=== PATIENT | male | born 1955 | race Caucasian/White ===

== ENCOUNTER → 2018-06-24 | Outpatient (CLI) | payer OTHER ==
[2018-06-24 15:29] LABS: Protein, Urine Quantitative 579.7 mg/dL (0.0-11.9)
== END | disposition home or self-care (01) ==
LOC: LAB 06:00 → LAB SHORT 06:00 → LAB FUT 06-18 13:00
PROVIDERS: Internal Medicine Nephrology
DX: N18.3 Chronic kidney disease, stage 3 (moderate) (principal); D63.1 Anemia in chronic kidney disease; N25.81 Secondary hyperparathyroidism of renal origin; E55.9 Vitamin D deficiency, unspecified; E78.00 Pure hypercholesterolemia, unspecified; R76.9 Abnormal immunological finding in serum, unspecified; R94.6 Abnormal results of thyroid function studies; R94.5 Abnormal results of liver function studies
CPT/HCPCS: 81050; 82043; 82570; 84156

== ENCOUNTER 2018-08-01 13:45 | Inpatient (IN) | payer SELFPAY ==
[~2018-08-01] VITALS: Ht 188 cm; Wt 125.1 kg
[2018-08-01 14:32] LABS: BASOPHILS ABSOLUTE AUTO 0.03 K/mm3 (0.00-0.23); BASOPHILS PERCENT AUTO 0 % (0-2); EOSINOPHILS ABSOLUTE AUTO 0.09 K/mm3 (0.00-0.68); EOSINOPHILS PERCENT AUTO 1 % (0-6); Hematocrit 33.5 % (37.0-53.0); Hemoglobin 11.1 g/dL (13.5-17.5); IMMATURE GRAN ABSOLUTE AUTO 0.26 K/mm3 (0.00-0.10); IMMATURE GRAN PERCENT AUTO 2 % (0-1); LYMPHOCYTES ABSOLUTE AUTO 1.89 K/mm3 (0.84-5.20); LYMPHOCYTES PERCENT AUTO 15 % (21-46); MONOCYTES ABSOLUTE AUTO 1.16 K/mm3 (0.16-1.47); MONOCYTES PERCENT AUTO 9 % (4-13); Mean Corpuscular HGB 30.7 pg (26.0-34.0); Mean Corpuscular HGB Conc 33.1 g/dL (31.5-36.5); Mean Corpuscular Volume 93 fL (80-100); Mean Platelet Volume 10.1 fL (9.1-12.4); NEUTROPHILS ABSOLUTE AUTO 9.47 K/mm3 (1.96-9.15); NEUTROPHILS PERCENT AUTO 73 % (41-73); Platelet Count 284 K/mm3 (150-400); RDW Coefficient Variation 14.2 % (11.7-14.2); RDW Standard Deviation 48.7 fL (35.1-46.3); Red Blood Cell Count 3.62 M/mm3 (4.30-5.90)
[2018-08-01 14:44] LABS: Albumin, Blood 1.2 g/dL (3.4-5.0); Albumin/Globulin Ratio 0.4 (0.8-1.8); Bilirubin, Total 0.3 mg/dL (0.1-1.0); Bun/Creatinine Ratio 44.6 (12.0-20.0); Calcium, Blood 7.2 mg/dL (8.5-10.1); Creatinine, Blood 3.34 mg/dL (0.60-1.20); Globulin, Blood 3.1 g/dL (2.2-4.0); Potassium, Blood 3.8 mmol/L (3.5-5.5); Total Protein, Blood 4.3 g/dL (6.4-8.2)
[2018-08-01 15:38] LABS: Source, Urine Clean Catch
[2018-08-01 15:40] LABS: Bilirubin, Urine Neg (Neg); Blood, Urine 2+ (Neg); Glucose Qualitative, Urine Neg (Neg); Ketones, Urine Neg (Neg); Leukocyte Esterase, Urine Neg (Neg); Nitrite, Urine Neg (Neg); Protein, Urine 4+ (Neg); Specific Gravity, Urine 1.015 (1.003-1.022); Urobilinogen, Urine NORM (Normal)
[2018-08-01] MEDS ORDERED: ASPI325 PO (15:43)
[2018-08-01] MEDS ORDERED: ATOR80 PO (15:43)
[2018-08-01] MEDS ORDERED: ATOR10 PO (15:43)
[2018-08-01] MEDS ORDERED: CALC.25 PO (15:44)
[2018-08-01] MEDS ORDERED: BUME2 PO (15:44)
[2018-08-01] MEDS ORDERED: Vitamin D2000 UNIT PO (15:45)
[2018-08-01] MEDS ORDERED: FAMO20 PO (15:46)
[2018-08-01] MEDS ORDERED: HYDPAM50 PO (15:46)
[2018-08-01] MEDS ORDERED: CLON.1 PO (15:46)
[2018-08-01 15:47] LABS: Appearance, Urine Clear (Clear); Color, Urine Yellow (P-Yellow)
[2018-08-01] MEDS ORDERED: POTCHL10ER PO (15:47)
[2018-08-01] MEDS ORDERED: ONDA4ODT MM (15:47)
[2018-08-01] MEDS ORDERED: METO2.5 PO (15:47)
[2018-08-01 15:48] LABS: Hyaline Casts 0-2 /lpf (0-2); Squamous Epithelial Cells Few /hpf (Few)
[2018-08-01] MEDS ORDERED: PROP10 PO (15:48)
[2018-08-01] MEDS ORDERED: PRED20 PO (15:48)
[2018-08-01 15:49] LABS: Calcium Oxalate Crystals Rare /hpf
[2018-08-01] MEDS ORDERED: SERT50 PO (15:49)
[2018-08-01 15:50] LABS: Bacteria Few /hpf; Renal Epithelial Rare /hpf (0-Rare)
[2018-08-01 16:33] LABS: Free Thyroxine 0.94 ng/dL (0.70-1.60); Triiodothyronine, Free 1.89 pg/mL (2.18-3.98)
--- NOTE | 2018-08-01 17:54 | NUR ---
SHIFT SUMMARY THE PATIENT WAS ADMITTED BY DR. BRADSHAW FOR WEAKNESS AND POSSIBLE ARF. [facility], THE PATIENT REPORTS N&V TODAY. DR. PORRAS IS CONSULTING ON THE CASE. THE PATIENT IS RECEIVING A BOLUS OF LR AT THIS TIME AND RESTING, WILL CONTINUE TO MONITOR.
[2018-08-02] MEDS ORDERED: POTCHL10ER PO (01:24)
--- NOTE | 2018-08-02 04:43 | NUR ---
shift summary: Pt admitted late yesterday. VSS. Dr south into see last pm. Admission and med reconcilliation completed. bladder scan performed after voiding last pm and got [address] south notified per his instructions. Pt able to sleep most of shift last pm. Pt suffers from PTSD and depression.
[2018-08-02 05:40] LABS: BASOPHILS ABSOLUTE AUTO 0.02 K/mm3 (0.00-0.23); BASOPHILS PERCENT AUTO 0 % (0-2); EOSINOPHILS ABSOLUTE AUTO 0.17 K/mm3 (0.00-0.68); EOSINOPHILS PERCENT AUTO 2 % (0-6); Hematocrit 30.9 % (37.0-53.0); Hemoglobin 10.4 g/dL (13.5-17.5); IMMATURE GRAN ABSOLUTE AUTO 0.18 K/mm3 (0.00-0.10); IMMATURE GRAN PERCENT AUTO 2 % (0-1); LYMPHOCYTES ABSOLUTE AUTO 1.75 K/mm3 (0.84-5.20); LYMPHOCYTES PERCENT AUTO 19 % (21-46); MONOCYTES ABSOLUTE AUTO 0.78 K/mm3 (0.16-1.47); MONOCYTES PERCENT AUTO 8 % (4-13); Mean Corpuscular HGB 30.8 pg (26.0-34.0); Mean Corpuscular HGB Conc 33.7 g/dL (31.5-36.5); Mean Corpuscular Volume 91 fL (80-100); Mean Platelet Volume 10.1 fL (9.1-12.4); NEUTROPHILS ABSOLUTE AUTO 6.55 K/mm3 (1.96-9.15); NEUTROPHILS PERCENT AUTO 69 % (41-73); Platelet Count 248 K/mm3 (150-400); RDW Coefficient Variation 14.4 % (11.7-14.2); RDW Standard Deviation 47.8 fL (35.1-46.3); Red Blood Cell Count 3.38 M/mm3 (4.30-5.90); White Blood Cell Count 9.45 K/mm3 (4.00-11.30)
[2018-08-02 05:55] LABS: Alanine Aminotransfer (ALT/SGP 31 U/L (12-78); Albumin/Globulin Ratio 0.3 (0.8-1.8); Alk Phos 33 U/L (50-136); Anion Gap 7 mmol/L (6-16); Aspartate Aminotrans (AST/SGOT 34 U/L (12-37); Bilirubin, Direct <0.1 mg/dL (0.0-0.3); Bilirubin, Indirect Unable to Calculate mg/dL (0.1-0.7); Bilirubin, Total 0.5 mg/dL (0.1-1.0); Blood Urea Nitrogen 133 mg/dL (8-24); Bun/Creatinine Ratio 55.9 (12.0-20.0); CO2, Blood 25 mmol/L (21-32); Calcium, Blood 7.3 mg/dL (8.5-10.1); Chloride, Blood 107 mmol/L (98-108); Creatinine, Blood 2.38 mg/dL (0.60-1.20); Globulin, Blood 2.9 g/dL (2.2-4.0); Glomerular Filtration Rate 29 (60-); Glucose, Blood 99 mg/dL (70-99); Magnesium, Blood 2.8 mg/dL (1.6-2.4); Phosphorus, Blood 4.2 mg/dL (2.5-4.9); Potassium, Blood 3.9 mmol/L (3.5-5.5); Sodium, Blood 139 mmol/L (136-145); Total Protein, Blood 3.9 g/dL (6.4-8.2)
[2018-08-02 07:29] LABS: Amylase, Blood 84 U/L (25-115)
[2018-08-02 11:35] LABS: Campylobacter Sp Not Detected (NOT DETECT); Plesiomonas Shigelloides Not Detected (NOT DETECT)
[2018-08-02 11:36] LABS: Adenovirus F 40/41 Not Detected (NOT DETECT); Astrovirus Not Detected (NOT DETECT); Cryptosporidium Not Detected (NOT DETECT); Cyclospora Cayetanensis Not Detected (NOT DETECT); E. Coli O157 Not Detected (NOT DETECT); Entamoeba Histolytica Not Detected (NOT DETECT); Enteroaggregative E. coli-EAEC Not Detected (NOT DETECT); Enteropathogenic E. coli-EPEC Not Detected (NOT DETECT); Enterotoxigenic E. coli-ETEC Not Detected (NOT DETECT); Giardia Lamblia Not Detected (NOT DETECT); Norovirus GI/GII Not Detected (NOT DETECT); Rotavirus A Not Detected (NOT DETECT); Salmonella Sp Not Detected (NOT DETECT); Sapovirus Not Detected (NOT DETECT); Shiga Toxin-prod E. coli-STEC Not Detected (NOT DETECT); Shigella/Enteroin E. coli-EIEC Not Detected (NOT DETECT); Vibrio Cholerae Not Detected (NOT DETECT); Vibrio Sp Not Detected (NOT DETECT); Yersinia Enterocolitica Not Detected (NOT DETECT)
--- NOTE | 2018-08-02 16:33 | NUR ---
SHIFT SUMMARY THE PATIENT PRESENTED THIS AM WITH VITALS WNL, A&O X4 AND WITH CLEAR LUNG SOUNDS. THE PATIENT HAD AN U/S OF HIS RENAL AREA AND BLADDER AT THE START OF THE SHIFT. THE PATIENT'S DOCTOR PUT IN AN ORDER FOR THE PATIENT'S DIET TO CHANGE FROM NPO TO RENAL, SO THE PATIENT HAS BEEN ABLE TO EAT THIS AFTERNOON. THE PATIENT HAS HAD TWO SMALL, FIRM B/M'S TODAY, WITH A SAMPLE BEING SENT TO THE LAB. THE PATIENT WAS GIVEN A SANDWICH TO EAT BEFORE DINNER. THE PATIENT IS RESTING AT THIS TIME, WILL CONTINUE TO MONITOR.
[2018-08-03 04:48] LABS: BASOPHILS ABSOLUTE AUTO 0.01 K/mm3 (0.00-0.23); BASOPHILS PERCENT AUTO 0 % (0-2); EOSINOPHILS PERCENT AUTO 0 % (0-6); Hematocrit 29.9 % (37.0-53.0); Hemoglobin 9.9 g/dL (13.5-17.5); IMMATURE GRAN ABSOLUTE AUTO 0.17 K/mm3 (0.00-0.10); IMMATURE GRAN PERCENT AUTO 1 % (0-1); LYMPHOCYTES ABSOLUTE AUTO 0.55 K/mm3 (0.84-5.20); LYMPHOCYTES PERCENT AUTO 4 % (21-46); MONOCYTES ABSOLUTE AUTO 0.65 K/mm3 (0.16-1.47); MONOCYTES PERCENT AUTO 4 % (4-13); Mean Corpuscular HGB 30.6 pg (26.0-34.0); Mean Corpuscular HGB Conc 33.1 g/dL (31.5-36.5); Mean Corpuscular Volume 92 fL (80-100); Mean Platelet Volume 10.2 fL (9.1-12.4); NEUTROPHILS PERCENT AUTO 91 % (41-73); Platelet Count 257 K/mm3 (150-400); RDW Standard Deviation 47.4 fL (35.1-46.3); Red Blood Cell Count 3.24 M/mm3 (4.30-5.90); White Blood Cell Count 14.68 K/mm3 (4.00-11.30)
[2018-08-03 05:11] LABS: Anion Gap 8 mmol/L (6-16); Blood Urea Nitrogen 133 mg/dL (8-24); Bun/Creatinine Ratio 45.5 (12.0-20.0); CO2, Blood 23 mmol/L (21-32); Chloride, Blood 103 mmol/L (98-108); Creatinine, Blood 2.92 mg/dL (0.60-1.20); Glomerular Filtration Rate 23 (60-); Glucose, Blood 195 mg/dL (70-99); Magnesium, Blood 2.5 mg/dL (1.6-2.4); Phosphorus, Blood 4.2 mg/dL (2.5-4.9); Potassium, Blood 4.2 mmol/L (3.5-5.5); Sodium, Blood 134 mmol/L (136-145)
[2018-08-03] MEDS ORDERED: Florastor250 MG PO (09:45)
[2018-08-03] MEDS ORDERED: PANT40 PO (09:46)
[2018-08-03] MEDS ORDERED: Requip0.5 MG PO (09:47)
[2018-08-03] MEDS ORDERED: DELTASONE20 MG PO (09:48)
[2018-08-03] MEDS ORDERED: CALCIUM WITH V1 EACH PO (09:52)
[2018-08-03] MEDS ORDERED: NYST100000 PO (11:17)
--- NOTE | 2018-08-03 12:31 | NUR ---
SHIFT SUMMARY/DISCHARGE NOTES PATIENT WAS PENDING DICHARGE UPON MY ARRIVAL THIS AM. HE HAS BEEN VERY PLEASENT. HE DID ASK ABOUT SOME CRAMPING IN HIS HANDS BUT WE ASSURED HIM THAT HIS REQUIP WOULD BE HELPFUL WITH THAT. UPON DISCHARGE WE COVERED HIS DC INSTRUCTIONS WHICH HE EXPRESSED UNDERSTANDING OF. DR. PORRAS ASKED THAT HE BE SEEN SUNDAY THE AT 2 PM WHICH WAS EXPRESSED TO PATIENT. 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 [facility] HAS BEEN CALLED TO PROVIDE RIDE FOR PATIENT TO HIS VAN--HE HAS BEEN NOTIFIED THAT [facility] WILL BE COVERING THE COST OF THAT FOR HIM.
--- NOTE | 2018-08-03 12:53 | NUR ---
DC NOTE PT. TRANSPORTED VIA WHEELCHAIR AT 1250 TO BE PICKED UP BY [facility]. APPROVED BY JORY RYAN FOR [facility] PAY. PT. IS BEING TRANSPORTED TO DR. PORRAS'S OFFICE TO PROPERTY CLAIMS MANAGER HIS VAN.
--- NOTE | 2018-08-03 18:02 | NUR ---
[facility] NOT FILLED BY [facility] PT CALLED TO GO OVER NEW MEDS W/RN. [facility] DID NOT FILL 3 OF PT'S MEDS ORDERED BY DR PORRAS-[facility]XED TO [facility] RE[facility] (PHARMACY WAS CLOSED WHEN CALLED) CALLED PT TO UPDATE HIM [phone] @ [phone]. WILL CALL BACK TO [facility] IN AM.
== END 2018-08-03 12:49 | disposition home or self-care (01) | DRG 394 ==
LOC: ER 13:45 → MEDS 15:56 → ENPENDDIS 08-03 09:02 → MEDS 08-03 12:49
PROVIDERS: Emergency Medicine; Internal Medicine Nephrology; ADMIT Internal Medicine
DX: K52.1 Toxic gastroenteritis and colitis (principal); N17.9 Acute kidney failure, unspecified; N18.4 Chronic kidney disease, stage 4 (severe); E87.1 Hypo-osmolality and hyponatremia; N25.81 Secondary hyperparathyroidism of renal origin; K29.70 Gastritis, unspecified, without bleeding; T36.7X5A Adverse effect of antifungal antibiotics, systemically used, initial encounter; E86.0 Dehydration; K20.8 Other esophagitis; I12.9 Hypertensive chronic kidney disease with stage 1 through stage 4 chronic kidney disease, or unspecified chronic kidney disease; D63.1 Anemia in chronic kidney disease; E86.9 Volume depletion, unspecified; E87.70 Fluid overload, unspecified; E88.09 Other disorders of plasma-protein metabolism, not elsewhere classified; E78.5 Hyperlipidemia, unspecified; N05.0 Unspecified nephritic syndrome with minor glomerular abnormality; G25.81 Restless legs syndrome
CPT/HCPCS: 36415; 71046; 76770; 80053; 80069; 81001; 82140; 82150; 82248; 83690; 83735; 84100; 84439; 84481; 85014; 85018; 85025; 85651; 87507; 93005; 93010; 99285-25; C9113; J0881; J2930; J7120; J7512

== ENCOUNTER 2018-08-06 17:45 | Emergency (ER) | payer SELFPAY ==
[~2018-08-06] VITALS: Ht 188 cm; Wt 127.0 kg
[~2018-08-06 17:45] MED LIST: ASPI325 PO; ATOR10 PO; ATOR80 PO; BUME2 PO; CALC.25 PO; CALCIUM WITH V1 EACH PO; CLON.1 PO; DELTASONE20 MG PO; FAMO20 PO; Florastor250 MG PO; HYDPAM50 PO; METO2.5 PO; NYST100000 PO; ONDA4ODT MM; PANT40 PO; POTCHL10ER PO; PRED20 PO; PROP10 PO; Requip0.5 MG PO; SERT50 PO; Vitamin D2000 UNIT PO
[2018-08-06 18:34] LABS: BASOPHILS ABSOLUTE AUTO 0.01 K/mm3 (0.00-0.23); BASOPHILS PERCENT AUTO 0 % (0-2); EOSINOPHILS ABSOLUTE AUTO 0.01 K/mm3 (0.00-0.68); EOSINOPHILS PERCENT AUTO 0 % (0-6); Hemoglobin 10.4 g/dL (13.5-17.5); IMMATURE GRAN ABSOLUTE AUTO 0.21 K/mm3 (0.00-0.10); IMMATURE GRAN PERCENT AUTO 2 % (0-1); LYMPHOCYTES PERCENT AUTO 3 % (21-46); MONOCYTES ABSOLUTE AUTO 0.22 K/mm3 (0.16-1.47); MONOCYTES PERCENT AUTO 2 % (4-13); Mean Corpuscular HGB Conc 33.5 g/dL (31.5-36.5); Mean Corpuscular Volume 92 fL (80-100); Mean Platelet Volume 9.9 fL (9.1-12.4); NEUTROPHILS ABSOLUTE AUTO 10.69 K/mm3 (1.96-9.15); NEUTROPHILS PERCENT AUTO 94 % (41-73); Platelet Count 256 K/mm3 (150-400); RDW Coefficient Variation 14.4 % (11.7-14.2); RDW Standard Deviation 48.4 fL (35.1-46.3); Red Blood Cell Count 3.36 M/mm3 (4.30-5.90); White Blood Cell Count 11.44 K/mm3 (4.00-11.30)
[2018-08-06 19:30] LABS: Albumin/Globulin Ratio 0.3 (0.8-1.8); Bilirubin, Total 0.2 mg/dL (0.1-1.0); Bun/Creatinine Ratio 44.7 (12.0-20.0); Calcium, Blood 7.9 mg/dL (8.5-10.1); Creatinine, Blood 2.15 mg/dL (0.60-1.20); Globulin, Blood 3.2 g/dL (2.2-4.0); Potassium, Blood 3.8 mmol/L (3.5-5.5); Total Protein, Blood 4.2 g/dL (6.4-8.2)
[2018-08-06] MEDS ORDERED: ONDA4ODT MM (20:04)
== END 2018-08-06 20:48 | disposition home or self-care (01) ==
LOC: ER 17:45
PROVIDERS: Emergency Medicine
DX: R11.2 Nausea with vomiting, unspecified (principal); R19.7 Diarrhea, unspecified; Z91.013 Allergy to seafood; Z79.899 Other long term (current) drug therapy
CPT/HCPCS: 36415; 71046; 80053; 83880; 85025; 93005; 93010; 96361; 96374; 99284-25; J2405; J7030

== ENCOUNTER 2018-08-19 12:52 | Inpatient (IN) | payer SELFPAY ==
[~2018-08-19] VITALS: Ht 188 cm; Wt 125.6 kg
[~2018-08-19 12:52] MED LIST changes: -ASPI325EC PO; -Amoxicillin500 MG PO; -Hydroxyzine HCl50 MG PO; -Inderal 20 mg T20 MG PO; -Midodrine HCl10 MG PO; -NYST100000 PO; -Norco 5-325 Ta1 EACH PO; -ONDA4 PO; -SPIR25 PO; -Thera-Gesic Ana85 GM TOP; -VALACYCLOVIR1000 MG PO
[2018-08-19 13:45] LABS: Source, Urine Voided
[2018-08-19 13:57] LABS: BASOPHILS ABSOLUTE AUTO 0.01 K/mm3 (0.00-0.23); BASOPHILS PERCENT AUTO 0 % (0-2); EOSINOPHILS ABSOLUTE AUTO 0.01 K/mm3 (0.00-0.68); EOSINOPHILS PERCENT AUTO 0 % (0-6); Hematocrit 30.8 % (37.0-53.0); Hemoglobin 9.9 g/dL (13.5-17.5); IMMATURE GRAN ABSOLUTE AUTO 0.19 K/mm3 (0.00-0.10); IMMATURE GRAN PERCENT AUTO 3 % (0-1); LYMPHOCYTES ABSOLUTE AUTO 0.57 K/mm3 (0.84-5.20); LYMPHOCYTES PERCENT AUTO 7 % (21-46); MONOCYTES ABSOLUTE AUTO 0.11 K/mm3 (0.16-1.47); MONOCYTES PERCENT AUTO 1 % (4-13); Mean Corpuscular HGB 31.2 pg (26.0-34.0); Mean Corpuscular HGB Conc 32.1 g/dL (31.5-36.5); Mean Corpuscular Volume 97 fL (80-100); Mean Platelet Volume 9.7 fL (9.1-12.4); NEUTROPHILS ABSOLUTE AUTO 6.82 K/mm3 (1.96-9.15); NEUTROPHILS PERCENT AUTO 89 % (41-73); Platelet Count 317 K/mm3 (150-400); RDW Coefficient Variation 15.7 % (11.7-14.2); RDW Standard Deviation 55.4 fL (35.1-46.3); Red Blood Cell Count 3.17 M/mm3 (4.30-5.90); White Blood Cell Count 7.71 K/mm3 (4.00-11.30)
[2018-08-19 14:01] LABS: Bilirubin, Urine Neg (Neg); Blood, Urine 2+ (Neg); Glucose Qualitative, Urine Neg (Neg); Ketones, Urine Neg (Neg); Leukocyte Esterase, Urine Neg (Neg); Nitrite, Urine Neg (Neg); Protein, Urine 4+ (Neg); Specific Gravity, Urine 1.015 (1.003-1.022); Urobilinogen, Urine NORM (Normal)
[2018-08-19] MEDS ORDERED: Amoxicillin500 MG PO (14:03)
[2018-08-19] MEDS ORDERED: ASPI325 PO (14:04)
[2018-08-19] MEDS ORDERED: ATOR80 PO ×2 (14:05)
[2018-08-19] MEDS ORDERED: CLON.1 PO ×2 (14:06)
[2018-08-19] MEDS ORDERED: CALC.25 PO ×2 (14:06)
[2018-08-19 14:20] LABS: Appearance, Urine Clear (Clear); Color, Urine Yellow (P-Yellow)
[2018-08-19 14:21] LABS: Granular Casts 0-2 /lpf (0); Hyaline Casts 0-2 /lpf (0-2)
[2018-08-19 14:22] LABS: Bacteria Few /hpf; Squamous Epithelial Cells Few /hpf (Few)
[2018-08-19 14:23] LABS: Albumin, Blood 0.9 g/dL (3.4-5.0); Albumin/Globulin Ratio 0.3 (0.8-1.8); Bilirubin, Total 0.2 mg/dL (0.1-1.0); Bun/Creatinine Ratio 31.5 (12.0-20.0); Calcium, Blood 7.6 mg/dL (8.5-10.1); Creatinine, Blood 3.3 mg/dL (0.60-1.20); Globulin, Blood 3.5 g/dL (2.2-4.0); Potassium, Blood 4.3 mmol/L (3.5-5.5); Total Protein, Blood 4.4 g/dL (6.4-8.2); Troponin I 0.036 ng/mL (0.000-0.040)
[2018-08-19] MEDS ORDERED: Vitamin D2000 UNIT PO ×2 (16:56)
[2018-08-19] MEDS ORDERED: HYDPAM50 PO ×2 (17:00)
[2018-08-19] MEDS ORDERED: METO2.5 PO ×2 (17:01)
[2018-08-19] MEDS ORDERED: Inderal 20 mg T20 MG PO ×2 (17:02)
[2018-08-19] MEDS ORDERED: SERT50 PO ×2 (17:03)
--- NOTE | 2018-08-19 17:09 | NUR ---
Initial Visit: Palliative Care Consult for Advanced Care Planning and Symptom Management. Spoke with Dr Arredondo and she requests palliative care to discuss advanced care planning with Pt. Spoke Dr Lemus and he requests the same. He reports Pt is not taking his medication appropriately. Pt is A&Ox4 and reports tolerable 6/10 pain in his back. He reports 5/7 anxiety due to not knowing the future of his health. Pt also reports 3/7 nausea due to empty stomach. Engaged in therapeutic discussion regarding advanced care planning. Pt lives at home alone and is of Yazidism sultana. He is a and served in the [employer]. This RN thanked him for his service. Pt reports that he struggles with getting dressed and occasionally can take 2 hours. He states "I'M slow". Pt reports he has a shower bench and feels he can shower safely. He reports feeling week after ambulating approximately 50 feet. He attempts to park as close to the store as possible and uses a electric sit down cart the store provides. Pt reports difficulty standing longing enough to clean his dishes and struggles with laundry. Pt reports having discussion with the [facility] regarding the [facility] chief minister program. He was told the caregivers will not help with cleaning, just help with bathing. Discussed the importance of taking his medications appropriately to help manage his health. Educated Pt on the importance of having routine discussion with his PCP regarding his health issues in order to plan accordingly. Discussed the importance of having caregivers in the home. Pt V/U understanding of education and states that he would like assistance with starting the medicaid process. He states that he struggles with reading and writing. Discussed AD/POLST with Pt and he states he is not interested in completing one at this time. Pt reports no other concerns at this time. Pt requires assistance with medication management, cleaning, and occasional dressing. Plan: Placed social service consult for assistance with medicaid process for in home caregivers. Will follow for symptom management once admitted to the floor. Pt may benefit from physical therapy evaluation pending recommendation from hospitalist.
[2018-08-20 04:44] LABS: BASOPHILS PERCENT AUTO 0 % (0-2); EOSINOPHILS PERCENT AUTO 0 % (0-6); Hematocrit 26.5 % (37.0-53.0); Hemoglobin 8.7 g/dL (13.5-17.5); IMMATURE GRAN ABSOLUTE AUTO 0.13 K/mm3 (0.00-0.10); IMMATURE GRAN PERCENT AUTO 2 % (0-1); LYMPHOCYTES ABSOLUTE AUTO 0.51 K/mm3 (0.84-5.20); LYMPHOCYTES PERCENT AUTO 7 % (21-46); MONOCYTES ABSOLUTE AUTO 0.18 K/mm3 (0.16-1.47); MONOCYTES PERCENT AUTO 3 % (4-13); Mean Corpuscular HGB 31.4 pg (26.0-34.0); Mean Corpuscular HGB Conc 32.8 g/dL (31.5-36.5); Mean Corpuscular Volume 96 fL (80-100); Mean Platelet Volume 9.4 fL (9.1-12.4); NEUTROPHILS ABSOLUTE AUTO 6.39 K/mm3 (1.96-9.15); NEUTROPHILS PERCENT AUTO 89 % (41-73); Platelet Count 310 K/mm3 (150-400); RDW Coefficient Variation 15.4 % (11.7-14.2); RDW Standard Deviation 53.7 fL (35.1-46.3); Red Blood Cell Count 2.77 M/mm3 (4.30-5.90); White Blood Cell Count 7.21 K/mm3 (4.00-11.30)
[2018-08-20 05:04] LABS: Alanine Aminotransfer (ALT/SGP 22 U/L (12-78); Albumin, Blood 1.2 g/dL (3.4-5.0); Albumin/Globulin Ratio 0.4 (0.8-1.8); Alk Phos 49 U/L (50-136); Anion Gap 7 mmol/L (6-16); Aspartate Aminotrans (AST/SGOT 20 U/L (12-37); Bilirubin, Total 0.4 mg/dL (0.1-1.0); Blood Urea Nitrogen 94 mg/dL (8-24); Bun/Creatinine Ratio 29.9 (12.0-20.0); CO2, Blood 24 mmol/L (21-32); Calcium, Blood 7.5 mg/dL (8.5-10.1); Chloride, Blood 109 mmol/L (98-108); Creatinine, Blood 3.14 mg/dL (0.60-1.20); Globulin, Blood 2.9 g/dL (2.2-4.0); Glomerular Filtration Rate 21 (60-); Glucose, Blood 135 mg/dL (70-99); Magnesium, Blood 2.1 mg/dL (1.6-2.4); Phosphorus, Blood 5.2 mg/dL (2.5-4.9); Potassium, Blood 4.1 mmol/L (3.5-5.5); Sodium, Blood 140 mmol/L (136-145); Total Protein, Blood 4.1 g/dL (6.4-8.2)
--- NOTE | 2018-08-20 06:37 | NUR ---
SHIFT SUMMARY PT SLEPT WELL T/O NIGHT. AOX4. VSS. DENIES SOB OR DIZZINESS. REPORTED NAUSEA 2X T/O NIGHT & WAS MEDICATED W/ZOFRAN PER ORDERS. REPORTS 7 CHRONIC BACK PAIN & DENIES ANY NEED FOR MEDICATION @THIS TIME. HAS RED RASH THAT STARTS ABOVE UPPER RIGHT BREAST & RAIDIATES UNDER ARM TO BACK, NO WEEPING OR OPEN SORES NOTICED, PT REPORTS IT IS SHINGLES & HE HAS BEEN ON ANTIBIOTICS THROUGH THE [facility] TO HELP IT. INDEPENDENT IN ROOM. CALL LIGHT IS IN REACH.
--- NOTE | 2018-08-20 13:38 | NUR ---
Pt visit this afternoon. Pt reports his pain and nausea are currently managed. Pt reports still having concerns with care needs for when he is at home. Instructed Pt this RN will discuss concerns with care management team. Pt reports no other concerns. Spoke with hospice spiritual care coordinator Alena regarding Pt concerns and need for assistance in the home. Alena reports she will visit Pt and establish a plan. Palliative Care will remain available.
--- NOTE | 2018-08-20 16:49 | NUR ---
SHIFT SUMMARY THE PATIENT PRESENTED THIS MORNING A&O X4, WITH VITALS WNL, AND WITH CLEAR LUNG SOUNDS. THE PATIENT IS INDEPENDANT IN HIS ROOM AND HAS BEEN OUTSIDE IN A WHEELCHAIR. THE PATIENT CALLS APPROPERIATELY WHEN NEEDED. THE PATIENT IS RESTING IN HIS ROOM AT THIS TIME, WILL CONTINUE TO MONITOR.
--- NOTE | 2018-08-20 23:59 | NUR ---
2211 PT LYING IN BED, REPORTS BACK PAIN AT 7/10, GAVE PT TYLENOL, WILL EVAL FOR EFFECT. PT HAS 3+EDEMA IN LE'S, PT IS ON BUMEX. PT REPORTS SLIGHT NAUSEA, WILL MONITOR. NO OTHER APPARENT SIGNS OF DISTRESS. CALL LIGHT IS IN REACH.
--- NOTE | 2018-08-21 03:12 | NUR ---
0000 PT LYING IN BED, EYES CLOSED, APPEARS TO BE RESTING. BREATHING IS EVEN, UNLABORED. NO APPARENT SIGNS OF DISTRESS. CALL LIGHT IS IN REACH. 0200 PT LYING IN BED, EYES CLOSED, APPEARS TO BE RESTING. WAKES EASILY TO VERBAL STIMULI. NO APPARENT SIGNS OF DISTRESS. CALL LIGHT IS IN REACH.
[2018-08-21] MEDS ORDERED: Amoxicillin500 MG PO ×2 (03:28)
[2018-08-21] MEDS ORDERED: ASPI325EC PO ×2 (03:29)
[2018-08-21] MEDS ORDERED: Norco 5-325 Ta1 EACH PO ×2 (03:32)
[2018-08-21] MEDS ORDERED: ONDA4 PO ×2 (03:35)
[2018-08-21] MEDS ORDERED: POTCHL10ER PO ×2 (03:36)
[2018-08-21] MEDS ORDERED: PRED20 PO ×2 (03:37)
[2018-08-21] MEDS ORDERED: Thera-Gesic Ana85 GM TOP ×2 (03:38)
[2018-08-21] MEDS ORDERED: VALACYCLOVIR1000 MG PO ×2 (03:39)
--- NOTE | 2018-08-21 04:41 | NUR ---
PT LYING IN BED, EYES CLOSED, APPEARS TO BE RESTING. WAKES EASILY TO VERBAL STIMULI. NO APPARENT SIGNS OF DISTRESS. CALL LIGHT IS IN REACH.
--- NOTE | 2018-08-21 04:42 | NUR ---
PT IS AAO X 4. REPORTS BACK PAIN. GOT TYLENOL X 1. HAD SLIGHT NAUSEA BUT DID NOT REQUIRE MEDS FOR THAT. TELE SB IN 50'S. IN CONTACT ISOLATION FOR SHINGLES. DECLINES TO WEAR SCD'S.
[2018-08-21 04:50] LABS: Hematocrit 24.1 % (37.0-53.0); Hemoglobin 7.9 g/dL (13.5-17.5)
[2018-08-21 05:07] LABS: Albumin, Blood 1.4 g/dL (3.4-5.0); Anion Gap 6 mmol/L (6-16); Blood Urea Nitrogen 94 mg/dL (8-24); Bun/Creatinine Ratio 33.1 (12.0-20.0); CO2, Blood 24 mmol/L (21-32); Calcium, Blood 7.2 mg/dL (8.5-10.1); Chloride, Blood 110 mmol/L (98-108); Creatinine, Blood 2.84 mg/dL (0.60-1.20); Glomerular Filtration Rate 24 (60-); Glucose, Blood 105 mg/dL (70-99); Phosphorus, Blood 4.1 mg/dL (2.5-4.9); Potassium, Blood 3.9 mmol/L (3.5-5.5); Sodium, Blood 140 mmol/L (136-145)
--- NOTE | 2018-08-21 05:33 | NUR ---
PT LYING IN BED, EYES CLOSED, WAKES EASILY TO VERBAL STIMULI. NO APPARENT SIGNS OF DISTRESS. PT DENIES NEED FOR ANYTHING AT THIS TIME. CALL LIGHT IS IN REACH. NO OTHER CHANGES THIS SHIFT.
--- NOTE | 2018-08-21 10:39 | NUR ---
PATIENT WAS OFFERED A SHOWER AND DECLINED RIGHT NOW BUT MAYBE WILL TAKE ONE LATER. WILL CHECK BACK THIS AFTERNOON AND SEE IF HE IS WILLING TO TAKE ONE.
--- NOTE | 2018-08-21 19:35 | NUR ---
SHIFT SUMMARY PT INDEPENDENT IN ROOM. TOOK HIMSELF OUT IN W/C THIS AFTERNOON AFTER TAKING A SHOWER. DENIES PAIN TO SHINGLES AREA. HAS NO DRAINAGE TO AREA. DOES HAVE GENERAILZED EDEMA THAT IS WORSE IN HIS LEGS. REPORTS HE FEELS MORE SWOLLEN SINCE GOING OUT IN W/C AND DRINKING A COFFEE FROM COFFEE CART. DENIES ANY SOB. BP HAS IMPROVED THROUGH DAY AND HASN'T REQUIRED MIDODRINE AT 1300 OR 1700.
[2018-08-22 05:14] LABS: Hematocrit 25.6 % (37.0-53.0); Hemoglobin 8.4 g/dL (13.5-17.5)
[2018-08-22 05:46] LABS: Magnesium, Blood 1.9 mg/dL (1.6-2.4)
[2018-08-22 05:48] LABS: Albumin, Blood 1.6 g/dL (3.4-5.0); Anion Gap 7 mmol/L (6-16); Blood Urea Nitrogen 79 mg/dL (8-24); Bun/Creatinine Ratio 36.1 (12.0-20.0); CO2, Blood 24 mmol/L (21-32); Calcium, Blood 7.4 mg/dL (8.5-10.1); Chloride, Blood 110 mmol/L (98-108); Creatinine, Blood 2.19 mg/dL (0.60-1.20); Glomerular Filtration Rate 32 (60-); Glucose, Blood 103 mg/dL (70-99); Phosphorus, Blood 3.6 mg/dL (2.5-4.9); Potassium, Blood 3.4 mmol/L (3.5-5.5); Sodium, Blood 141 mmol/L (136-145)
--- NOTE | 2018-08-22 07:27 | NUR ---
SHIFT SUMMARY PT A/O INDEPENDENT IN ROOM BUT WILL USE W/C IN HALLWAY. C/O NAUSEA X1 AND MEDICATED PER EMAR. HE WAS ABLE TO SLEEP ON AND OFF T/O NIGHT. CALL LIGHT IN REACH.
--- NOTE | 2018-08-22 18:29 | NUR ---
SHIFT SUMMARY PATIENT TEARFUL TODAY REGARDING LATE . DR. PORRAS IN TO VISIT THIS EVENING. FLUID RESTRICTION STARTED FOR 1000ML. PATIENT ANXIOUS ABOUT THIS. RECIEVED HOME ANXIETY MEDICATION, ABLE TO SLEEP SOME EARLY AFTERNOON. NO ACUTE CHANGES NOTED.
[2018-08-23 05:03] LABS: BASOPHILS ABSOLUTE AUTO 0.03 K/mm3 (0.00-0.23); BASOPHILS PERCENT AUTO 0 % (0-2); EOSINOPHILS ABSOLUTE AUTO 0.06 K/mm3 (0.00-0.68); EOSINOPHILS PERCENT AUTO 1 % (0-6); Hematocrit 28.1 % (37.0-53.0); Hemoglobin 9.2 g/dL (13.5-17.5); IMMATURE GRAN ABSOLUTE AUTO 0.41 K/mm3 (0.00-0.10); IMMATURE GRAN PERCENT AUTO 4 % (0-1); LYMPHOCYTES PERCENT AUTO 21 % (21-46); MONOCYTES ABSOLUTE AUTO 1.09 K/mm3 (0.16-1.47); MONOCYTES PERCENT AUTO 10 % (4-13); Mean Corpuscular HGB 31.4 pg (26.0-34.0); Mean Corpuscular HGB Conc 32.7 g/dL (31.5-36.5); Mean Corpuscular Volume 96 fL (80-100); Mean Platelet Volume 9.2 fL (9.1-12.4); NEUTROPHILS ABSOLUTE AUTO 7.35 K/mm3 (1.96-9.15); NEUTROPHILS PERCENT AUTO 65 % (41-73); NRBC ABSOLUTE 0.02 K/mm3 (0.00-0.02); NRBC Auto 0.2 /100 WBC (0.0-0.2); Platelet Count 312 K/mm3 (150-400); RDW Standard Deviation 54.2 fL (35.1-46.3); Red Blood Cell Count 2.93 M/mm3 (4.30-5.90); White Blood Cell Count 11.24 K/mm3 (4.00-11.30)
[2018-08-23 05:17] LABS: Albumin, Blood 1.3 g/dL (3.4-5.0); Anion Gap 5 mmol/L (6-16); Blood Urea Nitrogen 67 mg/dL (8-24); Bun/Creatinine Ratio 34.4 (12.0-20.0); CO2, Blood 27 mmol/L (21-32); Calcium, Blood 7.4 mg/dL (8.5-10.1); Chloride, Blood 111 mmol/L (98-108); Creatinine, Blood 1.95 mg/dL (0.60-1.20); Glomerular Filtration Rate 37 (60-); Glucose, Blood 102 mg/dL (70-99); Magnesium, Blood 1.8 mg/dL (1.6-2.4); Phosphorus, Blood 3.6 mg/dL (2.5-4.9); Potassium, Blood 3.5 mmol/L (3.5-5.5); Sodium, Blood 143 mmol/L (136-145)
--- NOTE | 2018-08-23 06:11 | NUR ---
SHIFT SUMMARY PT A/O. NO C/O PAIN. HE WAS ABLE TO SLEEP ON AND OFF T/O NIGHT. 1000 FLUID RESTRICTION. CALL LIGHT IN REACH.
--- NOTE | 2018-08-23 16:53 | NUR ---
ALERT. ORIENTED. UNLABORED RESPIRATIONS. ABLE TO MAKE NEEDS KNOWN. SHORT TERM MEMORY LOSS, BUT STS REMEMBERS FROM WHEN HE WAS A CHILD AND STS HAS PTSD FROM IT. AWARE WILL NEED TO F/U W/HIS COUNSELORS AT [facility] COOPERATIVE. SHINGLES TO BACK AND RT C.W. DRY. IV PATENT. TELE ON AND PER TECH SR. INDEPENDENT IN ROOM. USES W/C IN HALLWAY. TM.
[2018-08-24 04:52] LABS: Hematocrit 28.9 % (37.0-53.0); Hemoglobin 9.5 g/dL (13.5-17.5)
[2018-08-24 05:13] LABS: Anion Gap 5 mmol/L (6-16); Blood Urea Nitrogen 64 mg/dL (8-24); Bun/Creatinine Ratio 39.3 (12.0-20.0); CO2, Blood 27 mmol/L (21-32); Calcium, Blood 7.4 mg/dL (8.5-10.1); Chloride, Blood 111 mmol/L (98-108); Creatinine, Blood 1.63 mg/dL (0.60-1.20); Glomerular Filtration Rate 45 (60-); Glucose, Blood 113 mg/dL (70-99); Magnesium, Blood 1.7 mg/dL (1.6-2.4); Phosphorus, Blood 3.4 mg/dL (2.5-4.9); Potassium, Blood 3.3 mmol/L (3.5-5.5); Sodium, Blood 143 mmol/L (136-145)
--- NOTE | 2018-08-24 07:34 | NUR ---
SHIFT SUMMARY PT IS A 63 Y/O MALE, ADMITTED FOR SYMPTOMATIC HYPOTENSION. HE IS A&O X 4, AND INDEPENDENT IN THE ROOM, THOUGH HE USES THE WHEELCHAIR FOR ANY DISTANCE OUTSIDE OF HIS ROOM. THE PT'S VITALS HAVE BEEN STABLE, WITH HIS BP REMAINING IN THE 130-140S SYSTOLICALLY, THOUGH HE STILL REPORTS SOME DIZZINESS WITH STANDING AND SUDDEN MOVEMENTS. HE DENIED ANY ACUTE PAIN, NAUSEA OR SOB. NO OTHER ACUTE CHANGES IN PT CONDITION NOTED. REPORT GIVEN TO ONCOMING NURSE.
--- NOTE | 2018-08-24 18:47 | NUR ---
SHIFT SUMMARY PT INDEPENDENT IN ROOM. STATES HE STILL GETS DIZZY WHEN HE IS UP MOVING AROUND. HAD INSTRUCTED PT TO USE URINALS TO VOID INTO THIS MORNING BUT REPORTED HE ESTIMATED HOW MUCH HE WENT DUE TO DIFFICULTY WITH ARRANGING CLOTHING ETC TO USE IT. HAT PLACED IN TOILET AFTER DISCUSSING WITH HIM IMPORTANCE OF ACCURATE OUTPUT. HAS BEEN FOLLOWING FLUID RESTRICTION. DOZING ALL AFTERNOON.
--- NOTE | 2018-08-25 04:38 | NUR ---
SHIFT SUMMARY PT REPORTS HE SLEPT WELL. NO ACUTE CHANGES THIS SHIFT. AOX4. VSS. DENIES ANY NAUSEA OR SOB. REPORTS 5/10 PAIN IN BACK, HOWEVER DENIES THE NEED FOR PAIN MEDS & STATES PAIN LEVEL IS TOLERABLE. DENIES HEADACHE OR DIZZINESS WHILE @REST, REPORTS HE OCCASIONALLY FEELS DIZZY W/AMBULATION, ENCOURAGED PT TO CALL FOR SBA WHEN THIS OCCURS. CALL LIGHT IS IN REACH.
[2018-08-25 04:43] LABS: Hematocrit 30.1 % (37.0-53.0); Hemoglobin 9.7 g/dL (13.5-17.5)
[2018-08-25 05:04] LABS: Anion Gap 6 mmol/L (6-16); Blood Urea Nitrogen 60 mg/dL (8-24); Bun/Creatinine Ratio 37.3 (12.0-20.0); CO2, Blood 26 mmol/L (21-32); Calcium, Blood 7.2 mg/dL (8.5-10.1); Chloride, Blood 112 mmol/L (98-108); Creatinine, Blood 1.61 mg/dL (0.60-1.20); Glomerular Filtration Rate 46 (60-); Glucose, Blood 101 mg/dL (70-99); Magnesium, Blood 1.7 mg/dL (1.6-2.4); Phosphorus, Blood 3.7 mg/dL (2.5-4.9); Potassium, Blood 3.3 mmol/L (3.5-5.5); Sodium, Blood 144 mmol/L (136-145)
--- NOTE | 2018-08-25 18:47 | NUR ---
SHIFT SUMMARY PT UP TO BATHROOM INDEPENDENTLY. P.T. IN TO SEE PT AND STATED HE COULD CONTINUE TO BE INDEPENDENT. HAS TREMORS ESPECIALLY WHEN FOCUSING ON USING HANDS. MD REPORTS PLANS FOR PT TO DISCHARGE TOMORROW. REPORTS REGLAN HELPING DECREASE NAUSEA. EASILY FATIGUED.
[2018-08-26 05:24] LABS: Hematocrit 30.5 % (37.0-53.0); Hemoglobin 9.9 g/dL (13.5-17.5)
[2018-08-26 05:52] LABS: Magnesium, Blood 1.7 mg/dL (1.6-2.4)
[2018-08-26 05:54] LABS: Albumin, Blood 0.9 g/dL (3.4-5.0); Anion Gap 8 mmol/L (6-16); Blood Urea Nitrogen 56 mg/dL (8-24); Bun/Creatinine Ratio 37.1 (12.0-20.0); CO2, Blood 27 mmol/L (21-32); Calcium, Blood 7.3 mg/dL (8.5-10.1); Chloride, Blood 109 mmol/L (98-108); Creatinine, Blood 1.51 mg/dL (0.60-1.20); Glomerular Filtration Rate 50 (60-); Glucose, Blood 109 mg/dL (70-99); Phosphorus, Blood 3.7 mg/dL (2.5-4.9); Potassium, Blood 3.4 mmol/L (3.5-5.5); Sodium, Blood 144 mmol/L (136-145)
--- NOTE | 2018-08-26 05:58 | NUR ---
SHIFT SUMMARY PT SLEPT WELL T/O NIGHT. NO ACUTE CHANGES THIS SHIFT. AOX4. VSS. DENIES NAUSEA OR SOB. REPORTS BACK PAIN, DENIES NEED FOR ANY MEDICATION. IND IN ROOM, DENIES DIZZINESS W/AMBULATION. PER PCU AGRICULTURAL PRODUCE COMMISSION AGENT PT IS NSR W/HR 67. CALL LIGHT IS IN REACH.
--- NOTE | 2018-08-26 12:41 | NUR ---
DISCHARGE ORDERS THIS RN TALKED WITH DR. PORRAS ABOUT PT'S DISCHARGE. DR. PORRAS IS OK WITH PT DISCHARGING TODAY AND GAVE MULITPLE ORDERS TO THIS RN FOR PT'S DISCHARGE. THIS RN WROTE DISCHARGE ORDERS AND GAVE TO DR. COLES FOR HIM TO WRITE IN THE DISCAHRGE ORDER.
[2018-08-26] MEDS ORDERED: Midodrine HCl10 MG PO ×2 (15:33)
[2018-08-26] MEDS ORDERED: SPIR25 PO ×2 (15:34)
--- NOTE | 2018-08-26 18:55 | NUR ---
DISCHARGE PT DISCHARGED TO HOME. THIS RN EXPLAINED DISCHARGE INSTRUCTIONS AND MEDICATIONS TO PT AND HE REPORTS HE UNDERSTANDS. MEDICATIONS FAXED TO [facility]. PT TRANSFERRED TO THE [facility] FOR HIS CAR BY [facility] WHEELCHAIR [place].
== END 2018-08-26 17:47 | disposition home or self-care (01) | DRG 684 ==
LOC: ER 12:52 → MEDS 16:57 → ENPENDDIS 08-26 13:12 → MEDS 08-26 17:47
PROVIDERS: Emergency Medicine; Internal Medicine Nephrology; ADMIT Internal Medicine
DX: N17.0 Acute kidney failure with tubular necrosis (principal); N04.9 Nephrotic syndrome with unspecified morphologic changes; N05.0 Unspecified nephritic syndrome with minor glomerular abnormality; E87.6 Hypokalemia; E87.70 Fluid overload, unspecified; E66.9 Obesity, unspecified; E78.5 Hyperlipidemia, unspecified; E88.09 Other disorders of plasma-protein metabolism, not elsewhere classified; N25.81 Secondary hyperparathyroidism of renal origin; N18.4 Chronic kidney disease, stage 4 (severe); Z68.32 Body mass index [BMI] 32.0-32.9, adult; I95.1 Orthostatic hypotension; D63.1 Anemia in chronic kidney disease; E86.0 Dehydration; B02.9 Zoster without complications; G25.81 Restless legs syndrome; Z51.5 Encounter for palliative care
CPT/HCPCS: 36415; 71046; 80053; 80069; 81001; 83735; 83880; 84100; 84484; 85014; 85018; 85025; 93005; 93010; 97161; 97530; 99285-25; J0881; J1650; J1940; J2405; J2930; J3480; J7050; J7512; P9046

== ENCOUNTER → 2018-08-19 | Outpatient (CLI) | payer OTHER ==
[~2018-08-19] MED LIST changes: +ASPI325EC PO; +Amoxicillin500 MG PO; +CALCIUM 500 +1 EAC3 PO; -CALCIUM WITH V1 EACH PO; -Florastor250 MG PO; +Hydroxyzine HCl50 MG PO; +Inderal 20 mg T20 MG PO; +LACT PO; +Midodrine HCl10 MG PO; +NYST100000 SS; +Norco 5-325 Ta1 EACH PO; +ONDA4 PO; +SPIR25 PO; +Thera-Gesic Ana85 GM TOP; +VALACYCLOVIR1000 MG PO
[2018-08-19 10:42] LABS: Sodium, Urine 28 mmol/L (20-110)
[2018-08-19 11:31] LABS: Microalbumin, Urine Quant. >6800.000 mg/L (0.000-20.000); Protein, Urine Quantitative 1038.1 mg/dL (0.0-11.9)
== END | disposition home or self-care (01) ==
LOC: LAB SHORT 06:00 → LAB 06:00 → LAB FUT 08-16 15:20
PROVIDERS: Internal Medicine Nephrology
DX: Z79.01 Long term (current) use of anticoagulants (principal); Z51.81 Encounter for therapeutic drug level monitoring; N18.4 Chronic kidney disease, stage 4 (severe); D63.1 Anemia in chronic kidney disease; N25.81 Secondary hyperparathyroidism of renal origin; E55.9 Vitamin D deficiency, unspecified; E78.00 Pure hypercholesterolemia, unspecified; R76.9 Abnormal immunological finding in serum, unspecified; R94.5 Abnormal results of liver function studies; R94.6 Abnormal results of thyroid function studies
CPT/HCPCS: 81050; 82043; 82570; 84156; 84300

== ENCOUNTER 2018-08-28 17:55 | Inpatient (IN) | payer SELFPAY ==
[~2018-08-28] VITALS: Ht 188 cm; Wt 121.1 kg
[~2018-08-28 17:55] MED LIST changes: +ASPI325EC PO; +Amoxicillin500 MG PO; +Inderal 20 mg T20 MG PO; +Midodrine HCl10 MG PO; +Norco 5-325 Ta1 EACH PO; +ONDA4 PO; +SPIR25 PO; +Thera-Gesic Ana85 GM TOP; +VALACYCLOVIR1000 MG PO
[2018-08-28] MEDS ORDERED: Midodrine HCl10 MG PO (18:12)
[2018-08-28] MEDS ORDERED: Amoxicillin500 MG PO (18:12)
[2018-08-28] MEDS ORDERED: Hydroxyzine HCl50 MG PO (18:53)
[2018-08-28] MEDS ORDERED: NYST100000 PO (18:58)
[2018-08-28] MEDS ORDERED: PANT40 PO (19:07)
[2018-08-28 22:32] LABS: Bun/Creatinine Ratio 33.8 (12.0-20.0); Calcium, Blood 7.1 mg/dL (8.5-10.1); Creatinine, Blood 1.3 mg/dL (0.60-1.20)
[2018-08-29 04:30] LABS: Hemoglobin 8.8 g/dL (13.5-17.5)
[2018-08-29 04:56] LABS: Anion Gap 5 mmol/L (6-16); Blood Urea Nitrogen 41 mg/dL (8-24); CO2, Blood 26 mmol/L (21-32); Calcium, Blood 6.9 mg/dL (8.5-10.1); Chloride, Blood 110 mmol/L (98-108); Creatinine, Blood 1.14 mg/dL (0.60-1.20); Glomerular Filtration Rate >60 (60-); Glucose, Blood 97 mg/dL (70-99); Potassium, Blood 3.3 mmol/L (3.5-5.5); Sodium, Blood 141 mmol/L (136-145)
--- NOTE | 2018-08-29 07:28 | NUR ---
call light in reach, saline locked, room air, walking rounds completed with staff
--- NOTE | 2018-08-29 16:02 | NUR ---
SUMMARY PT IS A/O X4, SBA TO BSC. ORTHO VS INSIGNIFICANT HOWEVER PT DID STATE SOME DIZZINESS WHEN STANDING, ENCOURAGED TO DANGLE. HX CKD, DR CASH ORDER CONSULT WITH DR PORRAS TODAY, DR PORRAS HAS REVIEWED LABS & PLACED ORDERS. K+ LOW, 3.3 SUPPLEMENT INCREASED. BLE & BUE EDEMA NOTED, PT STATE CHRONIC D/T RENAL FX. 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 WILL CONSULT BENDER MACHINE OPERATOR. VSS.
[2018-08-30 04:59] LABS: Hematocrit 26.5 % (37.0-53.0); Hemoglobin 8.8 g/dL (13.5-17.5)
[2018-08-30 05:29] LABS: Albumin, Blood 0.9 g/dL (3.4-5.0); Anion Gap 8 mmol/L (6-16); Blood Urea Nitrogen 44 mg/dL (8-24); Bun/Creatinine Ratio 30.8 (12.0-20.0); CO2, Blood 24 mmol/L (21-32); Chloride, Blood 107 mmol/L (98-108); Creatinine, Blood 1.43 mg/dL (0.60-1.20); Glomerular Filtration Rate 53 (60-); Glucose, Blood 122 mg/dL (70-99); Magnesium, Blood 1.9 mg/dL (1.6-2.4); Phosphorus, Blood 3.5 mg/dL (2.5-4.9); Potassium, Blood 3.5 mmol/L (3.5-5.5); Sodium, Blood 139 mmol/L (136-145)
--- NOTE | 2018-08-30 07:17 | NUR ---
call light in reach, saline locked, room air, tele on, walking rounds completed with day staff, legs remain weak, orthastatic bp shows drop in pressure when stands
--- NOTE | 2018-08-30 10:05 | NUR ---
DR. CASH SAID TO ORDER PT/OT FOR EVAL. NO OTHER NEW ORDERS AT THIS TIME.
--- NOTE | 2018-08-30 16:32 | NUR ---
SHIFT SUMMARY- PT AXO X3. PT DENIES PAIN. DENIES N/V. DENIES SOB. RESP E/U ON RA. NSR AT 69 PER PCU GAMEPLAY ENGINEER. PT/OT IN TO WORK WITH PT. BOTH RECOMMENDING HOME HEALTH AT THIS TIME. PT CONTINUES TO REPORT DIZZINESS UPON GETTING UP/STANDING. 1-2 ASSIST WITH FWW AND GB. NO OTHER SIGNIFICANT CHANGES THIS SHIFT.
--- NOTE | 2018-08-31 05:12 | NUR ---
bladder scan of 105 post void of 100ml, denied urge to urinate, said it felt like it had all gone, had not gone for 4 hours prior to voiding
[2018-08-31 05:27] LABS: Hematocrit 28.3 % (37.0-53.0); Hemoglobin 9.2 g/dL (13.5-17.5)
[2018-08-31 05:49] LABS: Albumin, Blood 0.9 g/dL (3.4-5.0); Anion Gap 8 mmol/L (6-16); Blood Urea Nitrogen 48 mg/dL (8-24); CO2, Blood 24 mmol/L (21-32); Chloride, Blood 108 mmol/L (98-108); Glomerular Filtration Rate 46 (60-); Glucose, Blood 109 mg/dL (70-99); Magnesium, Blood 1.9 mg/dL (1.6-2.4); Phosphorus, Blood 2.9 mg/dL (2.5-4.9); Potassium, Blood 3.4 mmol/L (3.5-5.5); Sodium, Blood 140 mmol/L (136-145)
--- NOTE | 2018-08-31 06:16 | NUR ---
resting quietly, easily roused, no s/sx of fainting noted, looking forward to going home with home health to assist with medication management, call light in reach, saline locked, room air, will continue to monitor and treat until walking rounds completed with day staff
--- NOTE | 2018-08-31 14:25 | NUR ---
D/C INSTRUCTIONS PROVIDED AND EXPLAINED TO PT. IV REMOVED. TELE DC'D. PT D/C VIA WHEELCHAIR WITH TRANSPORT.
== END 2018-08-31 13:32 | disposition home health service (06) | DRG 312 ==
LOC: ER 17:55 → MEDS 19:19 → ENPENDDIS 08-31 10:31 → MEDS 08-31 13:32
PROVIDERS: Internal Medicine; Internal Medicine Nephrology; Nurse Practitioner Acute Care; ADMIT Internal Medicine
DX: I95.1 Orthostatic hypotension (principal); N17.9 Acute kidney failure, unspecified; N04.9 Nephrotic syndrome with unspecified morphologic changes; N25.81 Secondary hyperparathyroidism of renal origin; N18.4 Chronic kidney disease, stage 4 (severe); E87.6 Hypokalemia; N05.0 Unspecified nephritic syndrome with minor glomerular abnormality; D63.1 Anemia in chronic kidney disease; I12.9 Hypertensive chronic kidney disease with stage 1 through stage 4 chronic kidney disease, or unspecified chronic kidney disease; E87.70 Fluid overload, unspecified; E88.09 Other disorders of plasma-protein metabolism, not elsewhere classified; E78.5 Hyperlipidemia, unspecified; G25.81 Restless legs syndrome; B02.9 Zoster without complications
CPT/HCPCS: 36415; 71046; 80048; 80069; 83735; 84132; 85014; 85018; 93005; 93010; 97116; 97162; 97165; 97530; 99285-25; J0881; J1650; J2405; J3480; J7050; J7120; J7512; P9046

== ENCOUNTER 2018-10-08 14:45 | Emergency (ER) | payer OTHER ==
[~2018-10-08] VITALS: Ht 188 cm; Wt 108.4 kg
[~2018-10-08 14:45] MED LIST changes: -BUME2 PO; -CALCIUM 500 +1 EAC3 PO; +Hydroxyzine HCl50 MG PO; +NYST100000 PO; -ONDA4 PO
[2018-10-08 15:20] LABS: BASOPHILS ABSOLUTE AUTO 0.04 K/mm3 (0.00-0.23); BASOPHILS PERCENT AUTO 0 % (0-2); EOSINOPHILS ABSOLUTE AUTO 0.05 K/mm3 (0.00-0.68); EOSINOPHILS PERCENT AUTO 0 % (0-6); Hematocrit 29.6 % (37.0-53.0); Hemoglobin 9.8 g/dL (13.5-17.5); IMMATURE GRAN ABSOLUTE AUTO 0.43 K/mm3 (0.00-0.10); IMMATURE GRAN PERCENT AUTO 3 % (0-1); LYMPHOCYTES ABSOLUTE AUTO 0.79 K/mm3 (0.84-5.20); LYMPHOCYTES PERCENT AUTO 5 % (21-46); MONOCYTES PERCENT AUTO 3 % (4-13); Mean Corpuscular HGB 33.6 pg (26.0-34.0); Mean Corpuscular HGB Conc 33.1 g/dL (31.5-36.5); Mean Corpuscular Volume 101 fL (80-100); Mean Platelet Volume 9.1 fL (9.1-12.4); NEUTROPHILS ABSOLUTE AUTO 13.32 K/mm3 (1.96-9.15); NEUTROPHILS PERCENT AUTO 88 % (41-73); Platelet Count 317 K/mm3 (150-400); RDW Coefficient Variation 15.6 % (11.7-14.2); RDW Standard Deviation 58.7 fL (35.1-46.3); Red Blood Cell Count 2.92 M/mm3 (4.30-5.90); White Blood Cell Count 15.13 K/mm3 (4.00-11.30)
[2018-10-08 15:36] LABS: Albumin, Blood 1.1 g/dL (3.4-5.0); Albumin/Globulin Ratio 0.4 (0.8-1.8); Bilirubin, Total 0.3 mg/dL (0.1-1.0); Bun/Creatinine Ratio 30.6 (12.0-20.0); Calcium, Blood 8.2 mg/dL (8.5-10.1); Creatinine, Blood 2.06 mg/dL (0.60-1.20); Potassium, Blood 4.9 mmol/L (3.5-5.5); Total Protein, Blood 4.1 g/dL (6.4-8.2)
[2019-01-02] MEDS ORDERED: POTA10T PO (12:15)
[2019-02-06] MEDS ORDERED: Bumetanide2 MG PO (15:28)
[2019-02-06] MEDS ORDERED: POTA10T PO (15:29)
== END 2018-10-08 17:00 | disposition home or self-care (01) ==
LOC: ER 14:45
PROVIDERS: Emergency Medicine
DX: N18.9 Chronic kidney disease, unspecified (principal); Z79.899 Other long term (current) drug therapy; Z91.013 Allergy to seafood; Z91.040 Latex allergy status; Z79.52 Long term (current) use of systemic steroids
CPT/HCPCS: 80053; 85025; 99285

== ENCOUNTER 2018-10-24 17:48 | Inpatient (IN) | payer OTHER ==
[~2018-10-24] VITALS: Ht 188 cm; Wt 112.8 kg
[2018-10-24] MEDS ORDERED: VITAMIN D350000 UNIT PO (18:19)
[2018-10-24] MEDS ORDERED: ZINC220 PO (18:20)
[2018-10-24] MEDS ORDERED: METO5 PO (18:21)
[2018-10-24] MEDS ORDERED: CLON.1 PO (18:22)
[2018-10-24] MEDS ORDERED: ESCI10 PO (18:22)
[2018-10-24] MEDS ORDERED: LIDO5TO TOP (18:23)
[2018-10-24] MEDS ORDERED: NIAC500ER PO (18:24)
[2018-10-24] MEDS ORDERED: METO25ER PO (18:24)
[2018-10-24 18:36] LABS: BASOPHILS ABSOLUTE AUTO 0.02 K/mm3 (0.00-0.23); BASOPHILS PERCENT AUTO 0 % (0-2); EOSINOPHILS ABSOLUTE AUTO 0.01 K/mm3 (0.00-0.68); EOSINOPHILS PERCENT AUTO 0 % (0-6); Hematocrit 25.2 % (37.0-53.0); Hemoglobin 8.2 g/dL (13.5-17.5); IMMATURE GRAN ABSOLUTE AUTO 0.48 K/mm3 (0.00-0.10); IMMATURE GRAN PERCENT AUTO 4 % (0-1); LYMPHOCYTES ABSOLUTE AUTO 0.63 K/mm3 (0.84-5.20); LYMPHOCYTES PERCENT AUTO 5 % (21-46); MONOCYTES ABSOLUTE AUTO 0.44 K/mm3 (0.16-1.47); MONOCYTES PERCENT AUTO 4 % (4-13); Mean Corpuscular HGB 32.7 pg (26.0-34.0); Mean Corpuscular HGB Conc 32.5 g/dL (31.5-36.5); Mean Corpuscular Volume 100 fL (80-100); Mean Platelet Volume 9.1 fL (9.1-12.4); NEUTROPHILS PERCENT AUTO 87 % (41-73); Platelet Count 294 K/mm3 (150-400); RDW Coefficient Variation 14.5 % (11.7-14.2); RDW Standard Deviation 53.1 fL (35.1-46.3); Red Blood Cell Count 2.51 M/mm3 (4.30-5.90); White Blood Cell Count 12.28 K/mm3 (4.00-11.30)
[2018-10-24 19:06] LABS: Magnesium, Blood 1.5 mg/dL (1.6-2.4); Phosphorus, Blood 5.6 mg/dL (2.5-4.9)
[2018-10-24 19:48] LABS: Alanine Aminotransfer (ALT/SGP 13 U/L (12-78); Albumin, Blood 0.7 g/dL (3.4-5.0); Albumin/Globulin Ratio 0.2 (0.8-1.8); Alk Phos 44 U/L (50-136); Anion Gap 8 mmol/L (6-16); Aspartate Aminotrans (AST/SGOT 13 U/L (12-37); Bilirubin, Total <0.1 mg/dL (0.1-1.0); Blood Urea Nitrogen 69 mg/dL (8-24); Bun/Creatinine Ratio 27.8 (12.0-20.0); CO2, Blood 21 mmol/L (21-32); Calcium, Blood 7.3 mg/dL (8.5-10.1); Chloride, Blood 106 mmol/L (98-108); Creatinine, Blood 2.48 mg/dL (0.60-1.20); Globulin, Blood 3.2 g/dL (2.2-4.0); Glomerular Filtration Rate 28 (60-); Glucose, Blood 138 mg/dL (70-99); Potassium, Blood 4.2 mmol/L (3.5-5.5); Sodium, Blood 135 mmol/L (136-145); Total Protein, Blood 3.9 g/dL (6.4-8.2)
[2018-10-24 21:29] LABS: Source, Urine Clean Catch
[2018-10-24 21:33] LABS: Bilirubin, Urine Neg (Neg); Blood, Urine 2+ (Neg); Glucose Qualitative, Urine 3+ (Neg); Ketones, Urine Neg (Neg); Leukocyte Esterase, Urine Neg (Neg); Nitrite, Urine Neg (Neg); Protein, Urine 4+ (Neg); Specific Gravity, Urine 1.015 (1.003-1.022); Urobilinogen, Urine NORM (Normal)
[2018-10-24 21:43] LABS: Appearance, Urine Clear (Clear); Color, Urine Yellow (P-Yellow)
[2018-10-24 21:44] LABS: Bacteria Rare /hpf; Squamous Epithelial Cells Rare /hpf (Few); White Blood Cells, Urine 0-2 /hpf (0-5)
[2018-10-24 21:45] LABS: Amorphous Light (0-Heavy)
[2018-10-25 05:54] LABS: Bun/Creatinine Ratio 28.9 (12.0-20.0); Calcium, Blood 7.3 mg/dL (8.5-10.1); Creatinine, Blood 2.46 mg/dL (0.60-1.20); Potassium, Blood 3.6 mmol/L (3.5-5.5)
--- NOTE | 2018-10-25 06:02 | NUR ---
SHIFT SUMMARY PATIENT IS ALERT AND ORIENTED. ARRIVED TO ROOM VIA STRETCHER FROM ER. ON ROOM AIR. USES URINAL INDEPENDENTLY. USES CALL LIGHT APPROPRIATELY. PATIENT HAD A SNACK SHORTLY AFTER ARRIVING TO ROOM. DID COMPLAIN OF PAIN IN BACK AND RIGHT SHOULDER. PT STATES HE HAS SHINGLES, HAS HAD TREATMENT FOR IT AND THE RASH IS SCABED OVER. RASH IS BARELY NOTICABLE AT THIS TIME. HOWEVER PT IS STILL HAVING NERVE PAIN. BOTH HANDS ARE VERY TREMOROUS WITH MOVEMENT. PT STATES THAT IT HAS BEEN GETTING WORSE, AND IT STARTED A COUPLE MONTHS AGO. HE THINKS IT IS RELATED TO A PREVIOUS HEAD INJURY BUT HAS NEVER BEEN DIAGNOSED OR TOLD WHY IT HAPPENS. PT STATES HE SLEPT OFF AND ON THROUGHOUT THE NIGHT. PATIENT IS NOTED TO HAVE SOME GENERALIZED SWELLING. DIURETIC ADMINISTERED ORDERED. PATIENT IS ON 1,000ML FLUID RESTRICTION PER DR. PORRAS. PATIENT IS AWARE OF THIS. VITALS STABLE. NO NEW CHANGES.
--- NOTE | 2018-10-25 17:39 | NUR ---
SHIFT SUMMARY: NO ACUTE CHANGES TO REPORT THIS SHIFT. PT A&O; CALM AND COOPERATIVE WITH CARE. MEDICATED FOR PAIN (SHINGLES) PER EMAR; NO ACTIVE SHINGLES. MEDICATED FOR NAUSEA X1. TELE IN PLACE; SB IN 50s. ACUTE RENAL FAILURE c MINIMAL CHANGE; DR PORRAS FOLLOWING; EDEMA T/O. FLUID RESTRICTION; 1000ML PER DAY. PATIENT INDEPENDENT IN ROOM. WCTM.
[2018-10-26 07:51] LABS: Hematocrit 29.4 % (37.0-53.0); Hemoglobin 9.6 g/dL (13.5-17.5); Mean Corpuscular HGB Conc 32.7 g/dL (31.5-36.5); Mean Corpuscular Volume 98 fL (80-100); Mean Platelet Volume 8.6 fL (9.1-12.4); Platelet Count 257 K/mm3 (150-400); RDW Coefficient Variation 14.5 % (11.7-14.2); RDW Standard Deviation 51.5 fL (35.1-46.3); White Blood Cell Count 11.49 K/mm3 (4.00-11.30)
[2018-10-26 08:15] LABS: Albumin, Blood 0.6 g/dL (3.4-5.0); Anion Gap 8 mmol/L (6-16); Blood Urea Nitrogen 60 mg/dL (8-24); Bun/Creatinine Ratio 26.9 (12.0-20.0); CO2, Blood 22 mmol/L (21-32); Calcium, Blood 7.5 mg/dL (8.5-10.1); Chloride, Blood 108 mmol/L (98-108); Creatinine, Blood 2.23 mg/dL (0.60-1.20); Glomerular Filtration Rate 32 (60-); Glucose, Blood 86 mg/dL (70-99); Phosphorus, Blood 4.6 mg/dL (2.5-4.9); Potassium, Blood 3.1 mmol/L (3.5-5.5); Sodium, Blood 138 mmol/L (136-145)
--- NOTE | 2018-10-26 17:53 | NUR ---
SHIFT SUMMARY: NO ACUTE CHANGES TO REPORT THIS SHIFT. PT A&O; CALM AND COOPERATIVE WITH CARE. HX SHINGLES; MEDICATED FOR PAIN PER EMAR. TELE IN PLACE; SR @ 86 PER NUT FORMER DURING MORNING ASSESSMENT. ACUTE RENAL FAILURE; DR PORRAS FOLLOWING. PT INDEPENDENT IN ROOM. WCTM.
[2018-10-26 22:30] LABS: Magnesium, Blood 1.3 mg/dL (1.6-2.4); Potassium, Blood 3.7 mmol/L (3.5-5.5)
--- NOTE | 2018-10-26 22:52 | NUR ---
DR Armenta in to see PT for nephrology consult. ordered labs and gave new med orders. Called lab result of and kt and DR Armenta RX 2 gm iv over 2 hours.
[2018-10-27 04:37] LABS: Hematocrit 27.8 % (37.0-53.0); Hemoglobin 9.2 g/dL (13.5-17.5)
[2018-10-27 04:52] LABS: Albumin, Blood 0.6 g/dL (3.4-5.0); Anion Gap 7 mmol/L (6-16); Blood Urea Nitrogen 61 mg/dL (8-24); CO2, Blood 25 mmol/L (21-32); Calcium, Blood 7.4 mg/dL (8.5-10.1); Chloride, Blood 107 mmol/L (98-108); Creatinine, Blood 2.35 mg/dL (0.60-1.20); Glomerular Filtration Rate 30 (60-); Glucose, Blood 90 mg/dL (70-99); Magnesium, Blood 1.7 mg/dL (1.6-2.4); Phosphorus, Blood 4.9 mg/dL (2.5-4.9); Potassium, Blood 3.4 mmol/L (3.5-5.5); Sodium, Blood 139 mmol/L (136-145)
--- NOTE | 2018-10-27 18:24 | NUR ---
SHIFT SUMMARY: NO ACUTE CHANGES TO REPORT THSI SHIFT. PT A&O; CALM AND COOPERATIVE WITH CARE. DR PORRAS CONSULING; IV DIURETICS INCREASED R/T PITTING EDEMA T/O. 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 PT INDEPENDENT IN ROOM. WCTM.
--- NOTE | 2018-10-27 19:04 | NUR ---
pt needs advance directive, hisgh risk for readmission. will review with car managment. will get [facility] records.
[2018-10-28 05:11] LABS: Hematocrit 29.6 % (37.0-53.0); Hemoglobin 9.7 g/dL (13.5-17.5)
[2018-10-28 05:55] LABS: Albumin, Blood 0.6 g/dL (3.4-5.0); Anion Gap 9 mmol/L (6-16); Blood Urea Nitrogen 57 mg/dL (8-24); Bun/Creatinine Ratio 25.1 (12.0-20.0); CO2, Blood 23 mmol/L (21-32); Chloride, Blood 105 mmol/L (98-108); Creatinine, Blood 2.27 mg/dL (0.60-1.20); Glomerular Filtration Rate 31 (60-); Glucose, Blood 93 mg/dL (70-99); Magnesium, Blood 1.6 mg/dL (1.6-2.4); Phosphorus, Blood 4.4 mg/dL (2.5-4.9); Potassium, Blood 3.4 mmol/L (3.5-5.5); Sodium, Blood 137 mmol/L (136-145)
--- NOTE | 2018-10-28 14:34 | NUR ---
TELEMETRY: PCU NOTIFIED RN THAT THE PATIENT MEETS THE REQUIREMENTS TO DISCONTINUE TELEMETRY. NOTIFIED DR. CASTRO. NEW ORDER TO DISCONTINUE TELEMETRY.
--- NOTE | 2018-10-28 16:51 | NUR ---
Palliative Spiritual Care inital visit: Mr. Cervantes was pleasant and dismissive. He was alone in room, appeared tired, and admitted he is worried he will have to start dialysis. He states he does not like being so physically weak. He is not mormonism, and declined needs. I will remain available.
--- NOTE | 2018-10-28 18:44 | NUR ---
END OF SHIFT SUMMARY: PATIENT RESTED IN BED THROUGHOUT THE DAY. WORKED WITH PT/OT. REFUSED TO GET UP TO CHAIR FOR THE REST OF THE DAY. UP TO BATHROOM TO VOID. PATIENT CONTINUES TO HAVE TREMORS WITH FINE MOTOR MOVEMENT. PATIENT MEDICATED MULTIPLE TIMES FOR NAUSEA AND PAIN. ABLE TO TOLERATE LUNCH AND DINNER SALAD. PATIENT TOLERATING IV DIURETICS WELL. DENIES DIZZINES OR LIGHTHEADEDNESS WHEN SITTING UP OR WITH AMBULATION. SOME SOB WITH AMBULATION THAT RESOLVES WITH REST.
--- NOTE | 2018-10-29 01:14 | NUR ---
PT. HAVING PERSISTANT NAUSEA AND VOMITING. PRN ZOFRAN ALREADY GIVEN THIS EVENING, TOO EARLY FOR NEXT DOSE. NOTIFED DR. COLES, RECEIVED ORDER TO GIVE AN EXTRA DOSE OF ZOFRAN NOW.
--- NOTE | 2018-10-29 04:08 | NUR ---
SHIFT SUMMARY- PT. SLEPT ON/OFF T/O THE SHIFT. HAVING PERSISTENT N/V. MEDICATED WITH PRN ZOFRAN PER EMAR AND WITH TRAMADOL FOR HIS CHRONIC BACK PAIN. RESTING COMFORTABLY IN BED, NO APPARENT DISTRESS NOTED. CALL LIGHT WITHIN REACH AND SIDE RAILS UP X2. WILL CONT TO MONITOR.
[2018-10-29 04:39] LABS: Hematocrit 28.2 % (37.0-53.0); Hemoglobin 9.3 g/dL (13.5-17.5)
[2018-10-29 05:04] LABS: Albumin, Blood 0.9 g/dL (3.4-5.0); Anion Gap 9 mmol/L (6-16); Blood Urea Nitrogen 55 mg/dL (8-24); Bun/Creatinine Ratio 21.9 (12.0-20.0); CO2, Blood 23 mmol/L (21-32); Calcium, Blood 8.3 mg/dL (8.5-10.1); Chloride, Blood 106 mmol/L (98-108); Creatinine, Blood 2.51 mg/dL (0.60-1.20); Glomerular Filtration Rate 28 (60-); Glucose, Blood 90 mg/dL (70-99); Magnesium, Blood 1.6 mg/dL (1.6-2.4); Phosphorus, Blood 4.2 mg/dL (2.5-4.9); Potassium, Blood 3.9 mmol/L (3.5-5.5); Sodium, Blood 138 mmol/L (136-145)
--- NOTE | 2018-10-29 18:45 | NUR ---
NO ACUTE CHANGES NOTED. NO CURRENT COMPLAINTS OF PAIN OR DISCOMFORT NOTED. WILL CONTINUE TO MONITOR FOR CHANGES.
--- NOTE | 2018-10-30 03:07 | NUR ---
SHIFT SUMMARY- NO ACUTE CHANGES OVERNIGHT. PT. CONTINUES TO HAVE GENERALIZED SWELLING. NO C/O NAUSEA T/O THE NIGHT. RESTING COMFORTABLY IN BED, NO APPARENT DISTRESS NOTED. CALL LIGHT WITHIN REACH AND SIDE RAILS UP X2. WILL CONT TO MONITOR.
[2018-10-30 04:34] LABS: Hematocrit 25.6 % (37.0-53.0); Hemoglobin 8.4 g/dL (13.5-17.5)
[2018-10-30 04:54] LABS: Albumin, Blood 1.1 g/dL (3.4-5.0); Anion Gap 8 mmol/L (6-16); Blood Urea Nitrogen 49 mg/dL (8-24); Bun/Creatinine Ratio 17.7 (12.0-20.0); CO2, Blood 24 mmol/L (21-32); Calcium, Blood 8.1 mg/dL (8.5-10.1); Chloride, Blood 108 mmol/L (98-108); Creatinine, Blood 2.77 mg/dL (0.60-1.20); Glomerular Filtration Rate 25 (60-); Glucose, Blood 94 mg/dL (70-99); Phosphorus, Blood 4.1 mg/dL (2.5-4.9); Potassium, Blood 3.5 mmol/L (3.5-5.5); Sodium, Blood 140 mmol/L (136-145)
--- NOTE | 2018-10-30 19:05 | NUR ---
PT. HAS SLEPT MOST OF THE DAY, REPORTED EMESIS BUT DID NOT SEE ANY EVIDENCE OF IT. SAME WITH BM, SAID HE HAD DIARRHEA, DID NOT SEE IT. PT. TAKEN OF BUMEX AND PLACED ON LASIX V.
--- NOTE | 2018-10-31 03:42 | NUR ---
SHIFT SUMMARY- BEGINNING OF SHIFT PT. C/O PAIN AND NA. PAIN AND NA MEDICATION GIVEN PER EMAR. PT. SLEPT THE REST OF THE NIGHT, NO APPARENT DISTRESS NOTED. CONTINUES TO HAVE GENERALIZED EDEMA. DENIES ANY NEEDS T/O THE NIGHT. CALL LIGHT WITHIN REACH AND SIDE RAILS UP X2. WILL CONT TO MONITOR.
[2018-10-31 05:06] LABS: Hematocrit 25.7 % (37.0-53.0); Hemoglobin 8.5 g/dL (13.5-17.5)
[2018-10-31 05:43] LABS: Albumin, Blood 1.3 g/dL (3.4-5.0); Anion Gap 9 mmol/L (6-16); Blood Urea Nitrogen 47 mg/dL (8-24); Bun/Creatinine Ratio 16.5 (12.0-20.0); CO2, Blood 25 mmol/L (21-32); Calcium, Blood 8.6 mg/dL (8.5-10.1); Chloride, Blood 105 mmol/L (98-108); Creatinine, Blood 2.84 mg/dL (0.60-1.20); Glomerular Filtration Rate 24 (60-); Glucose, Blood 100 mg/dL (70-99); Magnesium, Blood 1.6 mg/dL (1.6-2.4); Phosphorus, Blood 3.8 mg/dL (2.5-4.9); Potassium, Blood 3.3 mmol/L (3.5-5.5); Sodium, Blood 139 mmol/L (136-145)
--- NOTE | 2018-10-31 19:13 | NUR ---
PT. SLEPT MOST OF THE DAY , NO NOTEABLE CHANGES THIS SHIFT. ISSUES WITH PLACEMENT
[2018-11-01 04:45] LABS: Hematocrit 26.3 % (37.0-53.0); Hemoglobin 8.7 g/dL (13.5-17.5); Mean Corpuscular HGB 32.3 pg (26.0-34.0); Mean Corpuscular HGB Conc 33.1 g/dL (31.5-36.5); Mean Corpuscular Volume 98 fL (80-100); Mean Platelet Volume 8.6 fL (9.1-12.4); Platelet Count 230 K/mm3 (150-400); RDW Coefficient Variation 13.9 % (11.7-14.2); RDW Standard Deviation 49.3 fL (35.1-46.3); Red Blood Cell Count 2.69 M/mm3 (4.30-5.90); White Blood Cell Count 10.17 K/mm3 (4.00-11.30)
--- NOTE | 2018-11-01 05:03 | NUR ---
NOC SHIFT SUMMARY PT IS PLEASANT AND COOPERATIVE WITH CARE. HAS SLEPT MOST OF SHIFT. COMPLAINED OF PAIN ONCE, TREATED PER EMAR. CONTINUES TO HAVE A LARGE AMOUNT OF EDEMA THROUGHOUT BODY. NO ACUTE CHANGES NOTED THIS SHIFT. PT APPEARS IN NO ACUTE DISTRESS. WILL CONTINUE TO MONITOR.
[2018-11-01 05:04] LABS: Albumin, Blood 1.4 g/dL (3.4-5.0); Anion Gap 8 mmol/L (6-16); Blood Urea Nitrogen 44 mg/dL (8-24); Bun/Creatinine Ratio 15.6 (12.0-20.0); CO2, Blood 25 mmol/L (21-32); Calcium, Blood 8.7 mg/dL (8.5-10.1); Chloride, Blood 107 mmol/L (98-108); Creatinine, Blood 2.82 mg/dL (0.60-1.20); Glomerular Filtration Rate 24 (60-); Glucose, Blood 99 mg/dL (70-99); Magnesium, Blood 1.5 mg/dL (1.6-2.4); Phosphorus, Blood 3.4 mg/dL (2.5-4.9); Potassium, Blood 3.5 mmol/L (3.5-5.5); Sodium, Blood 140 mmol/L (136-145)
--- NOTE | 2018-11-01 18:34 | NUR ---
SHIFT SUMMARY OX4 INDEPENDENT IN ROOM. VOMITING X1 THIS A.M. HX OF SHINGLES C/O PAIN TO SITE. PAIN MEDS GIVEN THROUGHOUT DAY. NEW ORDER FOR SLEEP MED AVAILABLE. LASIX AND ALBUMIN INFUSIONS SCHEDULED. NOTED LEFT ARM SWELLING SLIGHTLY IMPROVED. PLAN TO TRANSFER TO [facility] OR HOME WITH HOME HEALTH.
--- NOTE | 2018-11-02 04:46 | NUR ---
SHIFT SUMMARY PT COOPERATIVE. MOOD IS FLAT, PT APPEARS DEPRESSED. PT REPORTS PAIN TO R BACK/RIBS FROM OLD EPISODE OF SHINGLES. MEDICATED X 1 W/ 50 MG ULTRAM. PT REPORTS NO CHANGE IN PAIN AFTER MEDICATED BUT FALLS ASLEEP SOON AFTER. PT HAS BASELINE TREMORS. HAS A DIFFICULT TIME BRINGING PILLS OR DRINK TO HIS MOUTH. REQUIRES SOME ASSISTANCE. PT DENIED ANY NAUSEA THIS EVENING. APPEARED TO SLEEP WELL AFTER TRAZADONE. EDEMA TO BLE'S. VITAL SIGNS STABLE. NO ACUTE CHANGES THIS SHIFT.
[2018-11-02 05:09] LABS: BASOPHILS ABSOLUTE AUTO 0.05 K/mm3 (0.00-0.23); BASOPHILS PERCENT AUTO 1 % (0-2); EOSINOPHILS PERCENT AUTO 3 % (0-6); Hematocrit 25.6 % (37.0-53.0); Hemoglobin 8.4 g/dL (13.5-17.5); IMMATURE GRAN ABSOLUTE AUTO 0.11 K/mm3 (0.00-0.10); IMMATURE GRAN PERCENT AUTO 1 % (0-1); LYMPHOCYTES ABSOLUTE AUTO 1.48 K/mm3 (0.84-5.20); LYMPHOCYTES PERCENT AUTO 16 % (21-46); MONOCYTES ABSOLUTE AUTO 0.92 K/mm3 (0.16-1.47); MONOCYTES PERCENT AUTO 10 % (4-13); Mean Corpuscular HGB 31.9 pg (26.0-34.0); Mean Corpuscular HGB Conc 32.8 g/dL (31.5-36.5); Mean Corpuscular Volume 97 fL (80-100); Mean Platelet Volume 8.6 fL (9.1-12.4); NEUTROPHILS ABSOLUTE AUTO 6.38 K/mm3 (1.96-9.15); NEUTROPHILS PERCENT AUTO 69 % (41-73); Platelet Count 217 K/mm3 (150-400); RDW Coefficient Variation 13.8 % (11.7-14.2); RDW Standard Deviation 48.9 fL (35.1-46.3); Red Blood Cell Count 2.63 M/mm3 (4.30-5.90); White Blood Cell Count 9.24 K/mm3 (4.00-11.30)
[2018-11-02 05:24] LABS: Albumin, Blood 1.4 g/dL (3.4-5.0); Anion Gap 7 mmol/L (6-16); Blood Urea Nitrogen 40 mg/dL (8-24); Bun/Creatinine Ratio 14.1 (12.0-20.0); CO2, Blood 25 mmol/L (21-32); Calcium, Blood 8.7 mg/dL (8.5-10.1); Chloride, Blood 107 mmol/L (98-108); Creatinine, Blood 2.83 mg/dL (0.60-1.20); Glomerular Filtration Rate 24 (60-); Glucose, Blood 89 mg/dL (70-99); Magnesium, Blood 1.6 mg/dL (1.6-2.4); Phosphorus, Blood 3.1 mg/dL (2.5-4.9); Potassium, Blood 3.6 mmol/L (3.5-5.5); Sodium, Blood 139 mmol/L (136-145)
--- NOTE | 2018-11-02 10:35 | NUR ---
HIS AFFECT IS FLAT. HE IS POLITE AND COOPERATIVE. HE HAS SIGNIFICANT ANASARCA. LASIX, ALBUMIN, ZAROXOLYN, AND SPIRONOLACTONE HAVE ALL BEEN GIVEN THIS MOIRNING. HE HAS ARM TREMORS IF THEY ARE NOT RESTING ON A SURFACE.THE PAIN THAT HE HAS IS THE RIGHT RIBCAGE AREA FROM FRONT TO BACK. HE DOES NOT WEAR HIS PAS MOST OF THE TIME. HE IS AWARE THAT THEY ARE TO HELP PREVENT BLOOD CLOTS WHILE HE IS HERE.
--- NOTE | 2018-11-02 13:37 | NUR ---
HE TRIES TO SLEEP WHENEVER WE ARE NOT GIVING CARE. 2ND DOSE OF LASIX/ALBUMIN ALMOST FINISHED. HE ATE 80% OF LUNCH. HE REFUSED THE LIDODERM PATCH. HE SAYS HE DOESN'T WANT TO EVEN TRY IT BECAUSE HIS SKIN IS TOO SENSITIVE. HE ALSO REFUSED TO TRY NORCO FOR PAIN BECAUSE HE DOESN'T WANT ANY TYLENOL IN HIS BODY.
--- NOTE | 2018-11-02 16:43 | NUR ---
HE HAS VOIDED 875 LIGHT YELLOW URINE THIS SHIFT. HE HAD 1 LOOSE BM. MEDICATED WITH TRAMADOL X1 FOR PAIN IN HIS R RIBCAGE AREA ALL THE WAY AROUND FROM FRONT TO THE BACK. THE BACK AREA HURTS THE MOST.WILL GIVE A 2ND ATARAX DOSE SOON PER HIS REQUEST. HE TAKES IT FOR MILD RESTLESSNESS.I.S. ONLY UP TO 500. HE DID NOT WANT THE NORCO OR THE LIDODERM ORDERED BY TODAY. SEE PREVIOUS NURSES NOTE REGARDING THIS. HE IS COMPLIANT WITH HIS FLUID RESTRICTION.
--- NOTE | 2018-11-03 04:44 | NUR ---
SHIFT SUMMARY PT REMAINS FLAT AND WITHDRAWN. BUT PLEASANT AND COOPERATIVE WITH CARE. AMBULATED INDEPENDENTLY TO THE RESTROOM, STEADY ON HIS FEET. PT CONTINUES TO BE EDEMATOUS THROUGHOUT BUT REPORTS HE BELIEVES IT HAS IMPROVED, EXCEPT FOR IN HIS FEET. PT APPEARED TO SLEEP A LITTLE BETTER THIS EVENING. PAIN REMAINED IN R RIB/BACK FROM OLD SHINGLES. MEDICATED X 1 WITH ULTRAM. PT CONTINUES TO REPORT IT IS NOT VERY EFFECTIVE BUT DOES NOT WANT THE LIDODERM PATCH OR THE NORCO'S. VITAL SIGNS STABLE. NO ACUTE CHANGES THIS SHIFT.
[2018-11-03 04:45] LABS: Hematocrit 26.2 % (37.0-53.0); Hemoglobin 8.5 g/dL (13.5-17.5); Mean Corpuscular HGB 31.4 pg (26.0-34.0); Mean Corpuscular HGB Conc 32.4 g/dL (31.5-36.5); Mean Corpuscular Volume 97 fL (80-100); Mean Platelet Volume 8.7 fL (9.1-12.4); Platelet Count 201 K/mm3 (150-400); RDW Coefficient Variation 13.9 % (11.7-14.2); RDW Standard Deviation 49.3 fL (35.1-46.3); Red Blood Cell Count 2.71 M/mm3 (4.30-5.90); White Blood Cell Count 9.09 K/mm3 (4.00-11.30)
[2018-11-03 07:05] LABS: Albumin, Blood 1.5 g/dL (3.4-5.0); Anion Gap 8 mmol/L (6-16); Blood Urea Nitrogen 37 mg/dL (8-24); Bun/Creatinine Ratio 12.9 (12.0-20.0); CO2, Blood 25 mmol/L (21-32); Calcium, Blood 8.9 mg/dL (8.5-10.1); Chloride, Blood 107 mmol/L (98-108); Creatinine, Blood 2.86 mg/dL (0.60-1.20); Glomerular Filtration Rate 24 (60-); Glucose, Blood 99 mg/dL (70-99); Magnesium, Blood 1.5 mg/dL (1.6-2.4); Phosphorus, Blood 3.2 mg/dL (2.5-4.9); Potassium, Blood 3.5 mmol/L (3.5-5.5); Sodium, Blood 140 mmol/L (136-145)
--- NOTE | 2018-11-03 11:09 | NUR ---
HIS AFFECT REMAINS FLAT. HE HAS BEEN SLEEPING EXCEPT FOR BREAKFAST. WAS HERE. LASIX CHANGED TO BUMEX. MGSO4 1GM INFUSING NOW OF MG LEVEL OF 1.5.
--- NOTE | 2018-11-03 15:08 | NUR ---
WHEN ASKED, HE GOT OOB, WALKED AROUND THE ROOM AND THEN SAT IN HIS RECLINER CHAIR. HE IS STILL IN IT. DIURESIS A LITTLE LESS I THINK THAN YESTERDAY AT THIS TIME. ANASARCA IS MOSTLY UNCHANGED FROM YESTERDAY. WEIGHT IS WELL UNDER ADMISSION WEIGHT THOUGH.
--- NOTE | 2018-11-03 16:14 | NUR ---
BACK IN BED ASLEEP ON HIS L SIDE.
--- NOTE | 2018-11-03 17:04 | NUR ---
HE HAS HAD ABOUT THE SAME U.O. THIS SHIFT YESTERDAY ON DAY SHIFT. HIS WGT IS LESS THAN ON ADMISSION. LASIX WAS CHANGED TO BUMEX TODAY. HE CONTINUES TO HAVE A FLAT AFFECT, SLEEPS A LOT AND HAS NO COMPLAINTS. NO BM TODAY. HE DID AMBULATE THE ROOM A LITTLE TODAY BUT SAID HE DID NOT WANT TO AMBULATE THE HALLS. FLUID RESTRICTION ONGOING.
--- NOTE | 2018-11-04 04:33 | NUR ---
SHIFT SUMMARY PT WITH FLAT AFFECT. APPEARS DEPRESSED. SPEAKS MINIMALLY. TRANSFERS IN THE ROOM INDEPENDENTLY AND IS STEADY ON HIS FEET BUT APPEARS TIRED AND GENERALLY ILL. EDEMA THROUGHOUT. NO LOOSE STOOL THIS EVENING. HAS DENIED NAUSEA THROUGHOUT THE NIGHT. PT CONTINUES TO REPORT PAIN TO R BACK/TRUNK AREA FROM OLD SHINGLES OUTBREAK. STILL DID NOT WANT TO USE THE LIDODERM PATCH OR THE NORCO. MEDICATED W/ ULTRAM NEEDED. PT'S TREMORS AT BASELINE. REMAINED ON RA, DENIES SOB. VSS. NO ACUTE CHANGES THIS SHIFT.
[2018-11-04 04:44] LABS: Hematocrit 26.8 % (37.0-53.0); Hemoglobin 8.8 g/dL (13.5-17.5)
[2018-11-04 04:59] LABS: Albumin, Blood 1.5 g/dL (3.4-5.0); Anion Gap 8 mmol/L (6-16); Blood Urea Nitrogen 30 mg/dL (8-24); Bun/Creatinine Ratio 10.7 (12.0-20.0); CO2, Blood 26 mmol/L (21-32); Calcium, Blood 8.4 mg/dL (8.5-10.1); Chloride, Blood 105 mmol/L (98-108); Glomerular Filtration Rate 24 (60-); Glucose, Blood 102 mg/dL (70-99); Magnesium, Blood 1.6 mg/dL (1.6-2.4); Phosphorus, Blood 3.1 mg/dL (2.5-4.9); Potassium, Blood 3.2 mmol/L (3.5-5.5); Sodium, Blood 139 mmol/L (136-145)
--- NOTE | 2018-11-04 18:38 | NUR ---
PT. BACK IN BED AFTER BEING UP IN CHAIR FOR DINNER. I HAVE HAD PT. UP IN CHAIR FOR LUNCH AND DINNER TODAY. LAYED DOWN WHILE HAVING BREAKFAST AND ENDED UP HAVING AN EMESIS. NO EMESIS AFTER BEING UP IN CHAIR FOR MEALS. PT. RQUESTING PAIN MEDS EVERY 4 HOURS FOR PAIN IN BACK. SAYS HIS PAIN IS 8/8 BEFORE AND AFTER PAIN MEDS. BEFORE AND AFTER PAIN MEDS PT'S COUNTENANCE INDICATES 0/0 PAIN.
--- NOTE | 2018-11-05 04:30 | NUR ---
SHIFT SUMMARY PT HAD NO COMPLAINTS OR ISSUES NOTED. PT HAS SLEPT T/O SHIFT. PT CURREMTLY SLEEPING IN NO DISTRESS. CALL LIGHT IN REACH.
[2018-11-05 05:01] LABS: Hematocrit 26.8 % (37.0-53.0); Hemoglobin 8.9 g/dL (13.5-17.5); Mean Corpuscular HGB 32.1 pg (26.0-34.0); Mean Corpuscular HGB Conc 33.2 g/dL (31.5-36.5); Mean Corpuscular Volume 97 fL (80-100); Mean Platelet Volume 8.5 fL (9.1-12.4); Platelet Count 212 K/mm3 (150-400); RDW Coefficient Variation 13.7 % (11.7-14.2); RDW Standard Deviation 48.5 fL (35.1-46.3); Red Blood Cell Count 2.77 M/mm3 (4.30-5.90); White Blood Cell Count 9.14 K/mm3 (4.00-11.30)
[2018-11-05 05:17] LABS: Albumin, Blood 1.6 g/dL (3.4-5.0); Anion Gap 6 mmol/L (6-16); Blood Urea Nitrogen 30 mg/dL (8-24); Bun/Creatinine Ratio 10.6 (12.0-20.0); CO2, Blood 26 mmol/L (21-32); Calcium, Blood 8.6 mg/dL (8.5-10.1); Chloride, Blood 106 mmol/L (98-108); Creatinine, Blood 2.82 mg/dL (0.60-1.20); Glomerular Filtration Rate 24 (60-); Glucose, Blood 96 mg/dL (70-99); Magnesium, Blood 1.5 mg/dL (1.6-2.4); Phosphorus, Blood 3.3 mg/dL (2.5-4.9); Potassium, Blood 3.4 mmol/L (3.5-5.5); Sodium, Blood 138 mmol/L (136-145)
[2018-11-06 04:32] LABS: Hemoglobin 9.5 g/dL (13.5-17.5); Mean Corpuscular HGB 31.3 pg (26.0-34.0); Mean Corpuscular HGB Conc 32.8 g/dL (31.5-36.5); Mean Corpuscular Volume 95 fL (80-100); Mean Platelet Volume 8.5 fL (9.1-12.4); Platelet Count 220 K/mm3 (150-400); RDW Coefficient Variation 13.8 % (11.7-14.2); RDW Standard Deviation 48.5 fL (35.1-46.3); Red Blood Cell Count 3.04 M/mm3 (4.30-5.90); White Blood Cell Count 10.15 K/mm3 (4.00-11.30)
[2018-11-06 04:58] LABS: Albumin, Blood 1.3 g/dL (3.4-5.0); Anion Gap 8 mmol/L (6-16); Blood Urea Nitrogen 30 mg/dL (8-24); Bun/Creatinine Ratio 10.6 (12.0-20.0); CO2, Blood 25 mmol/L (21-32); Calcium, Blood 8.4 mg/dL (8.5-10.1); Chloride, Blood 105 mmol/L (98-108); Creatinine, Blood 2.82 mg/dL (0.60-1.20); Glomerular Filtration Rate 24 (60-); Glucose, Blood 101 mg/dL (70-99); Magnesium, Blood 1.6 mg/dL (1.6-2.4); Phosphorus, Blood 3.1 mg/dL (2.5-4.9); Potassium, Blood 3.6 mmol/L (3.5-5.5); Sodium, Blood 138 mmol/L (136-145)
--- NOTE | 2018-11-06 07:24 | NUR ---
still edemenous, no further requests for pain medication, medicated as prescribed, no major medical changes noted, calll light in reach, saline locked, room air, report provided to returning day staff
--- NOTE | 2018-11-06 13:17 | NUR ---
Pt visit this afternoon. Pt is resting in bed with his eyes close upon arrival. He opens his eyes with verbal stimuli. Pt reports 8/10 pain, mild anxiety, and moderate nausea. Pt very withdrawn and does not respond verbally much. Answers in 1 to 2 word sentences and appears unwilling to engage in conversation. Spoke with bedside nurse Karla and she reports reveiving hospitalist orders to place consult with Dr Jacome. Palliative Care will remain available.
--- NOTE | 2018-11-06 13:26 | NUR ---
Late Entry from previous visit. Discussed potential benefit of music therapy for Pt with Ben and he will approach possibility tomorow. Talked with Pt after discussion with Ben and Pt expresses appreciation but denies need. Pt states "quiteness is best for me".
--- NOTE | 2018-11-06 17:13 | NUR ---
[facility] note: Mr. Cervantes was curled up in bed, sleeping. He awakens easily to voice. He is soft-spoken and appears emotionally withdrawn. He told me he does not beleive he will get any better. When asked if he felt sorrowful, he admitted he did. Then, he became quiet, and told me "I just want to sleep." I will remain available.
--- NOTE | 2018-11-06 18:16 | NUR ---
PT. BACK LAYING DOWN AFTER SITTING ON EDGE OF BED FOR DINNER. THERE HAS NOT BEEN ANY CHANGE IN PT. TODAY. STILL JUST WANTS TO LAY IN BED ALL DAY. ROSINA VICENTE SPIRITUAL WORKER IN TO SEE PT. PT'S EDEMA APPEARS TO BE GETTING WORSE EVEN IN THE FACE OF DIURETICS 3X DAY. ENCOURAGED OOB AND AMBULATION PT REFUSED SAYING I'M TIRED OR I DON'T FEEL GOOD. PT. TRIED TOGET PT. TO GO AMBULATING IN [place] APPEARED AFRAID TO GO OUT OF ROOM AND REFUSED. PT. USING BEING NAUSEATED A MEANS NOT TO WORK WITH PT/OT. PREMEDICATED HIM BEFORE WORKING WITH OT. AGREED TO GO IN THE BATHROOM TO BRUSH HIS TEETH AND SHAVE, COMPLAINING OF NAUSEA, OT RELATED HE STARTED GAGGING WHILE BRUSHING TEETH THEN HAD LARGE EMESIS IN SINK, HIGHLY SUSPECT HE GAGGED HIM SELF WITH THE TOOTH BRUSH, NO EMESIS THIS REST OF THE DAY. PLACEMENT IS STILL AN ISSUE AT THIS TIME. DR. SAGE CONSULTED, HAS NOT SEEN PT. YET.
[2018-11-07 04:39] LABS: Hematocrit 30.1 % (37.0-53.0); Hemoglobin 9.8 g/dL (13.5-17.5); Mean Corpuscular HGB 31.4 pg (26.0-34.0); Mean Corpuscular HGB Conc 32.6 g/dL (31.5-36.5); Mean Corpuscular Volume 97 fL (80-100); Mean Platelet Volume 8.6 fL (9.1-12.4); Platelet Count 219 K/mm3 (150-400); RDW Coefficient Variation 14.2 % (11.7-14.2); Red Blood Cell Count 3.12 M/mm3 (4.30-5.90); White Blood Cell Count 8.72 K/mm3 (4.00-11.30)
[2018-11-07 04:56] LABS: Albumin, Blood 1.2 g/dL (3.4-5.0); Anion Gap 7 mmol/L (6-16); Blood Urea Nitrogen 31 mg/dL (8-24); CO2, Blood 27 mmol/L (21-32); Calcium, Blood 8.1 mg/dL (8.5-10.1); Chloride, Blood 104 mmol/L (98-108); Creatinine, Blood 2.81 mg/dL (0.60-1.20); Glomerular Filtration Rate 24 (60-); Glucose, Blood 101 mg/dL (70-99); Magnesium, Blood 1.5 mg/dL (1.6-2.4); Phosphorus, Blood 3.2 mg/dL (2.5-4.9); Potassium, Blood 3.7 mmol/L (3.5-5.5); Sodium, Blood 138 mmol/L (136-145)
--- NOTE | 2018-11-07 06:13 | NUR ---
SHIFT SUMMARY PT HAS GENERALIZED EDEMA T/O, 2+ PITTING EDEMA TO BLE. PT IS A&O X 4, FLAT WITHDRAWN AFFECT. BUE TREMORS. LS CLEAR, ON RA. PT IS INDEPENDENT IN RM BUT HAS VERY LITTLE MOTIVATION FOR MOVEMENT. 1L FR MAINTAINED. TREATED 1X FOR PAIN c TRAMADOL, SEE EMARDorian SAGE CONSULTED 11/06, PT IN NEED OF PLACEMENT. NO OTHER CHANGES TO REPORT, WILL CONT TO MONITOR AND PROVIDE CARE UNTIL PRESUMED BY ONCOMING RN.
--- NOTE | 2018-11-07 15:18 | NUR ---
SUMMARY PT IS A/O X4, COOPERATIVE, FLAT AFFECT, APPEARS DEPRESSED. HE DOES NOT VOLUNTEER CONVERSATION, BRIEFLY ANSWERS QUESTIONS. SOMEWHAT PALE. DX ARF, HX NEPHROTIC SYNDROME. DR PORRAS MANAGING, IN TO SEE HIM THIS AM. IV DIURETICS CONTINUE. PT VOIDS SM AMTS, 50-125 ML @ A TIME. FL REST 1L/DAY CONTINUES, PT IS COMPLIANT. HE STATE CONTINUING CHR BACK PAIN & R SIDE PAIN, PRN TRAMADOL GIVEN FOR RELIEF. HE ALSO STATES ANXIETY, PRN ATARAX FOR RELIEF/CONTROL. BUE & BLE CONTINUE EDEMATOUS, 2+ ARMS, 3+ LEGS. THIS AM HAD NAUSEA W SM AMT EMESIS, PRN ZOFRAN GIVEN FOR RELIEF. POOR APPETITE TODAY. VSS.
[2018-11-08 05:27] LABS: Hematocrit 30.1 % (37.0-53.0); Hemoglobin 9.7 g/dL (13.5-17.5)
[2018-11-08 05:50] LABS: Anion Gap 6 mmol/L (6-16); Blood Urea Nitrogen 30 mg/dL (8-24); Bun/Creatinine Ratio 10.7 (12.0-20.0); CO2, Blood 26 mmol/L (21-32); Calcium, Blood 8.2 mg/dL (8.5-10.1); Chloride, Blood 106 mmol/L (98-108); Glomerular Filtration Rate 24 (60-); Glucose, Blood 100 mg/dL (70-99); Magnesium, Blood 1.7 mg/dL (1.6-2.4); Phosphorus, Blood 2.9 mg/dL (2.5-4.9); Potassium, Blood 3.7 mmol/L (3.5-5.5); Sodium, Blood 138 mmol/L (136-145)
--- NOTE | 2018-11-08 06:04 | NUR ---
SHIFT SUMMARY PT IN BETTER SPIRITS THAN HE HAS BEEN THE LAST FEW NIGHTS. PT REPORTS NOT HAVING ANY FAMILY OR FRIENDS, AND NOT FEELING SAFE TO DC HOME ALONE. EXPLAINED TO STAFF THAT THE CARE TEAM IS WORKING ON A SELF DC PLAN FOR HIM. PT IS WAS HAPPY TO HEAR THIS. STRICT I/Os, DAILY WTs, AND 1 L FR MAINTAINED TONIGHT. 3+ PITTING EDEMA TO BLE, 1+ GENERALIZED EDEMA. PT STILL HAS FLAT AFFECT BUT IS SEEMING LESS WITHDRAWN BY ENGAGING IN CONVERSATIONS AND ASKING QUESTIONS ABOUT CARE. NO OTHER CHANGES TO REPORT. WILL CONT TO MONITOR AND PROVIDE CARE UNTIL PRESUMED BY ONCOMING RN.
--- NOTE | 2018-11-08 15:52 | NUR ---
SUMMARY PT IS A/O X4, STATE CONTINUING FATIGUE/WEAKNESS. HE IS ABLE TO AMBULATE IND TO BR HOWEVER STATE NO ENERGY OR DESIRE TO GET OOB, UP TO CHAIR FOR MEALS. HE DECLINE SHOWER AGAIN TODAY, DECLINE BEDBATH. HEAT AND FROST INSULATOR WAS ABLE TO GET HIM TO WASH HIS FACE. DX ARF, HX NEPHROTIC SYNDR. GFR 24, ALB 1.0, IV DIURETICS & FL REST CONTINUE. BLE & BUE CONTINE EDEMATOUS. IV SITE FAIL TODAY, NEW POWERGLIDE IV PLACED NEIDA. HE STATE CONTINUING INTERMITTANT NAUSEA, PRN ZOFRAN FOR RELIEF. PRN ULTRAM FOR CHR BACK PAIN. LODGING HOUSE KEEPER DEMOND STATE WORKING ON TRANSFER TO ID SNF WHEN APPROP. VSS
[2018-11-09 04:31] LABS: BASOPHILS ABSOLUTE AUTO 0.05 K/mm3 (0.00-0.23); BASOPHILS PERCENT AUTO 1 % (0-2); EOSINOPHILS ABSOLUTE AUTO 0.34 K/mm3 (0.00-0.68); EOSINOPHILS PERCENT AUTO 4 % (0-6); Hemoglobin 9.1 g/dL (13.5-17.5); IMMATURE GRAN ABSOLUTE AUTO 0.12 K/mm3 (0.00-0.10); IMMATURE GRAN PERCENT AUTO 1 % (0-1); LYMPHOCYTES ABSOLUTE AUTO 1.46 K/mm3 (0.84-5.20); LYMPHOCYTES PERCENT AUTO 17 % (21-46); MONOCYTES ABSOLUTE AUTO 0.95 K/mm3 (0.16-1.47); MONOCYTES PERCENT AUTO 11 % (4-13); Mean Corpuscular HGB 31.8 pg (26.0-34.0); Mean Corpuscular HGB Conc 32.5 g/dL (31.5-36.5); Mean Corpuscular Volume 98 fL (80-100); Mean Platelet Volume 8.4 fL (9.1-12.4); NEUTROPHILS ABSOLUTE AUTO 5.54 K/mm3 (1.96-9.15); NEUTROPHILS PERCENT AUTO 66 % (41-73); Platelet Count 223 K/mm3 (150-400); RDW Coefficient Variation 13.8 % (11.7-14.2); RDW Standard Deviation 48.9 fL (35.1-46.3); Red Blood Cell Count 2.86 M/mm3 (4.30-5.90); White Blood Cell Count 8.46 K/mm3 (4.00-11.30)
[2018-11-09 04:48] LABS: Anion Gap 6 mmol/L (6-16); Blood Urea Nitrogen 32 mg/dL (8-24); Bun/Creatinine Ratio 10.7 (12.0-20.0); CO2, Blood 27 mmol/L (21-32); Calcium, Blood 7.9 mg/dL (8.5-10.1); Chloride, Blood 106 mmol/L (98-108); Creatinine, Blood 2.99 mg/dL (0.60-1.20); Glomerular Filtration Rate 23 (60-); Glucose, Blood 104 mg/dL (70-99); Magnesium, Blood 1.6 mg/dL (1.6-2.4); Phosphorus, Blood 2.9 mg/dL (2.5-4.9); Potassium, Blood 3.7 mmol/L (3.5-5.5); Sodium, Blood 139 mmol/L (136-145)
--- NOTE | 2018-11-09 05:57 | NUR ---
SHIFT SUMMARY NO ACUTE CHANGES TONIGHT. PT REMAINS STRICT I/O's, DAILY WEIGHTS, 1L FR MAINTAINED. PT HAS VERY LOW URINARY OUTPUT, ABOUT 400 ML TONIGHT. PT IS A&O X 4, FLAT WITHDRAWN AFFECT. PT REPORTS VERY LOW ENERGY AND MOTIVATION FOR SELF CARE AND EXERCISE. RESP E/U ON RA, DENIES SOB. TREATED 1X FOR ANXIETY c PRN ATARAX, SEE EMAR. ADMINISTERED PRN TRAMADOL AND PRN TRAZADONE WELL PER PT REQUEST. LABS DRAWN FROM NEIDA POWERGLIDE, CAPS CHANGED. NO OTHER CHANGES TO REPORT. WILL CONT TO MONITOR AND PROVIDE CARE UNTIL PRESUMED BY ONCOMING RN.
--- NOTE | 2018-11-09 15:38 | NUR ---
SHIFT SUMMARY PT AWAKE DURING SHIFT REPORT. DENIED NEEDS. ADMITTED FOR ARF D/T NEPHROTIC SYNDROME, DR PORRAS FOLLOWING PT. RECEIVING BUMEX TID WITH MINIMAL URINE OUTPUT. PT VERY EDEMATOUS, ESPECIALLY BLE'S. WEAK AND FATIGUED, DOES NOT WANT TO WORK WITH P/T. C/O NAUSEA AND PAIN DURING SHIFT REPORT, MEDICATED PER EMAR. BUE TREMORS MAKING IT DIFFICULT TO HOLD ONTO ANYTHING WITHOUT SPILLING IT OR DROPPING IT. PER REPORT, PT IS INDEPENDENT IN , BUT HAS REMAINED IN BED ALL DAY. PT REPORTS NAUSEA WHEN UP MOVING AROUND. REPORTED CHRONIC BACK PAIN FROM HX OF SHINGLES. PT WAITING PLACEMENT AT [place] WHEN BED AVAILABLE. CALL LT IN REACH.
[2018-11-10 05:06] LABS: Albumin, Blood 0.9 g/dL (3.4-5.0); Anion Gap 7 mmol/L (6-16); Blood Urea Nitrogen 32 mg/dL (8-24); Bun/Creatinine Ratio 10.6 (12.0-20.0); CO2, Blood 24 mmol/L (21-32); Calcium, Blood 7.4 mg/dL (8.5-10.1); Chloride, Blood 109 mmol/L (98-108); Creatinine, Blood 3.03 mg/dL (0.60-1.20); Glomerular Filtration Rate 22 (60-); Glucose, Blood 139 mg/dL (70-99); Magnesium, Blood 1.6 mg/dL (1.6-2.4); Potassium, Blood 4.1 mmol/L (3.5-5.5); Sodium, Blood 140 mmol/L (136-145)
[2018-11-10 06:13] LABS: Hematocrit 27.9 % (37.0-53.0); Hemoglobin 9.3 g/dL (13.5-17.5); Mean Corpuscular HGB 32.4 pg (26.0-34.0); Mean Corpuscular HGB Conc 33.3 g/dL (31.5-36.5); Mean Corpuscular Volume 97 fL (80-100); Mean Platelet Volume 8.4 fL (9.1-12.4); Platelet Count 243 K/mm3 (150-400); RDW Coefficient Variation 13.6 % (11.7-14.2); Red Blood Cell Count 2.87 M/mm3 (4.30-5.90); White Blood Cell Count 7.99 K/mm3 (4.00-11.30)
--- NOTE | 2018-11-10 06:24 | NUR ---
SHIFT SUMMARY NO ACUTE CHANGES TONIGHT. PT IS A&O X 4, PLEASANT BUT FLAT AND WITHDRAWN. TREATED FOR PAIN, ANXIETY, AND SLEEPING AID WITH SCHEDULED NIGHT TIME MEDS, SEE EMAR. TREATED FOR NAUSEA c IV ZOFRAN THIS AM; PROVIDES RELIEF. PT IS AWAITING BED AVAILIBILITY AT [facility]. WILL CONT TO MONITOR AND PROVIDE CARE UNTIL PRESUMED BY ONCOMING RN.
--- NOTE | 2018-11-10 13:20 | NUR ---
SHIFT SUMMARY NO ACUTE CHANGES TO PRESENT THIS SHIFT. PT HAS BEEN PLEASANT, BUT JUST LAYS IN BED SLEEPING WHEN STAFF NOT IN RM. RESPONDS APPROPRIATELY FOR CARE. HAS EATEN ALL MEALS. COMPLIANT WITH 1L FR. STILL VOIDS VERY LITTLE IN COMPARISON TO AMOUNT OF BUMEX GIVEN. BODY WIDE ANASARCA, ESPECIALLY TO BLE'S. SKIN VERY PALE. LESS C/O PAIN AND NAUSEA TODAY. MEDICATED PER EMAR AND PT REQUEST EARLY THIS AM. NEW ORDERS FROM DR PORRAS TODAY; MEDICATIONS ADJUSTED. INDEPENDENT IN RM IF NEEDED. CALL LT IN REACH.
--- NOTE | 2018-11-11 02:33 | NUR ---
SHIFT SUMMARY- NO ACUTE CHANGES OVERNIGHT. PAIN MEDICATION GIVEN AT START OF SHIFT PER EMAR, TOLERATED WELL. PT. RESTING COMFORTABLY IN BED T/O THE NIGHT, NO APPARENT DISTRESS NOTED. POWERGLIDE TO NEIDA SITE WNL. CALL LIGHT WITHIN REACH AND SIDE RAILS UP X2. WILL CONT TO MONITOR.
[2018-11-11 05:01] LABS: Hematocrit 29.2 % (37.0-53.0); Hemoglobin 9.3 g/dL (13.5-17.5)
[2018-11-11 05:15] LABS: Albumin, Blood 0.9 g/dL (3.4-5.0); Anion Gap 7 mmol/L (6-16); Blood Urea Nitrogen 35 mg/dL (8-24); Bun/Creatinine Ratio 10.5 (12.0-20.0); CO2, Blood 26 mmol/L (21-32); Calcium, Blood 7.8 mg/dL (8.5-10.1); Chloride, Blood 106 mmol/L (98-108); Creatinine, Blood 3.34 mg/dL (0.60-1.20); Glomerular Filtration Rate 20 (60-); Glucose, Blood 99 mg/dL (70-99); Magnesium, Blood 1.6 mg/dL (1.6-2.4); Phosphorus, Blood 2.6 mg/dL (2.5-4.9); Potassium, Blood 4.1 mmol/L (3.5-5.5); Sodium, Blood 139 mmol/L (136-145)
--- NOTE | 2018-11-11 18:38 | NUR ---
SHIFT SUMMARY TIERNEY WAS WITHDRAWN TODAY ,BUT FULLY ALERT AND ORIENTED. RECEIVED PO PAIN MEDS X2 THIS SHIFT TO GOOD EFFECT FOR HIS BACK PAIN. DOING WELL WITH 1L FR. REFUSED PT AND OT. SOME NAUSEA WITH MOVEMENT, GAVE ANTIEMETIC X1. BUE TREMORS, ASSISTED WITH PILLS. USED URINAL FOR OUTPUT APPROPRIATELY. CALL LIGHT IN REACH, [facility]
--- NOTE | 2018-11-12 03:53 | NUR ---
SHIFT SUMMARY- PT. ASLEEP T/O MOST OF THE SHIFT. DENIES ANY PAIN OR DISCOMFORT AT THIS TIME. HAS HAD URINE OUTPUT OF 500ML T/O THE NIGHT AND COMPLIANT WITH FLUID RESTRICTION. SWELLING IS STILL GENERALIZED. NO APPARENT DISTRESS NOTED. CALL LIGHT WITHIN REACH AND SIDE RAILS UP X2. WILL CONT TO MONITOR.
[2018-11-12 05:41] LABS: Hematocrit 31.7 % (37.0-53.0); Hemoglobin 10.2 g/dL (13.5-17.5)
[2018-11-12 06:02] LABS: Albumin, Blood 0.9 g/dL (3.4-5.0); Anion Gap 7 mmol/L (6-16); Blood Urea Nitrogen 37 mg/dL (8-24); Bun/Creatinine Ratio 11.6 (12.0-20.0); CO2, Blood 23 mmol/L (21-32); Calcium, Blood 7.8 mg/dL (8.5-10.1); Chloride, Blood 107 mmol/L (98-108); Creatinine, Blood 3.19 mg/dL (0.60-1.20); Glomerular Filtration Rate 21 (60-); Glucose, Blood 90 mg/dL (70-99); Magnesium, Blood 1.6 mg/dL (1.6-2.4); Phosphorus, Blood 2.8 mg/dL (2.5-4.9); Sodium, Blood 137 mmol/L (136-145)
--- NOTE | 2018-11-12 15:02 | NUR ---
Echocardiogram completed.
--- NOTE | 2018-11-12 18:27 | NUR ---
SHIFT SUMMARY TRAN RECEIVED TRAMADOL X1 THIS SHIFT FOR BACK PAIN DUE TO SHINGLES. PT GOT UP TO HAVE A BM, AND REQUESTED LUBRICANT AND GLOVES FOR SELF-DISEMPACTION. STONGLY DECLINED ASSISTANCE WITH THIS. AFTER THIS ACCOMPLISHED A BM, PT UNABLE TO GET BACK TO BED DUE TO DIZZINESS. FELT LIKE HE WAS GOING TO PASS OUT. SBP 106, HR 115. BACK TO BED, ORTHOSTATICS SHOWED DROP OF 20 SYSTOLIC FROM LAYING TO SITTING, UNABLE TO OBTAIN STANDING, PT UNABLE TO STAND WITHOUT FEELING LIKE HE WAS GOING TO PASS OUT. CALLED DR CASTRO AND DR PORRAS. DR PORRAS ORDERED MIDODRINE, COMPRESSION STOCKINGS, AND CHANGED PARAMETERS OF BP MEDS. PT KNOWS TO CALL BEFORE GETTING UP, BA ON. FOLLOWING 1L FR. CALL LIGHT IN REACH, WCTM
--- NOTE | 2018-11-13 03:29 | NUR ---
SHIFT SUMMARY- NO ACUTE CHANGES OVERNIGHT. PT. ASLEEP IN BED T/O THE SHIFT, NO APPARENT DISTRESS NOTED. NO C/O PAIN OR DISCOMFORT. [facility] CALL LIGHT WITHIN REACH AND SIDE RAILS UP X2. WILL CONT TO MONITOR.
[2018-11-13 04:32] LABS: Hematocrit 31.2 % (37.0-53.0); Hemoglobin 10.2 g/dL (13.5-17.5)
[2018-11-13 04:49] LABS: Anion Gap 7 mmol/L (6-16); Blood Urea Nitrogen 40 mg/dL (8-24); Bun/Creatinine Ratio 11.6 (12.0-20.0); CO2, Blood 24 mmol/L (21-32); Calcium, Blood 7.8 mg/dL (8.5-10.1); Chloride, Blood 107 mmol/L (98-108); Creatinine, Blood 3.44 mg/dL (0.60-1.20); Glomerular Filtration Rate 19 (60-); Glucose, Blood 102 mg/dL (70-99); Magnesium, Blood 1.6 mg/dL (1.6-2.4); Phosphorus, Blood 2.8 mg/dL (2.5-4.9); Potassium, Blood 3.8 mmol/L (3.5-5.5); Sodium, Blood 138 mmol/L (136-145)
--- NOTE | 2018-11-13 19:36 | NUR ---
SHIFT SUMMARY- PT C/O MILD BACK PAIN THIS AM. PT DENIES SOB. RESP E/U ON RA. N/V THIS AFTERNOON. MEDS GIVEN PER EMAR. PT REPORTS ANXIETY. MEDS GIVEN PER EMAR. PT SLEEPING ON/OFF T/O SHIFT. SBA TO THE BATHROOM. NO OTHER SIGNIFICANT CHANGES THIS SHIFT.
[2018-11-14 06:02] LABS: Hematocrit 29.1 % (37.0-53.0); Hemoglobin 9.5 g/dL (13.5-17.5)
[2018-11-14 06:21] LABS: Albumin, Blood 0.9 g/dL (3.4-5.0); Anion Gap 8 mmol/L (6-16); Blood Urea Nitrogen 38 mg/dL (8-24); Bun/Creatinine Ratio 11.4 (12.0-20.0); CO2, Blood 24 mmol/L (21-32); Calcium, Blood 7.8 mg/dL (8.5-10.1); Chloride, Blood 107 mmol/L (98-108); Creatinine, Blood 3.34 mg/dL (0.60-1.20); Glomerular Filtration Rate 20 (60-); Glucose, Blood 95 mg/dL (70-99); Magnesium, Blood 1.6 mg/dL (1.6-2.4); Phosphorus, Blood 2.9 mg/dL (2.5-4.9); Potassium, Blood 3.6 mmol/L (3.5-5.5); Sodium, Blood 139 mmol/L (136-145)
--- NOTE | 2018-11-14 07:40 | NUR ---
NOC SHIFT SUMMARY PT PLEASANT AND COOPERATIVE WITH CARE. SLEPT MOST OF NIGHT. TREATED FOR NAUSEA PER EMAR. VSS. NO ACUTE CHANGES. AWAITING PLACEMENT. FLUID RESTRICTION OF 1000ML IN PLACE. REPORT TO ON COMING RN.
--- NOTE | 2018-11-14 18:51 | NUR ---
SHIFT SUMMARY- PT C/O BACK PAIN AND NAUSEA THIS AM. MEDS GIVEN PER EMAR. NOTIFIED DR. CASTRO PT'S HR [address] CASTRO SAID TO ORDER ONE TIME DOSE OF 12.5 MG PO METOPROLOL AND AN EKG. MEDS GIVEN PER EMAR. PT'S HR 80 AFTER MEDS. PHYSICAL THERAPY IN TO WORK WITH PT TODAY. NO OTHER SIGNIFICANT CHANGES THIS SHIFT.
[2018-11-15 05:03] LABS: Hematocrit 30.5 % (37.0-53.0); Hemoglobin 9.7 g/dL (13.5-17.5)
[2018-11-15 05:18] LABS: Albumin, Blood 0.9 g/dL (3.4-5.0); Anion Gap 8 mmol/L (6-16); Blood Urea Nitrogen 38 mg/dL (8-24); CO2, Blood 24 mmol/L (21-32); Calcium, Blood 7.7 mg/dL (8.5-10.1); Chloride, Blood 108 mmol/L (98-108); Creatinine, Blood 3.17 mg/dL (0.60-1.20); Glomerular Filtration Rate 21 (60-); Glucose, Blood 89 mg/dL (70-99); Magnesium, Blood 1.6 mg/dL (1.6-2.4); Phosphorus, Blood 2.9 mg/dL (2.5-4.9); Potassium, Blood 3.6 mmol/L (3.5-5.5); Sodium, Blood 140 mmol/L (136-145)
--- NOTE | 2018-11-15 07:42 | NUR ---
NOC SHIFT SUMMARY PT PLEASANT AND COOPERATIVE WITH CARE. MOSTLY SLEPT THIS NIGHT. HE IS ON A 1000 ML FLUID RESTRICTION AND IS BEING DIURESED. PAIN AND NAUSEA TREATED PER EMAR. NO ACUTE CHANGES NOTED THIS SHIFT. VSS. APPEARS IN NO ACUTE DISTRESS. REPORT TO ONCOMING RN.
--- NOTE | 2018-11-15 18:51 | NUR ---
SHIFT SUMMARY PATIENT IS DEPRESSED BUT DEALING WELL. NO ACUTE CONCERNS AT THIS TIME.
--- NOTE | 2018-11-16 03:07 | NUR ---
Shift summary: Pt has done well overnight. Pt was given tramadol at 1800 with adequate relief for shingles type pain. Pt remain on fluid restriction and is compliant. Pt's power line flusing well. labs drawn from power line ok.
[2018-11-16 04:32] LABS: Hematocrit 30.6 % (37.0-53.0); Hemoglobin 9.8 g/dL (13.5-17.5)
[2018-11-16 04:55] LABS: Albumin, Blood 0.9 g/dL (3.4-5.0); Anion Gap 7 mmol/L (6-16); Blood Urea Nitrogen 37 mg/dL (8-24); Bun/Creatinine Ratio 11.1 (12.0-20.0); CO2, Blood 24 mmol/L (21-32); Calcium, Blood 7.8 mg/dL (8.5-10.1); Chloride, Blood 108 mmol/L (98-108); Creatinine, Blood 3.33 mg/dL (0.60-1.20); Glomerular Filtration Rate 20 (60-); Glucose, Blood 95 mg/dL (70-99); Magnesium, Blood 1.6 mg/dL (1.6-2.4); Sodium, Blood 139 mmol/L (136-145)
--- NOTE | 2018-11-16 17:57 | NUR ---
SHIFT SUMMARY NO ACUTE CONCERNS AT THIS TIME.STILL MANAGING PATIENT'S PAIN AND HIS NAUSEA. CURRENTLY HE IS WORKING ON SOME SOUP FOR DINNER AND HAS TAKEN HIS MEDICATOIN FOR THIS EVENING. HE IS DEFINITELY MORE WITHDRAWN TODAY AND HAS A NEW PSYCH CONSULT FOR SUNDAY WITH DR. CARRILLO.
--- NOTE | 2018-11-17 02:58 | NUR ---
Shift summary: Pt has been resting comfortably most of shift. Pt given oxycodone and zofran at beginning of shift and has been holding pt well. VSS. Pt has depressed affect and refuses to get up even for PT. Pt awaiting placement.
[2018-11-17 07:29] LABS: Hematocrit 29.3 % (37.0-53.0); Hemoglobin 9.6 g/dL (13.5-17.5)
[2018-11-17 07:52] LABS: Albumin, Blood 0.9 g/dL (3.4-5.0); Anion Gap 8 mmol/L (6-16); Blood Urea Nitrogen 36 mg/dL (8-24); Bun/Creatinine Ratio 10.7 (12.0-20.0); CO2, Blood 23 mmol/L (21-32); Calcium, Blood 7.5 mg/dL (8.5-10.1); Chloride, Blood 107 mmol/L (98-108); Creatinine, Blood 3.36 mg/dL (0.60-1.20); Glomerular Filtration Rate 20 (60-); Glucose, Blood 109 mg/dL (70-99); Magnesium, Blood 1.6 mg/dL (1.6-2.4); Phosphorus, Blood 3.8 mg/dL (2.5-4.9); Potassium, Blood 3.7 mmol/L (3.5-5.5); Sodium, Blood 138 mmol/L (136-145)
--- NOTE | 2018-11-17 17:57 | NUR ---
SHIFT SUMMARY PATIENT IS DOING EXTREMELY WELL TODAY. HE ATE MOST OF ONE MEAL AND HAS CONTINUED TO IMPRESS ME WITH HIS MOOD. I EVEN SAW HIM SMILE TODAY. HE SPOKE WITH THE DIETITIAN AND WAS ABLE TO PICK OUT SOME FOODS HE ENJOYED TODAY WHICH HAS HELPED IMPROVE HIS MOOD. HE HAS NOT ASKED ME FOR A PAIN MEDICATION AT ALL AND CURRENTLY IS RELAXING IN HIS BED. HE DID NOT HAVE ANY EPISODES OF MEDICATION NEEDED FOR EMESIS. HES SUCH A PLEASANT MAN TDAY. STILL WITHDRAWN.
--- NOTE | 2018-11-18 03:20 | NUR ---
Shift summary. Pt remains about the same with depressed affect. Pt edematous all over. On fluid restriction 1000 cc. Given oxycodone at hs for pain with adequate relief. pt's appetite was better yesterday. Na+ was 123 yesterday.
[2018-11-18 04:43] LABS: Hemoglobin 9.7 g/dL (13.5-17.5)
[2018-11-18 05:11] LABS: Albumin, Blood 0.9 g/dL (3.4-5.0); Anion Gap 8 mmol/L (6-16); Blood Urea Nitrogen 34 mg/dL (8-24); Bun/Creatinine Ratio 10.7 (12.0-20.0); CO2, Blood 25 mmol/L (21-32); Calcium, Blood 7.3 mg/dL (8.5-10.1); Chloride, Blood 105 mmol/L (98-108); Creatinine, Blood 3.17 mg/dL (0.60-1.20); Glomerular Filtration Rate 21 (60-); Glucose, Blood 103 mg/dL (70-99); Magnesium, Blood 1.8 mg/dL (1.6-2.4); Phosphorus, Blood 3.2 mg/dL (2.5-4.9); Potassium, Blood 3.6 mmol/L (3.5-5.5); Sodium, Blood 138 mmol/L (136-145)
--- NOTE | 2018-11-18 13:42 | NUR ---
c/o nausea to therapy, but when rn asks him if he wants something for it, refuses.
--- NOTE | 2018-11-18 17:56 | NUR ---
ALERT. ORIENTED. FLAT AFFECT. REFUSES TO GET OOB. WHEN RN WENT IN AFTER HE REFUSED THERAPY BECAUSE OF NAUSEA, PATIENT REFUSED ANTINAUSEA MEDS. MEDICATED FOR PAIN TO BACK AREA WHERE SHINGLES WERE. STS "IT HELPS." POOR APPETITE. UNLABORED RESPIRATIONS. IV PATENT. EDEMA T/O WITH WORSE FEET AT +4. CALL LIGHT WITHIN REACH. WILL CONTINUE TO MONITOR.
[2018-11-19 05:42] LABS: Hematocrit 29.1 % (37.0-53.0); Hemoglobin 9.7 g/dL (13.5-17.5)
[2018-11-19 06:10] LABS: Albumin, Blood 0.9 g/dL (3.4-5.0); Anion Gap 7 mmol/L (6-16); Blood Urea Nitrogen 36 mg/dL (8-24); Bun/Creatinine Ratio 12.5 (12.0-20.0); CO2, Blood 25 mmol/L (21-32); Calcium, Blood 7.3 mg/dL (8.5-10.1); Chloride, Blood 106 mmol/L (98-108); Creatinine, Blood 2.88 mg/dL (0.60-1.20); Glomerular Filtration Rate 24 (60-); Glucose, Blood 100 mg/dL (70-99); Magnesium, Blood 1.7 mg/dL (1.6-2.4); Potassium, Blood 3.8 mmol/L (3.5-5.5); Sodium, Blood 138 mmol/L (136-145)
--- NOTE | 2018-11-19 06:46 | NUR ---
SHIFT SUMMARY A/O, ALBE TO MAKE NEEDS KNOWN. COOPERATIVE WITH CARE. ANSWERS QUESTIONS APPROPRIATELY. C/O PAIN THIS AM; MEDICATED PER EMAR. NO ACUTE CHANGES OVERNIGHT. BED IN LOWEST POSITION. CALL LIGHT AND BELONGINGS WITHIN REACH. WCTM. REPORT TO ONCOMING RN.
--- NOTE | 2018-11-19 09:49 | NUR ---
TALKED TO ABOUT PAIN MEDS. OXY NOT HELPING AND IS ONLY BID. WAS ON ULTRAM Q4 AT HOME. OK TO D'C OXY AND ORDER ULTRAM Q6 50 MG. HEART RATE IN 120'S AND BECAUSE OF PARAMETERS NOT GIVEN LOPRESSOR (HOLD IF SYSTOLIC <140). PARAMETERS CHANGED.
--- NOTE | 2018-11-19 18:17 | NUR ---
ALERT. ORIENTED. TALKED TO PATIENT T/O DAY ABOUT; THERAPY, SHOWER, CHANGING LINEN ETC. NEAR END OF SHIFT PATIENT HAD SHOWER AND SAT IN CHAIR FOR DINNER. NO ASSISTANCE NEEDED FOR PATIENT GOING BACK TO BED. TALKATIVE, COOPERATIVE. UNLABORED RESPIRATIONS. ULTRAM SEEMS TO HELP ON PAIN CONTROL. IV PATENT. WCTM.
--- NOTE | 2018-11-20 03:49 | NUR ---
SHIFT SUMMARY PATIENT HAD NO ACUTE CHANGES OBSERVED THIS SHIFT. AXO X 3 AND BEDREST. TAKES MEDICAITION WHOLE WITH WATER WITH ASSISTANCE, HX OF HAND TREMORS. POWERGLIDE NEIDA INTACT. FLUID RESTRICTIONS 1,000 mL. VSS/AFEBRILE. DENIES PAIN, SOB, AND N/V. CALL LIGHT IN REACH. BED IN LOWEST POSITION. WILL CONTINUE TO MONITOR UNTIL DAY SHIFT NURSE ASSUMES CARE.
[2018-11-20 04:36] LABS: Hematocrit 29.5 % (37.0-53.0); Hemoglobin 9.6 g/dL (13.5-17.5)
[2018-11-20 04:50] LABS: Albumin, Blood 0.9 g/dL (3.4-5.0); Anion Gap 6 mmol/L (6-16); Blood Urea Nitrogen 33 mg/dL (8-24); Bun/Creatinine Ratio 12.7 (12.0-20.0); CO2, Blood 26 mmol/L (21-32); Calcium, Blood 7.4 mg/dL (8.5-10.1); Chloride, Blood 105 mmol/L (98-108); Creatinine, Blood 2.59 mg/dL (0.60-1.20); Glomerular Filtration Rate 27 (60-); Glucose, Blood 111 mg/dL (70-99); Magnesium, Blood 1.7 mg/dL (1.6-2.4); Phosphorus, Blood 2.9 mg/dL (2.5-4.9); Potassium, Blood 3.9 mmol/L (3.5-5.5); Sodium, Blood 137 mmol/L (136-145)
[2018-11-21 04:48] LABS: Hematocrit 30.1 % (37.0-53.0); Hemoglobin 9.7 g/dL (13.5-17.5)
--- NOTE | 2018-11-21 04:49 | NUR ---
SHIFT SUMMARY: PT IS ALERT AND ORIENTED. PT IS CALM AND COOPERATIVE WITH CARE. PT CALLS APPROPRIATELY. PT IS A STANDBY ASSIST, NOT OUT OF BED OVERNIGHT. PT SLEPT INTERMITTENTLY THROUGHOUT THE NIGHT. PT DENIES PAIN, NAUSEA, VOMITING, AND SOB. NO ACUTE CHANGES OR COMPLICATIONS THIS SHIFT. CURRENTLY AWAITING PLACEMENT. BED IN LOW POSITION, CALL LIGHT WITHIN REACH WILL REPORT TO DAY NURSE.
[2018-11-21 05:02] LABS: Albumin, Blood 0.8 g/dL (3.4-5.0); Anion Gap 6 mmol/L (6-16); Blood Urea Nitrogen 38 mg/dL (8-24); Bun/Creatinine Ratio 15.7 (12.0-20.0); CO2, Blood 27 mmol/L (21-32); Calcium, Blood 7.3 mg/dL (8.5-10.1); Chloride, Blood 106 mmol/L (98-108); Creatinine, Blood 2.42 mg/dL (0.60-1.20); Glomerular Filtration Rate 29 (60-); Glucose, Blood 109 mg/dL (70-99); Magnesium, Blood 1.8 mg/dL (1.6-2.4); Phosphorus, Blood 2.2 mg/dL (2.5-4.9); Potassium, Blood 4.2 mmol/L (3.5-5.5); Sodium, Blood 139 mmol/L (136-145)
--- NOTE | 2018-11-21 19:07 | NUR ---
SUMMARY- PT ALERT AND ORIENTED- SLEEPY, DOSING ON OFF DURING THE DAY. GOT UP OOB TO BATHROOM SBA WITHOUT DIZZINESS. PT'S BP DROPPED THIS AM WITH ORTHOS. PT WORKED WITH OT AND DID EXERCISES IN BED, HAS LIMITED MOTIVATION. PT STATES SHINGLES PAIN L SIDE, MEDICATED WITH ULTRAM, STATES ADEQUATE RELEIF. PT CONT TO HAVE LE AND GEN BODY EDEMA, CONT WITH BUMEX PO. ON FLUID RESTRICTION.
--- NOTE | 2018-11-22 04:56 | NUR ---
SHIFT SUMMARY: PT IS ALERT AND ORIENTED. PT IS CALM AND COOPERATIVE WITH CARE, SOMEWHAT OF A FLAT DEMEANOR. PT CALLS APPROPRIATELY. PT IS INDEPENDENT IN THE ROOM. PT REPORTS BACK PAIN ON ONE OCCASION, GAVE PRN TRAMADOL. PT DENIES NAUSEA, VOMITING, AND SOB. PT SLEPT INTERMITTENTLY THROUGHOUT THE NIGHT. AWAITING PLACEMENT. NO ACUTE CHANGES. WILL REPORT TO DAY NURSE.
--- NOTE | 2018-11-22 17:59 | NUR ---
SHIFT SUMMARY PATIENT IS PLEASANT. NO ACUTE CONCERNS TODAY. NO PAIN MEDICATIONS NEEDED FROM ME THIS SHIFT. NO COMPLAINTS OF PAIN.
--- NOTE | 2018-11-23 03:28 | NUR ---
NOC SHIFT SUMMARY PT IS PLEASANT AND COOPERATIVE WITH CARE. TREATED ONCE FOR PAIN PER EMAR. PT HAS SLEPT MOST IF THE NIGHT IN BED AND HAS NOT VOICED ANY NEEDS. PRESENTLY IS ASLEEP AND SNORING SOFTLY. APPEARS IN NO ACUTE DISTRESS. VSS. WILL CONTINUE TO MONITOR.
[2018-11-23 04:39] LABS: Hematocrit 30.6 % (37.0-53.0); Hemoglobin 9.8 g/dL (13.5-17.5)
[2018-11-23 05:05] LABS: Albumin, Blood 0.7 g/dL (3.4-5.0); Anion Gap 7 mmol/L (6-16); Blood Urea Nitrogen 41 mg/dL (8-24); Bun/Creatinine Ratio 23.8 (12.0-20.0); CO2, Blood 26 mmol/L (21-32); Calcium, Blood 7.4 mg/dL (8.5-10.1); Chloride, Blood 104 mmol/L (98-108); Creatinine, Blood 1.72 mg/dL (0.60-1.20); Glomerular Filtration Rate 43 (60-); Glucose, Blood 105 mg/dL (70-99); Magnesium, Blood 1.6 mg/dL (1.6-2.4); Phosphorus, Blood 1.8 mg/dL (2.5-4.9); Potassium, Blood 3.9 mmol/L (3.5-5.5); Sodium, Blood 137 mmol/L (136-145)
--- NOTE | 2018-11-23 11:44 | NUR ---
contact with hospice to update pt enroute to home
--- NOTE | 2018-11-23 16:51 | NUR ---
SHIFT SUMMARY PATIENT IS PLEASANT. NO ACUTE CONCERNS OF TODAY. HE IS WORKING WITH PHYSICAL THERAPY IN HOPES OF GETTING STRONGER HE WOULD LIKE TO GET OUT OF HOSPITAL TO SOMEWHERE THAT CAN HELP HIM IMPROVE TO THE POINT HE MAY BE SAFE TO GO HOME.
--- NOTE | 2018-11-24 03:40 | NUR ---
NOC SHIFT SUMMARY PT IS PLEASANT AND COOPERATIVE WITH CARE. HAS BEEN IN BED SINCE START OF SHIFT. HE RELATES HE DID SOME PT TODAY AND IS VERY TIRED FROM IT. VSS. NO ACUTE CHANGES NOTED THIS SHIFT. PRESENTLY APPEARS TO BE SLEEPING. WILL CONTINUE TO MONITOR.
--- NOTE | 2018-11-24 17:51 | NUR ---
SHIFT SUMMARY PATIENT IS PLEASNT TODAY. HE GOT A VISIT FROM THE [facility]OLUNTE[facility]. HE WAS VERY HAPPY ABOUT THAT. PATIENT HAS TAKEN HIS MEDICATIONS DIRECTED. TWO DOSES OF PAIN MEDICATION HAVE BEEN ADMINISTERED TODAY. NO ACUTE CONCERNS FROM THE PATIENT AT THIS TIME.
--- NOTE | 2018-11-25 03:04 | NUR ---
NOC SHIFT SUMMARY PT IS PLEASANT AND COOPERATIVE WITH CARE THIS NIGHT. NO ACUTE CHANGES NOTED. VSS. HAS NOT COMPLAINED OF PAIN OR DISCOMFORT. PT HAS LARGELY SLEPT THIS NIGHT. CONTINUES TO BE DIURESED BY CHIQUITA. 1000ML FLUID RESTRICTION. APPEARS IN NO ACUTE DISTRESS. WILL CONTINUE TO MONITOR.
[2018-11-25 04:25] LABS: Hematocrit 31.3 % (37.0-53.0); Hemoglobin 10.1 g/dL (13.5-17.5)
[2018-11-25 04:44] LABS: Albumin, Blood 0.7 g/dL (3.4-5.0); Anion Gap 5 mmol/L (6-16); Blood Urea Nitrogen 37 mg/dL (8-24); CO2, Blood 29 mmol/L (21-32); Calcium, Blood 7.6 mg/dL (8.5-10.1); Chloride, Blood 103 mmol/L (98-108); Creatinine, Blood 1.37 mg/dL (0.60-1.20); Glomerular Filtration Rate 55 (60-); Glucose, Blood 158 mg/dL (70-99); Magnesium, Blood 1.6 mg/dL (1.6-2.4); Phosphorus, Blood 2.9 mg/dL (2.5-4.9); Potassium, Blood 3.8 mmol/L (3.5-5.5); Sodium, Blood 137 mmol/L (136-145)
--- NOTE | 2018-11-25 10:45 | NUR ---
TRAN HAS AN APPOINTMENT WITH THE Nov @[id number].
[2018-11-25] MEDS ORDERED: CAPSAICIN TOP (16:13)
[2018-11-25] MEDS ORDERED: LORA.5 PO (16:14)
[2018-11-25] MEDS ORDERED: TRAZ50 PO (16:15)
--- NOTE | 2018-11-25 17:14 | NUR ---
FOLLOW UP APPOINTMENT MADE WITH PCP AND DR PORRAS. [facility], SCRIPT FOR ATIVAN GIVEN TO PT. [facility] CALLED FOR W/C TRANSPORT HOME WITH HOME HE[facility].
--- NOTE | 2018-11-25 18:52 | NUR ---
DISCHARGE THIS PT DISCHARGED TO HOME WITH HOME HEALTH. THIS RN EXPLAINED DISCHARGE INSTRUCTIONS AND MEDICATIONS TO PT AND HE REPORTS HE UNDERSTANDS. POWERGLIDE REMOVED WITHOUT DIFFICULTY. PT REPORTS HE IS NOT GOING TO GET HIS MEDICATIONS FROM THE [facility]. THIS RN ADMINISTERED THE 1800 MEDICATIONS TO HELP. PT TRANSFERRED TO WHEELCHAIR [facility] VIA WHEELCHAIR BY [facility] STAFF. PT'S BELONGINGS WITH PT.
[2019-01-02] MEDS ORDERED: POTA10T PO (12:15)
[2019-02-06] MEDS ORDERED: Bumetanide2 MG PO (15:28)
[2019-02-06] MEDS ORDERED: POTA10T PO (15:29)
== END 2018-11-25 17:48 | disposition home health service (06) | DRG 699 ==
LOC: ER 17:48 → MEDS 20:03
PROVIDERS: Emergency Medicine; Family Medicine; Internal Medicine; Internal Medicine Nephrology; ADMIT Hospitalist
DX: N04.9 Nephrotic syndrome with unspecified morphologic changes (principal); B02.29 Other postherpetic nervous system involvement; F33.2 Major depressive disorder, recurrent severe without psychotic features; N17.9 Acute kidney failure, unspecified; E87.70 Fluid overload, unspecified; I12.9 Hypertensive chronic kidney disease with stage 1 through stage 4 chronic kidney disease, or unspecified chronic kidney disease; E88.09 Other disorders of plasma-protein metabolism, not elsewhere classified; D63.1 Anemia in chronic kidney disease; R25.1 Tremor, unspecified; N25.81 Secondary hyperparathyroidism of renal origin; N18.4 Chronic kidney disease, stage 4 (severe); E87.6 Hypokalemia; E83.42 Hypomagnesemia; I95.1 Orthostatic hypotension; R60.1 Generalized edema
CPT/HCPCS: 36415; 80048; 80053; 80069; 81001; 83735; 84100; 84132; 85014; 85018; 85025; 85027; 93005; 93010; 93306; 97110; 97162; 97166; 97530; 97535; 99285; A9270-GY; C1751; J0881; J1644; J1650; J1940; J2405; J2550; J2765; J3475; J3480; J7050; J7060; J7512; P9041

== ENCOUNTER 2018-12-17 12:43 | Inpatient (IN) | payer OTHER ==
[~2018-12-17] VITALS: Ht 182.9 cm; Wt 124.8 kg
[~2018-12-17 12:43] MED LIST changes: +CAPSAICIN TOP; +ESCI10 PO; +LIDO5TO TOP; +LORA.5 PO; +METO25ER PO; +METO5 PO; +NIAC500ER PO; +TRAZ50 PO; +VITAMIN D350000 UNIT PO; +ZINC220 PO
[2018-12-17 13:08] LABS: BASOPHILS ABSOLUTE AUTO 0.03 K/mm3 (0.00-0.23); BASOPHILS PERCENT AUTO 0 % (0-2); EOSINOPHILS ABSOLUTE AUTO 0.09 K/mm3 (0.00-0.68); EOSINOPHILS PERCENT AUTO 1 % (0-6); Hematocrit 31.8 % (37.0-53.0); Hemoglobin 9.8 g/dL (13.5-17.5); IMMATURE GRAN ABSOLUTE AUTO 0.18 K/mm3 (0.00-0.10); IMMATURE GRAN PERCENT AUTO 2 % (0-1); LYMPHOCYTES ABSOLUTE AUTO 0.75 K/mm3 (0.84-5.20); LYMPHOCYTES PERCENT AUTO 8 % (21-46); MONOCYTES ABSOLUTE AUTO 0.31 K/mm3 (0.16-1.47); MONOCYTES PERCENT AUTO 3 % (4-13); Mean Corpuscular HGB 31.5 pg (26.0-34.0); Mean Corpuscular HGB Conc 30.8 g/dL (31.5-36.5); Mean Corpuscular Volume 102 fL (80-100); Mean Platelet Volume 9.1 fL (9.1-12.4); NEUTROPHILS ABSOLUTE AUTO 8.55 K/mm3 (1.96-9.15); NEUTROPHILS PERCENT AUTO 86 % (41-73); Platelet Count 233 K/mm3 (150-400); RDW Coefficient Variation 15.5 % (11.7-14.2); RDW Standard Deviation 58.6 fL (35.1-46.3); Red Blood Cell Count 3.11 M/mm3 (4.30-5.90); White Blood Cell Count 9.91 K/mm3 (4.00-11.30)
[2018-12-17] MEDS ORDERED: CALCIUM 500 +1 EAC3 PO (13:15)
[2018-12-17] MEDS ORDERED: Bumetanide2 MG PO ×2 (13:15→16:18)
[2018-12-17] MEDS ORDERED: Vitamin D2000 UNIT PO (13:16)
[2018-12-17] MEDS ORDERED: CALC.25 PO (13:16)
[2018-12-17] MEDS ORDERED: FLUO10 PO (13:17)
[2018-12-17] MEDS ORDERED: ONDA4 PO (13:19)
[2018-12-17] MEDS ORDERED: PRED5 PO (13:20)
[2018-12-17] MEDS ORDERED: TRAM50 PO (13:20)
[2018-12-17] MEDS ORDERED: PARO20 PO (13:21)
[2018-12-17] MEDS ORDERED: GABA100 PO (13:21)
[2018-12-17] MEDS ORDERED: MIDO5 PO (13:22)
[2018-12-17] MEDS ORDERED: MIRALAX17 GM PO (13:23)
[2018-12-17] MEDS ORDERED: POTA10T PO (13:24)
[2018-12-17 13:27] LABS: Troponin I 0.471 ng/mL (0.000-0.040)
[2018-12-17 13:38] LABS: Albumin, Blood 0.6 g/dL (3.4-5.0); Albumin/Globulin Ratio 0.2 (0.8-1.8); Bilirubin, Total 0.1 mg/dL (0.1-1.0); Bun/Creatinine Ratio 18.8 (12.0-20.0); Calcium, Blood 7.7 mg/dL (8.5-10.1); Creatinine, Blood 2.66 mg/dL (0.60-1.20); Globulin, Blood 3.8 g/dL (2.2-4.0); Potassium, Blood 4.7 mmol/L (3.5-5.5); Total Protein, Blood 4.4 g/dL (6.4-8.2)
--- NOTE | 2018-12-17 18:57 | NUR ---
SHIFT SUMMARY PT ALERT AND ORIENTED. VS STABLE. O2 SATS REMAIN ABOVE 90% ON 2L NC. PT COMPLAINS OF SOB WITH EXERTION. PT HAS ABRAISIONS BILATERAL ARMS. PT REPORTS HE HAD SHINGLES RECENTLY AND THE ABRAISIONS ARE LEFT OVER. WEEPING EDEMA NOTED TO ARMS AND 3+ PITTING EDEMA TO BOTH LEGS. PT COMPLAINED OF PAIN TO BACK AND BOTH ARMS THAT IS CHRONIC. PT MEDICATED PER EMAR. WILL CONTINUE TO MONITOR AND REPORT TO ONCOMING RN. CALL LIGHT IN REACH.
--- NOTE | 2018-12-18 05:08 | NUR ---
Shift Summary At begining of shift, pt was to transfer to room 355 as he is medical status. Pt refusing to be transferred d/t "PTSD from that floor". This RN attempts to speak with pt about fears and frustrations from previous experiences. This RN explains the need for him to transfer upstairs. Pt becoming agitated and continues to refuse transfer. CN notified and attempts to speak to pt. Pt continues to refuse. Nursing trash collector supervisor notified and asked to speak with pt. Pt refuses to speak to nursing trash collector supervisor stating "if I have to go upstairs, i want to leave the hospital instead." Pt then states "If i can't stay in this room I will set myself of fire outside." Provider called and notified of pt statement as pt has hx of SI. Provider, Lulu LATIF, at bedside with pt. Per provider, pt to stay in room PCU 4 overnight. VSS this shift. No acute changes. See shift assessment for detailed assessment, no changes since initial assessment. Pt continues with weeping edema, BLE elevated on pillows. Pt breathing easy and unlabored. No changes to mentation or O2 demand this shift. No events on Tele. Pt denies chest pain or pressure this shift. Able to make needs known and uses call light appropriately. Echo to be done this AM. Will continue to monitor and provide care per orders.
[2018-12-18 05:26] LABS: BASOPHILS ABSOLUTE AUTO 0.04 K/mm3 (0.00-0.23); BASOPHILS PERCENT AUTO 0 % (0-2); EOSINOPHILS ABSOLUTE AUTO 0.14 K/mm3 (0.00-0.68); EOSINOPHILS PERCENT AUTO 2 % (0-6); Hematocrit 29.1 % (37.0-53.0); Hemoglobin 9.2 g/dL (13.5-17.5); IMMATURE GRAN ABSOLUTE AUTO 0.15 K/mm3 (0.00-0.10); IMMATURE GRAN PERCENT AUTO 2 % (0-1); LYMPHOCYTES ABSOLUTE AUTO 1.99 K/mm3 (0.84-5.20); LYMPHOCYTES PERCENT AUTO 22 % (21-46); MONOCYTES ABSOLUTE AUTO 0.83 K/mm3 (0.16-1.47); MONOCYTES PERCENT AUTO 9 % (4-13); Mean Corpuscular HGB Conc 31.6 g/dL (31.5-36.5); NEUTROPHILS ABSOLUTE AUTO 5.99 K/mm3 (1.96-9.15); NEUTROPHILS PERCENT AUTO 66 % (41-73); Platelet Count 239 K/mm3 (150-400); RDW Coefficient Variation 15.2 % (11.7-14.2); RDW Standard Deviation 55.2 fL (35.1-46.3); Red Blood Cell Count 2.97 M/mm3 (4.30-5.90); White Blood Cell Count 9.14 K/mm3 (4.00-11.30)
[2018-12-18 05:28] LABS: Mean Corpuscular Volume 98 fL (80-100)
[2018-12-18 05:45] LABS: Albumin, Blood 0.6 g/dL (3.4-5.0); Anion Gap 7 mmol/L (6-16); Blood Urea Nitrogen 50 mg/dL (8-24); Bun/Creatinine Ratio 18.8 (12.0-20.0); CO2, Blood 22 mmol/L (21-32); Calcium, Blood 7.5 mg/dL (8.5-10.1); Chloride, Blood 114 mmol/L (98-108); Creatinine, Blood 2.66 mg/dL (0.60-1.20); Glomerular Filtration Rate 26 (60-); Glucose, Blood 85 mg/dL (70-99); Magnesium, Blood 2.5 mg/dL (1.6-2.4); Potassium, Blood 4.7 mmol/L (3.5-5.5); Sodium, Blood 143 mmol/L (136-145); Troponin I 0.287 ng/mL (0.000-0.040)
[2018-12-18 05:49] LABS: Percent Saturation 93.1 % (20.0-50.0)
--- NOTE | 2018-12-18 09:13 | NUR ---
BEGINNING OF SHIFT Assumed care at 0700. Bedside report received from Tiff EDEN. Pt on 2 LPM NC. Room air at baseline. Pt states he is having pain. This RN offered Tylenol. Pt states "I don't want Tylenol." This RN inquires why pt does not want Tylenol, he states "I can't take it. I keep telling them I can't take Tylenol". This RN inquires why pt cannot take Tylenol, pt states "I just can't take it! Okay!". This RN notified pt that tramadol is not available at this time as it is ordered once daily. Pt states he typically takes tramadol every 6 hours. Will address with provider.
--- NOTE | 2018-12-18 10:04 | NUR ---
Echocardiogram completed.
--- NOTE | 2018-12-18 12:24 | NUR ---
UPDATE Pt titrated to room air. SpO2 96%. This RN attempted to remove NC, after supplemental O2 had been off for several minutes. Pt stated "I need the oxygen". This RN notified him that he is on room air and SpO2 is 96%. Dr Isabel at bedside. Pt states that [facility] Q[facility]. This RN obtained records from [facility], and verified that tramadol is prescribed once daily. Pt notified of this. Pt adamantly states he can take it every six hours. Pt's home medication bottle also states that this medication is prescribed only once daily. Provider reminds patient that he is medical floor status. Pt states continuous disatisfaction with medical floor. Pt states [facility]. This RN states this transfer is not possible. Pt demands [facility] to the [facility]. Pt then starts yelling "I'm suicidal! I need to go to the [facility]!" This RN asks pt if he has a plan for suicide, pt states "Hell yeah I do!". Dr Isabel notified. 2 MD hold implemented. Suicide precautions implemented. Room mitigation preformed by Valerie EDEN. Nursing curriculum supervisor notified. [facility] as sitter at pt bedside.
--- NOTE | 2018-12-18 14:04 | NUR ---
TRANSFER Pt transferred to room 345 accompanied by Olivia EDEN, ISAMAR Varner, and security. Telephone report given to Aviva EDEN. Pt agreed to transfer if supplemental O2 was turned back on. Pt on 2 LPM NC for transfer.
--- NOTE | 2018-12-18 14:57 | NUR ---
THIS RN ASKED PATIENT IF HE WAS FEELING SUICIDAL. HE STATED "NO I AM NOT SUICIDAL, THEY TRICKED ME INTO SAYING I WAS SO THEY COULD MOVE ME TO THE MEDICAL FLOOR." PATIENT REQUESTING TO GO TO THE [facility] THE [facility]. CURRENTLY SITTING IN BED, MAKING HIS NEEDS KNOWN. BELONGINGS LOCKED IN CUPBOARD. NO ACUTE ISSUES NOTED.
--- NOTE | 2018-12-18 17:53 | NUR ---
VERIFIED WITH REMOTE MONITORS THAT PATIENT IS ON CAMERA FOR SUICIDE WATCH.
[2018-12-19 04:48] LABS: BASOPHILS ABSOLUTE AUTO 0.02 K/mm3 (0.00-0.23); BASOPHILS PERCENT AUTO 0 % (0-2); EOSINOPHILS ABSOLUTE AUTO 0.12 K/mm3 (0.00-0.68); EOSINOPHILS PERCENT AUTO 1 % (0-6); Hematocrit 29.2 % (37.0-53.0); Hemoglobin 9.1 g/dL (13.5-17.5); IMMATURE GRAN ABSOLUTE AUTO 0.15 K/mm3 (0.00-0.10); IMMATURE GRAN PERCENT AUTO 2 % (0-1); LYMPHOCYTES ABSOLUTE AUTO 1.69 K/mm3 (0.84-5.20); LYMPHOCYTES PERCENT AUTO 20 % (21-46); MONOCYTES ABSOLUTE AUTO 0.77 K/mm3 (0.16-1.47); MONOCYTES PERCENT AUTO 9 % (4-13); Mean Corpuscular HGB 31.6 pg (26.0-34.0); Mean Corpuscular HGB Conc 31.2 g/dL (31.5-36.5); Mean Platelet Volume 9.3 fL (9.1-12.4); NEUTROPHILS ABSOLUTE AUTO 5.63 K/mm3 (1.96-9.15); NEUTROPHILS PERCENT AUTO 67 % (41-73); Platelet Count 249 K/mm3 (150-400); RDW Coefficient Variation 14.9 % (11.7-14.2); RDW Standard Deviation 55.8 fL (35.1-46.3); Red Blood Cell Count 2.88 M/mm3 (4.30-5.90); White Blood Cell Count 8.38 K/mm3 (4.00-11.30)
[2018-12-19 04:54] LABS: Mean Corpuscular Volume 101 fL (80-100)
[2018-12-19 05:10] LABS: Albumin, Blood 0.5 g/dL (3.4-5.0); Anion Gap 6 mmol/L (6-16); Blood Urea Nitrogen 52 mg/dL (8-24); Bun/Creatinine Ratio 19.3 (12.0-20.0); CO2, Blood 23 mmol/L (21-32); Calcium, Blood 7.6 mg/dL (8.5-10.1); Chloride, Blood 112 mmol/L (98-108); Glomerular Filtration Rate 25 (60-); Glucose, Blood 100 mg/dL (70-99); Magnesium, Blood 2.3 mg/dL (1.6-2.4); Phosphorus, Blood 4.1 mg/dL (2.5-4.9); Potassium, Blood 4.5 mmol/L (3.5-5.5); Sodium, Blood 141 mmol/L (136-145)
--- NOTE | 2018-12-19 05:57 | NUR ---
SHIFT SUMMARY PT DISGRUNTLED MUCH OF THE SHIFT. VERY UNHAPPY ABOUT BEING ON MEDICAL FLOOR. COMPARED MEDICAL FLOOR AT ONE TIME TO "A [facility] DOCTOR THAT DISSECTED TWINS WITHOUT ANESTHESIA" AND REPORTED THAT HE GETS "PTSD" FROM THE MEDICAL FLOOR. PT SLEPT OFF AND ON MOST OF THE NIGHT. PT REPORTED FEELING SOB BOTH AT REST AND W/ EXERTION. O2 SATS IN THE MID 90'S ON 2 L O2 NC. LUNG SOUNDS DIMINISHED. PITTING EDEMA THROUGHOUT, WEEPING IN UPPER EXTREMETIES. LOW OUTPUT, WITH ONE UNMEASURED VOID AND ANOTHER WITH [address] PORRAS IN TO SEE PT THIS EVENING. OTHERWISE NO ACUTE CHANGES. VSS. WILL CONTINUE TO MONITOR AND REPORT TO DAY RN.
--- NOTE | 2018-12-19 07:08 | NUR ---
Assumed care of patient Received report from mine shifter RN Juanito. Patient is resting in bed comfortably and denying suicide ideations at this time. Oxygen at 2 liters via NC. Bed in lowest position and call light near.
--- NOTE | 2018-12-19 10:54 | NUR ---
Verified Camera This RN verified with Mari on remote monitors that patient is on camera for suicide watch.
--- NOTE | 2018-12-19 15:57 | NUR ---
BREATHING TREATMENT REQUEST Patient requested breathing treatment after using the bathroom. RT in room to provide treatment at this time.
--- NOTE | 2018-12-19 17:50 | NUR ---
Shift Summary Patient is A/O x 4, very conversational and cooperative with care. Calls appropriately. Patient reports continued weakness and dyspnea on exertion. RT has been called for treatments x3 per patient request. Pt c/o pain "Everywhere;" however, when offered Tylenol, pt declines because his "liver is crap." Ultram was offered, pt also declined stating "There's no use. The pain will just come back." Pt is edematous on all extremities, weeping in BUE, and dependent edema in torso area. Pt has been continent, up to the bathroom independently. NO complaints of N/V/D or urinary urgency. Cooperative with fluid restrictions. SI has been DC'd this shift, belongings back in reach. No other acute changes this shift.
--- NOTE | 2018-12-20 04:28 | NUR ---
AOx3. 98% on 2L NC, pt does not use O2 @ home. SOB w/ minimal activity. BS present, pt passing gas, 2 large BMs yesterday, refused bedtime colace. C/o nausea, 4mg Zofran PO given @ 192. Pain rated 8/10, generalized, refusing pain medications. Tele shows sinus tach, 100's-110's for HR. Scattered scabs and bruising, mostly to upper arms, hx of shingles. Weeping edema to UE's, 3+ edema to LE's. Plan is stress test today 12/20 @ 1430, NPO 4hr before, water is okay. Pt is on 1500 FR.
[2018-12-20 05:20] LABS: Hematocrit 28.7 % (37.0-53.0); Hemoglobin 8.9 g/dL (13.5-17.5)
[2018-12-20 05:34] LABS: Albumin, Blood 0.6 g/dL (3.4-5.0); Anion Gap 9 mmol/L (6-16); Blood Urea Nitrogen 60 mg/dL (8-24); Bun/Creatinine Ratio 19.7 (12.0-20.0); CO2, Blood 21 mmol/L (21-32); Calcium, Blood 7.5 mg/dL (8.5-10.1); Chloride, Blood 112 mmol/L (98-108); Creatinine, Blood 3.04 mg/dL (0.60-1.20); Glomerular Filtration Rate 22 (60-); Glucose, Blood 94 mg/dL (70-99); Magnesium, Blood 2.2 mg/dL (1.6-2.4); Phosphorus, Blood 3.8 mg/dL (2.5-4.9); Potassium, Blood 4.6 mmol/L (3.5-5.5); Sodium, Blood 142 mmol/L (136-145)
--- NOTE | 2018-12-20 16:20 | NUR ---
PT IS A/OX3, PLEASANT AND COOPERATIVE, THE PT IS UP IND IN HIS ROOM, THE PT IS ON 1-2L/MIN O2 VIA NC PER HIS REQUEST, THE PT BECOMES MORE SOB WITH ACTIVITY, TODAY THE PT WAS UP INTO THE SHOWER AND WAS SOB ON RETURN TO THE BED, THE PT REPORTED PAIN ALL OVER HOWEVER DECLINED ORDERED TRAMADOL, THE PT WAS GIVEN A STRESS TEST THIS AFTERNOON AND SO FAR HAS TOLERATED IT WELL, CALL LIGHT IN REACH WILL CONTINUE TO MONITOR AND ASSESS FOR CHANGES
--- NOTE | 2018-12-21 04:27 | NUR ---
Stress test 12/20 normal, NPO since MN and breakfast held for possible resting portion today 12/21. No assessment changes. Pt had no issues staying within 1500 FR. No calls from tele, sinus tach. AOx3. 99% on 2L. Refused pain meds and colace. DC plan unknown.
[2018-12-21 05:17] LABS: Hematocrit 28.8 % (37.0-53.0); Hemoglobin 8.7 g/dL (13.5-17.5)
[2018-12-21 05:49] LABS: Albumin, Blood 0.6 g/dL (3.4-5.0); Anion Gap 9 mmol/L (6-16); Blood Urea Nitrogen 60 mg/dL (8-24); Bun/Creatinine Ratio 19.4 (12.0-20.0); CO2, Blood 20 mmol/L (21-32); Calcium, Blood 7.6 mg/dL (8.5-10.1); Chloride, Blood 112 mmol/L (98-108); Creatinine, Blood 3.09 mg/dL (0.60-1.20); Glomerular Filtration Rate 22 (60-); Glucose, Blood 105 mg/dL (70-99); Magnesium, Blood 2.3 mg/dL (1.6-2.4); Phosphorus, Blood 3.8 mg/dL (2.5-4.9); Potassium, Blood 4.3 mmol/L (3.5-5.5); Sodium, Blood 141 mmol/L (136-145)
[2018-12-21 17:10] LABS: Creatinine, Blood 3.27 mg/dL (0.60-1.20)
--- NOTE | 2018-12-21 18:27 | NUR ---
SHIFT SUMMARY PT AWAKE THIS AM, A&O, PLEASANT AND CO-OP. HAD BEEN MADE NPO FOR POSSIBLE RESTING PART OF STRESS TEST. NUC MED CALLED FOR CLARIFICATION BY CHRJeffrey RN. NO FURTHER TESTING NEEDED. DR CASH IN TO SEE PT EARLY, FOLLOWED BY DR PORRAS. NEW ORDERS RECEIVED. PT VERY EDEMATOUS; WEEPING EDEMA TO BUE'S AND BLE'S. SCATTERED SCABS TO ALL EXTREMITIES, BUT ESPECIALLY TO UPPER EXTREMITIES. PADS PLACED UNDER ARMS; CHANGED FREQUENTLY D/T WEEPING. LINEN CHANGED SEVERAL TIMES WELL. PT'S ARMS AND LEGS CONTINUED TO SWELL THRU OUT THE DAY, EVEN THOUGH IV BUMEX INCREASED. DR CASH NOTIFIED AND THEN DR PORRAS. STAT ORDERS RECEIVED. MEDS GIVEN AND LABS COMPLETE. DR PORRAS UPDATED WITH LAB RESULTS. SX CONSULT CALLED TO DR EDMOND FOR PERMA CATH PLACEMENT. DR EDMOND NOTIFIED AND CALLED WITH ORDERS TO MAKE PT NPO AT [place]. PT INFORMED OF NPO AND PERMA CATH PLACEMENT. PT INSTRUCTED TO CALL FOR URINE OUTPUT MEASUREMENT. PT HAD BEEN EMPTYING URINAL AND NOT CALLING, THEREFORE URINE OUTPUT IS NOT ACCURATE. HX OF CHF WITH SOB WHENEVER UP. ULTRAM OFFERED FOR C/O PAIN IN LEGS D/T SWELLING. PT DECLINED. PT HAS BEEN VERY PLEASANT AND TALKATIVE. CO-OP WITH 1500cc FR. CALL LT IN REACH.
--- NOTE | 2018-12-22 03:50 | NUR ---
SHIFT SUMMARY PT HAS WEEPING EDEMA ON BILATERAL UPPER EXTREMTIES AND BILATERAL LOWER EXTREMETIES. PT IS ON STRICT I'S AND O'S AND WAS ON 1500 ML FLUID RESTRICTION WHICH CHANGED TO NPO OF MIDNIGHT DUE TO PERMACATH PROCEDURE. PT TAKES WHOLE PILLS WITH APPLESAUCE TO DECREASE DIFFICULTY SWALLOWING. PT HAS HAD A JUNCTIONAL TACHYCARDIC RHYTYM PER LAKHWINDER SHANKS.PT EXPRESSED SOME FEAR ABOUT THE PERMACATH PROCEDURE AND MEEK CH PROVIDED EDUCATION AND THERAPEUTIC COMMUNICATION. PT STATED THAT HE HAS BEEN HAVING "LOOSE STOOLS" SO BOWEL CARE WAS HELD AND WILL CONTINUE TO MONITOR FOR WORSENING SYMPTOMS. PT HAS BEEN PLEASANT THROUGHOUT THE SHIFT AND USES CALL LIGHT APPROPRIATELY AND CALL LIGHT IS WITHIN REACH. PT HAS NOT SHOWN ANY ACUTE SIGNS OF DISTRESS.
[2018-12-22 04:26] LABS: Hematocrit 28.7 % (37.0-53.0); Hemoglobin 8.9 g/dL (13.5-17.5)
[2018-12-22 04:49] LABS: Albumin, Blood 0.7 g/dL (3.4-5.0); Anion Gap 10 mmol/L (6-16); Blood Urea Nitrogen 64 mg/dL (8-24); Bun/Creatinine Ratio 20.3 (12.0-20.0); CO2, Blood 21 mmol/L (21-32); Calcium, Blood 7.6 mg/dL (8.5-10.1); Chloride, Blood 110 mmol/L (98-108); Creatinine, Blood 3.16 mg/dL (0.60-1.20); Glomerular Filtration Rate 21 (60-); Glucose, Blood 89 mg/dL (70-99); Magnesium, Blood 2.2 mg/dL (1.6-2.4); Phosphorus, Blood 3.9 mg/dL (2.5-4.9); Potassium, Blood 4.1 mmol/L (3.5-5.5); Sodium, Blood 141 mmol/L (136-145)
--- NOTE | 2018-12-22 14:40 | NUR ---
PT TAKEN TO THE OR FOR PERMACATH PLACEMENT, A/OX3, ON O2 @ 2L/MIN
--- NOTE | 2018-12-22 15:29 | NUR ---
12/22/18 1529 Mari Ruggiero PT ON SCHEDULED ANTIBIOTICS
--- NOTE | 2018-12-22 16:45 | NUR ---
RECRUITING OPERATIONS CONSULTANT | CALL TO DR. ROB RIVAS (RADIOLOGIST) READ XRAY. STATES LOOKS LIKE IT'S IN THE RIGHT PLACE BUT "A LITTLE HIGH". DR. EDMOND MADE AWARE OF THE SITUATION, AND HE STATED IT WAS OKAY. RELAYED INFORMATION TO DIALYSIS CENTER.
--- NOTE | 2018-12-22 16:57 | NUR ---
PT ARRIVED BACK FROM THE THE OR A/OX3, DROWSY, AWAKENS TO ANSWER QUESTIONS APPROPRIATLY, DIALYSIS CATH WAS CONFIRMED TO BE INPLACE, AND DIALYSIS IS STARTING AT THIS TIME, THE PT WAS GIVEN A SANDWHICH AND AT THIS TIME IS AWAKE AND ALERT, THE PT IS UP WITH ASSIST, DIALYSIS NURSE IS IN THE ROOM AT THIS TIME WITH THE PT, CALL LIGHT IN REACH, WILL CONTINUE TO MONITOR AND ASSESS FOR CHANGES
--- NOTE | 2018-12-23 03:40 | NUR ---
SHIFT SUMMARY NO ACUTE CHANGES NOTED OVER NIGHT. PT RECEIVING DIALYSIS UPON ARRIVAL ON SHIFT FOLLOWING PLACEMENT OF PERMACATH TODAY. PT STATED THAT THE DIALYSIS WAS ABLE TO REMOVE ABOUT 2L OF FLUID PER DIALYSIS NURSE. PT APPEARED LESS SOB WITH ACTIVITY. PT DID HAVE C/O 9/10 PAIN TO L CHEST WHERE PERMICATH WAS PLACED, MEDICATED PER EMAR. PT APPEARED TO BE IN GOOD SPIRITS AND LOOKING FORWARD TO ADDITIONAL FLUID REMOVAL WITH DIALYSIS TODAY. PT APPEARS TO BE SLEEPING COMFORTABLY AT THIS TIME WITH NO APPARENT SIGNS OF ACUTE DISTRESS. ABLE TO MAKE NEEDS KNOWN AND CALL LIGHT IN REACH.
[2018-12-23 04:40] LABS: Hematocrit 28.8 % (37.0-53.0); Hemoglobin 9.2 g/dL (13.5-17.5)
[2018-12-23 05:00] LABS: Albumin, Blood 0.7 g/dL (3.4-5.0); Anion Gap 9 mmol/L (6-16); Blood Urea Nitrogen 50 mg/dL (8-24); Bun/Creatinine Ratio 17.8 (12.0-20.0); CO2, Blood 22 mmol/L (21-32); Calcium, Blood 7.3 mg/dL (8.5-10.1); Chloride, Blood 111 mmol/L (98-108); Creatinine, Blood 2.81 mg/dL (0.60-1.20); Glomerular Filtration Rate 24 (60-); Glucose, Blood 86 mg/dL (70-99); Magnesium, Blood 2.1 mg/dL (1.6-2.4); Potassium, Blood 4.2 mmol/L (3.5-5.5); Sodium, Blood 142 mmol/L (136-145)
--- NOTE | 2018-12-23 14:55 | NUR ---
SUMMARY PT IS A/O X4, PLEASANT AFFECT, IND TO BR, GAIT STEADY. CHR BUE TREMOR. HE STATE PAIN RCW S/P PERMACATH PLACEMENT SURG, DR CASH ORDER FENTANYL FOR RELIEF/CONTROL. GFR 24, DR PORRAS ORDER DIALYSIS TODAY, DIAL RN REPORT 2 KILO TAKEN OFF. FR 1.5L/DAY CONTINUES. VSS. PT STATE EYE INFECTION, DR CASH ORDER ANTIBX EYE GTTS.
--- NOTE | 2018-12-23 23:29 | NUR ---
NEW 20G IV PLACED TO L.AC BY TOM AGUIRRE W/US D/T ANASARCA AND DIFFICULT IV START. PREVIOUS IV WAS LEAKING TO R.AC SO WAS DC'D. FENTANYL AND ZOFRAN PRN RECIEVED FOR PAIN AND NAUSEA, AWAITING EFFECT. PT ALSO REQUESTED EYE GTTS WHICH WERE ADMINISTERED FOR RELIEF.
--- NOTE | 2018-12-24 04:42 | NUR ---
SUMMARY: PT A/OX4, INDEPENDENT, IS PLEASANT/COOPERATIVE W/CARE AND SPECIFIES NEEDS. HE REMAINS TO HAVE GENERAL ANASARCA AND WEEPING BUE'S DESPITE 1.5L FR. BLE'S EDEMA PERSISTS WELL W/JAMEE HOSE INTACT AND EXT'S ELEVATED ON PILLOWS. SCABS ARE SCATTERED TO BUE'S W/WEEPING OCCURING AT THESE SITES. HE CONT'S TO HAVE R.CW PAIN S/P PERMACATH SX PLACEMENT W/FENTANYL RECIEVED PRN FOR MODERATE RELIEF. INTERMITTENT NAUSEA PERSISTS W/ZOFRAN RECIEVED PRN FOR GOOD EFFECT AND EYE GTTS RECIEVED PRN PER PT REQUEST. NO ACUTE CHANGES, VSS/AFEBRILE. WCTM AND REPORT TO DAY RN.
[2018-12-24 05:13] LABS: Hematocrit 29.2 % (37.0-53.0); Hemoglobin 9.2 g/dL (13.5-17.5)
[2018-12-24 05:34] LABS: Albumin, Blood 0.8 g/dL (3.4-5.0); Anion Gap 8 mmol/L (6-16); Blood Urea Nitrogen 42 mg/dL (8-24); Bun/Creatinine Ratio 15.1 (12.0-20.0); CO2, Blood 26 mmol/L (21-32); Calcium, Blood 7.4 mg/dL (8.5-10.1); Chloride, Blood 107 mmol/L (98-108); Creatinine, Blood 2.78 mg/dL (0.60-1.20); Glomerular Filtration Rate 25 (60-); Glucose, Blood 89 mg/dL (70-99); Magnesium, Blood 2.1 mg/dL (1.6-2.4); Phosphorus, Blood 3.3 mg/dL (2.5-4.9); Potassium, Blood 3.6 mmol/L (3.5-5.5); Sodium, Blood 141 mmol/L (136-145)
[2018-12-24 09:08] LABS: HBSAG SCREEN Negative (Negative); HEP A AB, IGM Negative (Negative); HEP B CORE AB, IGM Negative (Negative); HEP C VIRUS AB <0.1 (0.0-0.9)
--- NOTE | 2018-12-24 15:27 | NUR ---
SUMMARY PT IS A/O X4, PLEASANT AFFECT. UP SBA. STATE CONTINUING R CHEST PAIN @ PERMACATH SURG SITE, HAVE GIVEN ULTRAM & FENTANYL 25MCG PRN FOR PAIN RELIEF. NO DIALYSIS TODAY, GFR 25. BLE EDEMATOUS 3+, RUE 2+/WEEPING. DR PORRAS MANAGING RENAL FX. PT IS COMPLIANT w FL REST 1.5L/DAY. HE STATED NAUSEA THIS AM PRN ZOFRAN GIVEN, REQUEST DIET CHANGES, MANAGER CUSTOMER IN TO SEE HIM & ADDRESS TO HIS SATISFACTION. VSS.
[2018-12-25 04:49] LABS: Hemoglobin 8.4 g/dL (13.5-17.5)
[2018-12-25 05:08] LABS: Albumin, Blood 0.8 g/dL (3.4-5.0); Anion Gap 8 mmol/L (6-16); Blood Urea Nitrogen 51 mg/dL (8-24); Bun/Creatinine Ratio 14.7 (12.0-20.0); CO2, Blood 25 mmol/L (21-32); Calcium, Blood 7.4 mg/dL (8.5-10.1); Chloride, Blood 108 mmol/L (98-108); Creatinine, Blood 3.46 mg/dL (0.60-1.20); Glomerular Filtration Rate 19 (60-); Glucose, Blood 111 mg/dL (70-99); Magnesium, Blood 2.1 mg/dL (1.6-2.4); Phosphorus, Blood 3.6 mg/dL (2.5-4.9); Potassium, Blood 3.9 mmol/L (3.5-5.5); Sodium, Blood 141 mmol/L (136-145)
--- NOTE | 2018-12-25 07:21 | NUR ---
SHIFT SUMMARY PT IS A 63 Y/O MALE, ADMITTED FOR CP. PT IS CURRENTLY A DIALYSIS PT, WITH A R CHEST PERMACATH IN PLACE. HE IS A&O X 3, AND INDEPENDENT IN THE ROOM. PT WAS MEDICATED TWICE FOR PAIN AND NAUSEA WITH PRN FENTANYL AND ZOFRAN. NO COMPLAINTS OF SOB. VITAL SIGNS STABLE. PER DR PORRAS, FLUID RESTRICTION DECREASED TO 1000 ML FROM 1500 ML. NO OTHER ACUTE CHANGES IN PT CONDITION NOTED DURING THE NIGHT. REPORT GIVEN TO ONCOMING NURSE.
--- NOTE | 2018-12-25 08:00 | NUR ---
PT PLEASANT COOP A/O. STATES SOME PAIN AT PERMACATH SITE, BELEIVES RESIDUAL FROM SHINGLES. H/R REG, NO MURMER NOTED. NO TELE. LUNGS CLEAR, RESP EASY, UNLABORED. ON R.A. BT X4 LAST BM YEST. VOIDS INDEPENDANT TO BATHROOM. PT HAS EDEMA BUE 2+, BLE 3+. WEEPING ON RT ARM. PT STATES SCROTAL SWELLING. IMPROVED SINCE DIALYSIS. BED IN LOW POSITION, CALL LITE IN REACH, CALLS APPROP
--- NOTE | 2018-12-25 12:28 | NUR ---
PT TO DIALYSIS AT 0900
--- NOTE | 2018-12-25 14:59 | NUR ---
Spiritual CAre inital note: Mr. Cervantes is very soft-spoken with a gentle demeanor. At time of visit, he was not feeling well and RN informed. He told me about his history of illness. He smiles easily. When I asked him how he kept smiling through his struggles, he said, "if feels better than complaining." He denied having family and appears to have little social support. He is non-pentecostal, but responded well to companionship and encouragement. Complimented him on his innate strength and kindness. He is not worried about his future, and plans to continue to face things in a positive way. I will remain available.
--- NOTE | 2018-12-25 16:35 | NUR ---
PT HAS BEEN PLEASANT TODAY, DID DO DIALYSIS TODAY. PT RESTING AT THIS TIME. BED IN LOW POSITION, CALL LITE IN REACH, CALLS APPROP
[2018-12-26 05:11] LABS: Hematocrit 36.6 % (37.0-53.0); Hemoglobin 11.7 g/dL (13.5-17.5)
[2018-12-26 05:38] LABS: Albumin, Blood 0.9 g/dL (3.4-5.0); Anion Gap 6 mmol/L (6-16); Blood Urea Nitrogen 43 mg/dL (8-24); CO2, Blood 28 mmol/L (21-32); Calcium, Blood 8.1 mg/dL (8.5-10.1); Chloride, Blood 110 mmol/L (98-108); Creatinine, Blood 3.08 mg/dL (0.60-1.20); Glomerular Filtration Rate 22 (60-); Glucose, Blood 76 mg/dL (70-99); Phosphorus, Blood 3.3 mg/dL (2.5-4.9); Potassium, Blood 3.9 mmol/L (3.5-5.5); Sodium, Blood 144 mmol/L (136-145)
--- NOTE | 2018-12-26 06:04 | NUR ---
SHIFT SUMMARY NO ACUTE CHANGES TONIGHT. PT IS A&O, PLEASANT, INDEPENDENT IN RM. FREQUENT PAIN MEDS REQUIRED FOR R PERMACATH PAIN RECIEVES 25 MCG FENTNAYL Q4H PRN. ANASARCA NOTED, 2+ EDEMA TO BLE, WEEPING EDEMA TO RUE. PT HAS ECCHYMOSIS AND SCABS TO BUE. 1L FR MAINTAINED. WILL CONT TO MONITOR AND PROVIDE CARE UNTIL PRESUMED BY ONCOMING RN.
--- NOTE | 2018-12-26 19:18 | NUR ---
SHIFT SUMMARY: NO ACUTE CHANGES TO REPORT THIS SHIFT. PT A&O; CALM AND COOPERATIVE WITH CARE; INDEPENDENT IN ROOM. PT C/O PAIN IN R CHEST WALL R/T RECENT PERMA CATH INSERTION; MEDICATED FOR PAIN PER EMAR. NEW DIALYSIS PT; DIALYSIS TODAY; 3L OFF; PT TO BEGIN OUTPATIENT DIALYSIS c [facility] ON SUNDAY. PITTING EDEMA T/O. ASPIRATION PRECAUTIONS; FLUID [id number]/DAY. EXPECTED D/C TO HOME c HOME HEALTH 12/27. REPORT GIVEN TO ONCOMING RN.
--- NOTE | 2018-12-27 04:49 | NUR ---
12/27/18 0445 PT CALLED FOR HIS IV PAIN MED. INFORMED THAT IT WAS TOO SOON. "OKAY," HE SAID AND WENT BACK TO SLEEP.
[2018-12-27 05:22] LABS: Hematocrit 30.3 % (37.0-53.0); Hemoglobin 9.5 g/dL (13.5-17.5)
[2018-12-27 05:58] LABS: Albumin, Blood 0.8 g/dL (3.4-5.0); Anion Gap 6 mmol/L (6-16); Blood Urea Nitrogen 36 mg/dL (8-24); Bun/Creatinine Ratio 12.1 (12.0-20.0); CO2, Blood 29 mmol/L (21-32); Calcium, Blood 7.6 mg/dL (8.5-10.1); Chloride, Blood 107 mmol/L (98-108); Creatinine, Blood 2.98 mg/dL (0.60-1.20); Glomerular Filtration Rate 23 (60-); Glucose, Blood 86 mg/dL (70-99); Magnesium, Blood 1.8 mg/dL (1.6-2.4); Phosphorus, Blood 3.1 mg/dL (2.5-4.9); Potassium, Blood 3.7 mmol/L (3.5-5.5); Sodium, Blood 142 mmol/L (136-145)
--- NOTE | 2018-12-27 06:56 | NUR ---
12/27/18 0645 [facility] N[facility] WITH C/O PAIN/NAUSEA ON AND OFF. SEE MAR FOR MEDS GIVEN. PERMACATH INTACT TO RT UPPER CHEST. VITALS STABLE. PLAN DIALYSIS TODAY AND POSSIBLE DISCHARGE AFTERWARDS.
[2018-12-27] MEDS ORDERED: FURO80 PO (12:02)
[2018-12-27] MEDS ORDERED: METO5 PO (12:18)
--- NOTE | 2018-12-27 16:25 | NUR ---
PATIENT DISCHARGE: PATIENT DISCHARGED/ XFR TO HOME HEALTH THIS SHIFT. MEDICATION RECONCILIATION COMPLETED; MED LIST FAXED TO [facility]. DISCHARGE EDUCATION COMPLETED WITH PATIENT. PATIENT TRANSPORTED TO EXIT BY [facility] WITH WHEELCHAIR AT 1622. PATIENT DEPARTED [facility] VIA [facility].
[2019-01-02] MEDS ORDERED: POTA10T PO (12:15)
[2019-02-06] MEDS ORDERED: Bumetanide2 MG PO (15:28)
[2019-02-06] MEDS ORDERED: POTA10T PO (15:29)
== END 2018-12-27 16:21 | disposition home health service (06) | DRG 682 ==
LOC: ER 12:43 → PCU 13:47 → MEDS 13:47 → PCU 17:19 → MEDS 17:20 → PCU 17:32 → MEDS 12-18 13:58 → ENPENDDIS 12-27 11:44 → MEDS 12-27 16:21
PROVIDERS: Emergency Medicine; Internal Medicine; Internal Medicine Nephrology; Surgery; ADMIT Internal Medicine
PROC: 5A1D70Z Performance of Urinary Filtration, Intermittent, Less than 6 Hours Per Day (ICD-10-PCS; 2018-12-22)
PROC: 02HV33Z Insertion of Infusion Device into Superior Vena Cava, Percutaneous Approach (ICD-10-PCS; principal; 2018-12-22 14:45)
DX: N17.9 Acute kidney failure, unspecified (principal); I50.33 Acute on chronic diastolic (congestive) heart failure; J69.0 Pneumonitis due to inhalation of food and vomit; I13.2 Hypertensive heart and chronic kidney disease with heart failure and with stage 5 chronic kidney disease, or end stage renal disease; R45.851 Suicidal ideations; B02.29 Other postherpetic nervous system involvement; N18.6 End stage renal disease; N25.81 Secondary hyperparathyroidism of renal origin; N04.9 Nephrotic syndrome with unspecified morphologic changes; E78.5 Hyperlipidemia, unspecified; G25.81 Restless legs syndrome; D63.1 Anemia in chronic kidney disease; E66.9 Obesity, unspecified; Z68.22 Body mass index [BMI] 22.0-22.9, adult; E88.09 Other disorders of plasma-protein metabolism, not elsewhere classified; B02.9 Zoster without complications; I95.1 Orthostatic hypotension; E87.70 Fluid overload, unspecified
CPT/HCPCS: 36415; 36430; 71046; 76770; 78451; 80053; 80069; 80074; 82565; 82728; 83540; 83550; 83735; 83880; 84145; 84484; 85014; 85018; 85025; 86317; 86850; 86900; 86901; 86923; 92610; 93005; 93010; 93017; 93308; 93321; 94640; 94667; 94760; 94761; 96374; 96375; 97116; 97162; 97530; 99285-25; A9270-GY; A9500; C1750; J0456; J0696; J0706; J0881; J1644; J1650; J1940; J1956; J2250; J2405; J2704; J2765; J2785; J2997; J3010; J7030; J7050; J7512; P9016

== ENCOUNTER 2019-01-01 08:13 | Emergency (ER) | payer OTHER ==
[~2019-01-01] VITALS: Ht 188 cm; Wt 108.9 kg
[~2019-01-01 08:13] MED LIST changes: +Bumetanide2 MG PO; +CALCIUM 500 +1 EAC3 PO; +FLUO10 PO; +FURO80 PO; +GABA100 PO; +MIDO5 PO; +MIRALAX17 GM PO; +ONDA4 PO; +PARO20 PO; +POTA10T PO; +PRED5 PO; +TRAM50 PO
[2019-01-02] MEDS ORDERED: POTA10T PO (12:15)
[2019-02-06] MEDS ORDERED: Bumetanide2 MG PO (15:28)
[2019-02-06] MEDS ORDERED: POTA10T PO (15:29)
== END 2019-01-01 10:19 | disposition home or self-care (01) ==
LOC: ER 08:13
DX: T82.838A Hemorrhage due to vascular prosthetic devices, implants and grafts, initial encounter (principal); Z91.013 Allergy to seafood; Z91.040 Latex allergy status; Z79.899 Other long term (current) drug therapy; Z79.52 Long term (current) use of systemic steroids; Z79.891 Long term (current) use of opiate analgesic; F32.9 Major depressive disorder, single episode, unspecified; I12.9 Hypertensive chronic kidney disease with stage 1 through stage 4 chronic kidney disease, or unspecified chronic kidney disease; N18.3 Chronic kidney disease, stage 3 (moderate); E78.5 Hyperlipidemia, unspecified
CPT/HCPCS: 99283

== ENCOUNTER 2019-01-28 09:03 | Day surgery (SDC) | payer OTHER ==
[~2019-01-28] VITALS: Wt 97.0 kg
--- NOTE | 2019-01-28 12:58 | NUR ---
Surgical site prepped with 2% Chlorhexidine cloth wipe. Ambulatory in Day SurgeryLungs clear T/O to Auscultation. Patient confirms NPO status and agrees with scheduled surgery. Patient States Post-Procedure ride home has been arranged.
--- NOTE | 2019-01-28 15:50 | NUR ---
Discharge instructions reviewed with patient. Patient verbalizes understanding. Copy given to patient to take home. Patient up to Ambulate independently. Gait steady. PATIENT STATED RIDE HOME WAS ARRANGED WITH A FRIEND WHO WOULD BE HERE AROUND 1600. UPON DISCUSSING WITH THE PT HE WOULD HAVE TO WAIT IN UNIT UNTIL FRIEND ARRIVED PT STATED HE "LIED ABOUT HAVING A RIDE HOME. I JUST SAID THAT SO I COULD GET THIS ON WITH." CHARGE NURSE NOTIFIED AND WE ATTEMPTED TO CONTACT MEDICAL TRANSPORT WHO STATED TRANSPORT HAS TO BE SCHEDULED IN [facility] FOR SAME DAY PROCEDURES. CLINICAL COORDINATOR WAS NOTIFIED WELL NURSING CLINICAL NUTRITIONIST. PATIENT STATED "I AM LEAVING NO MATTER WHAT THE HELL HAPPENS." PT LEFT AMA.
--- NOTE | 2019-01-28 16:01 | NUR ---
DR. JHAVERI NOTIFIED PT LEFT AMA
[2019-02-06] MEDS ORDERED: Bumetanide2 MG PO (15:28)
[2019-02-06] MEDS ORDERED: POTA10T PO (15:29)
== END 2019-01-28 22:41 | disposition home or self-care (01) ==
LOC: ORD 09:03 → ORSCMMR 09:03 → ORD 10:15 → ORSCMMR 11:58
PROVIDERS: Surgery
PROC: B5141ZA Fluoroscopy of Left Jugular Veins using Low Osmolar Contrast, Guidance (ICD-10-PCS; principal; 2019-01-28 11:00)
PROC: 05HN33Z Insertion of Infusion Device into Left Internal Jugular Vein, Percutaneous Approach (ICD-10-PCS; principal; 2019-01-28 11:00)
PROC: 0JPT0WZ Removal of Totally Implantable Vascular Access Device from Trunk Subcutaneous Tissue and Fascia, Open Approach (ICD-10-PCS; principal; 2019-01-28 11:00)
DX: I12.0 Hypertensive chronic kidney disease with stage 5 chronic kidney disease or end stage renal disease (principal); N17.9 Acute kidney failure, unspecified; E03.9 Hypothyroidism, unspecified; E78.00 Pure hypercholesterolemia, unspecified; D50.9 Iron deficiency anemia, unspecified; Z79.899 Other long term (current) drug therapy
CPT/HCPCS: 77001; C1752; J0690; J1644; J2250; J2704; J3010; J7030

== ENCOUNTER 2019-02-20 15:00 | Emergency (ER) | payer OTHER ==
[~2019-02-20] VITALS: Ht 188 cm; Wt 94.3 kg
[~2019-02-20 15:00] MED LIST changes: +FURO80
[2019-02-20 15:35] LABS: BASOPHILS ABSOLUTE AUTO 0.08 K/mm3 (0.00-0.23); BASOPHILS PERCENT AUTO 1 % (0-2); EOSINOPHILS ABSOLUTE AUTO 0.12 K/mm3 (0.00-0.68); EOSINOPHILS PERCENT AUTO 1 % (0-6); Hematocrit 38.6 % (37.0-53.0); Hemoglobin 12.4 g/dL (13.5-17.5); IMMATURE GRAN ABSOLUTE AUTO 0.19 K/mm3 (0.00-0.10); IMMATURE GRAN PERCENT AUTO 2 % (0-1); LYMPHOCYTES PERCENT AUTO 3 % (21-46); MONOCYTES ABSOLUTE AUTO 0.51 K/mm3 (0.16-1.47); MONOCYTES PERCENT AUTO 4 % (4-13); Mean Corpuscular HGB 31.4 pg (26.0-34.0); Mean Corpuscular HGB Conc 32.1 g/dL (31.5-36.5); Mean Corpuscular Volume 98 fL (80-100); Mean Platelet Volume 9.9 fL (9.1-12.4); NEUTROPHILS ABSOLUTE AUTO 10.47 K/mm3 (1.96-9.15); NEUTROPHILS PERCENT AUTO 89 % (41-73); Platelet Count 256 K/mm3 (150-400); RDW Coefficient Variation 15.3 % (11.7-14.2); RDW Standard Deviation 54.7 fL (35.1-46.3); Red Blood Cell Count 3.95 M/mm3 (4.30-5.90); White Blood Cell Count 11.77 K/mm3 (4.00-11.30)
[2019-02-20 16:01] LABS: Albumin, Blood 2.5 g/dL (3.4-5.0); Albumin/Globulin Ratio 0.6 (0.8-1.8); Bilirubin, Total 0.3 mg/dL (0.1-1.0); Bun/Creatinine Ratio 9.7 (12.0-20.0); Calcium, Blood 8.2 mg/dL (8.5-10.1); Creatinine, Blood 4.63 mg/dL (0.60-1.20); Potassium, Blood 4.3 mmol/L (3.5-5.5); Total Protein, Blood 6.5 g/dL (6.4-8.2)
[2019-02-20] MEDS ORDERED: Roxicodone5 MG PO (18:16)
== END 2019-02-20 18:52 | disposition home or self-care (01) ==
LOC: ER 15:00
PROVIDERS: Physician Assistant
DX: R10.31 Right lower quadrant pain (principal); I12.0 Hypertensive chronic kidney disease with stage 5 chronic kidney disease or end stage renal disease; N18.6 End stage renal disease; D63.1 Anemia in chronic kidney disease; E78.5 Hyperlipidemia, unspecified; F32.9 Major depressive disorder, single episode, unspecified; Z99.2 Dependence on renal dialysis; Z91.018 Allergy to other foods; Z88.8 Allergy status to other drugs, medicaments and biological substances; Z91.040 Latex allergy status; Z91.048 Other nonmedicinal substance allergy status; Z79.899 Other long term (current) drug therapy; Z79.891 Long term (current) use of opiate analgesic
CPT/HCPCS: 74176; 80053; 83690; 85025; 96374; 96375; 99284-25; J0780; J1170; J1200; J2405

== ENCOUNTER 2019-03-02 11:18 | Emergency (ER) | payer OTHER ==
[~2019-03-02] VITALS: Ht 188 cm; Wt 95.2 kg
[~2019-03-02 11:18] MED LIST changes: +Magnesium Citr296 ML PO; +Roxicodone5 MG PO
[2019-03-02 12:04] LABS: BASOPHILS ABSOLUTE AUTO 0.06 K/mm3 (0.00-0.23); BASOPHILS PERCENT AUTO 1 % (0-2); EOSINOPHILS ABSOLUTE AUTO 0.13 K/mm3 (0.00-0.68); EOSINOPHILS PERCENT AUTO 1 % (0-6); Hematocrit 40.7 % (37.0-53.0); Hemoglobin 12.9 g/dL (13.5-17.5); IMMATURE GRAN ABSOLUTE AUTO 0.11 K/mm3 (0.00-0.10); IMMATURE GRAN PERCENT AUTO 1 % (0-1); LYMPHOCYTES ABSOLUTE AUTO 0.45 K/mm3 (0.84-5.20); LYMPHOCYTES PERCENT AUTO 4 % (21-46); MONOCYTES ABSOLUTE AUTO 0.25 K/mm3 (0.16-1.47); MONOCYTES PERCENT AUTO 2 % (4-13); Mean Corpuscular HGB 31.9 pg (26.0-34.0); Mean Corpuscular HGB Conc 31.7 g/dL (31.5-36.5); Mean Corpuscular Volume 101 fL (80-100); Mean Platelet Volume 9.8 fL (9.1-12.4); NEUTROPHILS ABSOLUTE AUTO 9.23 K/mm3 (1.96-9.15); NEUTROPHILS PERCENT AUTO 90 % (41-73); Platelet Count 250 K/mm3 (150-400); RDW Coefficient Variation 15.9 % (11.7-14.2); RDW Standard Deviation 57.9 fL (35.1-46.3); Red Blood Cell Count 4.05 M/mm3 (4.30-5.90); White Blood Cell Count 10.23 K/mm3 (4.00-11.30)
[2019-03-02 12:20] LABS: Albumin, Blood 2.3 g/dL (3.4-5.0); Albumin/Globulin Ratio 0.7 (0.8-1.8); Bilirubin, Total 0.3 mg/dL (0.1-1.0); Bun/Creatinine Ratio 12.1 (12.0-20.0); Calcium, Blood 8.5 mg/dL (8.5-10.1); Creatinine, Blood 4.54 mg/dL (0.60-1.20); Globulin, Blood 3.5 g/dL (2.2-4.0); Potassium, Blood 3.5 mmol/L (3.5-5.5); Total Protein, Blood 5.8 g/dL (6.4-8.2)
== END 2019-03-02 14:41 | disposition home or self-care (01) ==
LOC: ER 11:18
PROVIDERS: Emergency Medicine
DX: K59.00 Constipation, unspecified (principal); F32.9 Major depressive disorder, single episode, unspecified; N18.6 End stage renal disease; Z99.2 Dependence on renal dialysis; Z91.018 Allergy to other foods; Z91.040 Latex allergy status; Z88.8 Allergy status to other drugs, medicaments and biological substances; Z91.048 Other nonmedicinal substance allergy status; Z79.899 Other long term (current) drug therapy
CPT/HCPCS: 36415; 74022; 80053; 83690; 85025; 96374; 99283-25; J2405

== ENCOUNTER 2019-03-20 17:39 | Emergency (ER) | payer OTHER ==
[~2019-03-20] VITALS: Ht 188 cm; Wt 90.7 kg
[2019-03-20 19:11] LABS: BASOPHILS ABSOLUTE AUTO 0.08 K/mm3 (0.00-0.23); BASOPHILS PERCENT AUTO 1 % (0-2); EOSINOPHILS ABSOLUTE AUTO 0.07 K/mm3 (0.00-0.68); EOSINOPHILS PERCENT AUTO 1 % (0-6); Hematocrit 44.2 % (37.0-53.0); Hemoglobin 13.9 g/dL (13.5-17.5); IMMATURE GRAN ABSOLUTE AUTO 0.19 K/mm3 (0.00-0.10); IMMATURE GRAN PERCENT AUTO 2 % (0-1); LYMPHOCYTES ABSOLUTE AUTO 0.93 K/mm3 (0.84-5.20); LYMPHOCYTES PERCENT AUTO 8 % (21-46); MONOCYTES ABSOLUTE AUTO 0.66 K/mm3 (0.16-1.47); MONOCYTES PERCENT AUTO 6 % (4-13); Mean Corpuscular HGB 31.9 pg (26.0-34.0); Mean Corpuscular HGB Conc 31.4 g/dL (31.5-36.5); Mean Corpuscular Volume 101 fL (80-100); Mean Platelet Volume 9.6 fL (9.1-12.4); NEUTROPHILS ABSOLUTE AUTO 9.14 K/mm3 (1.96-9.15); NEUTROPHILS PERCENT AUTO 83 % (41-73); Platelet Count 244 K/mm3 (150-400); RDW Coefficient Variation 14.4 % (11.7-14.2); RDW Standard Deviation 54.1 fL (35.1-46.3); Red Blood Cell Count 4.36 M/mm3 (4.30-5.90); White Blood Cell Count 11.07 K/mm3 (4.00-11.30)
[2019-03-20 19:29] LABS: Albumin, Blood 1.7 g/dL (3.4-5.0); Albumin/Globulin Ratio 0.4 (0.8-1.8); Bilirubin, Total 0.2 mg/dL (0.1-1.0); Bun/Creatinine Ratio 14.2 (12.0-20.0); Creatinine, Blood 2.89 mg/dL (0.60-1.20); Globulin, Blood 4.1 g/dL (2.2-4.0); Total Protein, Blood 5.8 g/dL (6.4-8.2)
[2019-03-20] MEDS ORDERED: CITRATE OF MAG296 ML PO (21:17)
[2019-03-20] MEDS ORDERED: LIDO700A20 TOP (21:17)
[2019-03-20] MEDS ORDERED: PREG150 PO (21:17)
== END 2019-03-20 21:40 | disposition home or self-care (01) ==
LOC: ER 17:39
PROVIDERS: Physician Assistant
DX: K59.00 Constipation, unspecified (principal); G62.9 Polyneuropathy, unspecified; F32.9 Major depressive disorder, single episode, unspecified; Z79.899 Other long term (current) drug therapy
CPT/HCPCS: 36415; 74019; 80053; 83690; 85025; 96374; 99283-25; A9270-GY; J2405

== ENCOUNTER 2019-04-24 13:49 | Inpatient (IN) | payer OTHER ==
[~2019-04-24] VITALS: Ht 188 cm; Wt 98.5 kg
[~2019-04-24 13:49] MED LIST changes: +CITRATE OF MAG296 ML PO; +LIDO700A20 TOP; +PREG150 PO
[2019-04-24 14:51] LABS: BASOPHILS PERCENT AUTO 1 % (0-2); EOSINOPHILS PERCENT AUTO 12 % (0-6); Hematocrit 43.2 % (37.0-53.0); Hemoglobin 13.9 g/dL (13.5-17.5); IMMATURE GRAN ABSOLUTE AUTO 0.05 K/mm3 (0.00-0.10); IMMATURE GRAN PERCENT AUTO 1 % (0-1); LYMPHOCYTES ABSOLUTE AUTO 1.41 K/mm3 (0.84-5.20); LYMPHOCYTES PERCENT AUTO 20 % (21-46); MONOCYTES ABSOLUTE AUTO 0.64 K/mm3 (0.16-1.47); MONOCYTES PERCENT AUTO 9 % (4-13); Mean Corpuscular HGB 30.2 pg (26.0-34.0); Mean Corpuscular HGB Conc 32.2 g/dL (31.5-36.5); Mean Corpuscular Volume 94 fL (80-100); NEUTROPHILS ABSOLUTE AUTO 4.13 K/mm3 (1.96-9.15); NEUTROPHILS PERCENT AUTO 57 % (41-73); Platelet Count 282 K/mm3 (150-400); RDW Coefficient Variation 13.4 % (11.7-14.2); RDW Standard Deviation 46.2 fL (35.1-46.3); White Blood Cell Count 7.23 K/mm3 (4.00-11.30)
[2019-04-24 15:09] LABS: Albumin, Blood 1.5 g/dL (3.4-5.0); Albumin/Globulin Ratio 0.3 (0.8-1.8); Bilirubin, Total 0.2 mg/dL (0.1-1.0); Bun/Creatinine Ratio 19.4 (12.0-20.0); Calcium, Blood 8.8 mg/dL (8.5-10.1); Creatinine, Blood 2.52 mg/dL (0.60-1.20); Globulin, Blood 4.3 g/dL (2.2-4.0); Potassium, Blood 3.8 mmol/L (3.5-5.5); Total Protein, Blood 5.8 g/dL (6.4-8.2)
--- NOTE | 2019-04-24 18:48 | NUR ---
ADMISSION NOTE PT ARRIVED TO ROOM AT 1750. ADMISSION ASSESSMENT COMPLETED, TEGADERM REPLACED ON PERMICATH PER PT REQUEST TO REPLACE DRESSING. . PT TUCKED IN. ORIENTED TO ROOM AND CALL LIGHT. BED IN LOW POSITION, CALL LIGHT WITHIN REACH. WILL GIVE REPORT TO INVENTORY CHECKER NURSE WHO WILL ASSUME CARE AT THAT TIME.
--- NOTE | 2019-04-24 23:33 | NUR ---
PERMACATH REMOVED: DR. MINA IN TO SEE PT AT 2100. REMOVED L CHEST PERMACATH. PT TOLERATED PROCEDURE WELL. HOB REMAINED ELEVATED 45 DEGREES FOR [address] MINA PLACED STERI STRIPS AND GAUZE OVER INCISION ON CHEST. SECURED WITH TAPE ON BORDERS. NO BLEEDING FROM SITE. PERMACATH TIP COLLECTED FOR CULTURE. PT HAS DENIED CHEST PAIN AND SHORTNESS OF BREATH.
--- NOTE | 2019-04-25 05:09 | NUR ---
SHIFT SUMMARARY: A/OX3. FORGETFUL. UNCLEAR ABOUT HIS HOME MEDS. PT REFUSED BOTH GABAPENTIN AND LYRICA HS DOSES STATING HE WANTED TO TALK WITH DR. PORRAS PRIOR TO TAKING THEM. NEURALGIA R SIDE WORSE TONIGHT COMPARED TO NORMAL PER PT. NORCO GIVEN PER ORDERS. PT STATES NO IMPROVEMENT IN PAIN. MELATONIN ADMINISTERED AND PT HAS REMAINED ASLEEP SINCE. DRESSING OVER L CHEST D/C'D PERMACATH SITE IS CDI. PT HAS DENIED CHEST PAIN AND SHORTNESS OF BREATH. MUCH TREMORING WITH FINE MOTOR MOVEMENT. REMAINED IN BED ALL NIGHT USING URINAL TO VOID SMALL AMTS. BED LOW, CALL BUTTON EXPLAINED AND PLACED WITHIN REACH.
[2019-04-25 05:22] LABS: BASOPHILS ABSOLUTE AUTO 0.11 K/mm3 (0.00-0.23); BASOPHILS PERCENT AUTO 2 % (0-2); EOSINOPHILS PERCENT AUTO 11 % (0-6); Hematocrit 37.5 % (37.0-53.0); Hemoglobin 12.3 g/dL (13.5-17.5); IMMATURE GRAN ABSOLUTE AUTO 0.02 K/mm3 (0.00-0.10); IMMATURE GRAN PERCENT AUTO 0 % (0-1); LYMPHOCYTES ABSOLUTE AUTO 1.67 K/mm3 (0.84-5.20); LYMPHOCYTES PERCENT AUTO 26 % (21-46); MONOCYTES ABSOLUTE AUTO 0.74 K/mm3 (0.16-1.47); MONOCYTES PERCENT AUTO 11 % (4-13); Mean Corpuscular HGB 30.4 pg (26.0-34.0); Mean Corpuscular HGB Conc 32.8 g/dL (31.5-36.5); Mean Corpuscular Volume 93 fL (80-100); Mean Platelet Volume 11.2 fL (9.1-12.4); NEUTROPHILS ABSOLUTE AUTO 3.25 K/mm3 (1.96-9.15); NEUTROPHILS PERCENT AUTO 50 % (41-73); Platelet Count 246 K/mm3 (150-400); RDW Coefficient Variation 13.2 % (11.7-14.2); RDW Standard Deviation 45.2 fL (35.1-46.3); Red Blood Cell Count 4.04 M/mm3 (4.30-5.90); White Blood Cell Count 6.49 K/mm3 (4.00-11.30)
[2019-04-25 05:44] LABS: Magnesium, Blood 1.9 mg/dL (1.6-2.4)
[2019-04-25 05:45] LABS: Albumin, Blood 1.2 g/dL (3.4-5.0); Albumin/Globulin Ratio 0.3 (0.8-1.8); Bilirubin, Total 0.3 mg/dL (0.1-1.0); Calcium, Blood 8.2 mg/dL (8.5-10.1); Creatinine, Blood 2.4 mg/dL (0.60-1.20); Globulin, Blood 3.6 g/dL (2.2-4.0); Potassium, Blood 3.6 mmol/L (3.5-5.5); Total Protein, Blood 4.8 g/dL (6.4-8.2)
[2019-04-25] MEDS ORDERED: AMIT10 PO (10:49)
[2019-04-25] MEDS ORDERED: Prozac20 MG PO (10:51)
[2019-04-25] MEDS ORDERED: FURO80 PO (10:52)
[2019-04-25] MEDS ORDERED: OXYC5 PO (10:55)
[2019-04-25] MEDS ORDERED: POTA10T PO (10:56)
[2019-04-25] MEDS ORDERED: TRAM50 PO (10:57)
[2019-04-25] MEDS ORDERED: PREG75 PO (10:57)
--- NOTE | 2019-04-25 15:20 | NUR ---
SHIFT SUMMARY PT IS A/O X 4 WITH C/O PAIN WITH MOVEMENT OF HIS ARMS R/T THE REMOVAL OF THE DIALYSIS PORT YESTERDAY ON HIS LEFT CHEST WALL. THERE IS A DRESSING COVERING THE SITE AND IT IS C.D.I. PT IS VOIDING IN HIS URINAL AT THE BEDSIDE. MICROBIOLOGY CALLED WITH RESULTS FROM THE CATHATER TIP AND REPORTED THAT HIS BLOOD CULTURES ARE POSITIVE WITH GRAM POSITIVE COCCI AND CLUSTERS. THIS WAS CALLED TO DR REDMAN @ 9888 AND NEW NEW ORDERS WERE GIVEN. IV FLUIDS AND ABO WERE INFUSED ORDERED WITH NO ADVERSE REACTIONS OBSERVED. THE PT IS ABLE TO MAKE HIS NEEDS KNOWN AND CALLS FOR HELP WHEN NEEDED.
[2019-04-25 15:40] LABS: Vancomycin, Random 11.7 ug/mL
--- NOTE | 2019-04-26 04:04 | NUR ---
SHIFT SUMMARY PATIENT HAD NO ACUTE CHANGES OBSERVED. AXO X3 AND BEDREST. USES URINAL AT BEDSIDE. DRESSING MONICA C/D/I FROM DIALYSIS PORT. PIV REMAINS INTACT. ROOM AIR. VSS/AFBERILE. DENIES PAIN, SOB, AND N/V. ASKED FOR SLEEP AIDE AND MELATONIN 3MG GIVEN PER EMAR. COOPERATIVE WITH CARE. CALL LIGHT IN REACH. BED IN LOWEST POSITION. WILL CONTINUE TO MONITOR UNTIL DAY SHIFT NURSE ASSUMES CARE.
[2019-04-26 05:43] LABS: BASOPHILS ABSOLUTE AUTO 0.09 K/mm3 (0.00-0.23); BASOPHILS PERCENT AUTO 1 % (0-2); EOSINOPHILS ABSOLUTE AUTO 0.93 K/mm3 (0.00-0.68); EOSINOPHILS PERCENT AUTO 14 % (0-6); Hematocrit 37.9 % (37.0-53.0); Hemoglobin 12.2 g/dL (13.5-17.5); IMMATURE GRAN ABSOLUTE AUTO 0.03 K/mm3 (0.00-0.10); IMMATURE GRAN PERCENT AUTO 0 % (0-1); LYMPHOCYTES ABSOLUTE AUTO 1.66 K/mm3 (0.84-5.20); LYMPHOCYTES PERCENT AUTO 25 % (21-46); MONOCYTES ABSOLUTE AUTO 0.77 K/mm3 (0.16-1.47); MONOCYTES PERCENT AUTO 12 % (4-13); Mean Corpuscular HGB Conc 32.2 g/dL (31.5-36.5); Mean Corpuscular Volume 93 fL (80-100); Mean Platelet Volume 10.8 fL (9.1-12.4); NEUTROPHILS ABSOLUTE AUTO 3.21 K/mm3 (1.96-9.15); NEUTROPHILS PERCENT AUTO 48 % (41-73); Platelet Count 254 K/mm3 (150-400); RDW Coefficient Variation 13.1 % (11.7-14.2); RDW Standard Deviation 45.1 fL (35.1-46.3); Red Blood Cell Count 4.07 M/mm3 (4.30-5.90); White Blood Cell Count 6.69 K/mm3 (4.00-11.30)
[2019-04-26 06:09] LABS: Albumin, Blood 1.2 g/dL (3.4-5.0); Anion Gap 7 mmol/L (6-16); Blood Urea Nitrogen 41 mg/dL (8-24); Bun/Creatinine Ratio 16.8 (12.0-20.0); CO2, Blood 24 mmol/L (21-32); Calcium, Blood 8.5 mg/dL (8.5-10.1); Chloride, Blood 109 mmol/L (98-108); Creatinine, Blood 2.44 mg/dL (0.60-1.20); Glomerular Filtration Rate 28 (60-); Glucose, Blood 103 mg/dL (70-99); Phosphorus, Blood 3.2 mg/dL (2.5-4.9); Potassium, Blood 3.8 mmol/L (3.5-5.5); Sodium, Blood 140 mmol/L (136-145)
[2019-04-26 15:03] LABS: Vancomycin, Random 15.3 ug/mL
--- NOTE | 2019-04-26 15:15 | NUR ---
SHIFT SUMMARY PT REMAINS A/O X 4 WITH NO C/O PAIN. SCHEDULED MEDS HAVE BEEN EFFECTIVE IN MANAGING HIS DISCOMFORT IN HIS ARMS AND CHEST. DRESSING TO LEFT CHEST WALL IS C.D.I. PT WAS ASSISTED TO TAKE A SHOWER THIS MORNING. PT IS CONCERNED ABOUT HIS LACK OF BM, DR BRENNAN WAS NOTIFIED SINCE PT REFUSED THE MAG CITRATE X 2 AND GAVE ORDERS FOR MIRALAX WHICH PTTOOK WITH NO ISSUE. NO BM REPORTED OF NOW. PT HAS BEEN RESTING IN BED AND IS ABLE TO MAKE HIS NEEDS KNOWN. HE CALLS FOR HELP WHEN NEEDED.
--- NOTE | 2019-04-27 05:05 | NUR ---
SHIFT SUMMARY DIAGNOSED W/VASCULAR CATHETER INFECTION. DR MINA REMOVED. FULL CODE. NORMALLY ON DIALYSIS 3 X'S/WEEK. RENAL DIET, RA, 1 ASSIST W/FWW. HX: ESRD, HYPERPARATHYROIDISM, HTN, DEPRESSION, HYPERLIPIDEMIA, SHINGLES, RESTLESS LEG SYNDROME. A&O X4, RA. PLAN IS FOR IV ANTIBIOTICS.
[2019-04-27 05:13] LABS: BASOPHILS PERCENT AUTO 2 % (0-2); EOSINOPHILS ABSOLUTE AUTO 0.94 K/mm3 (0.00-0.68); EOSINOPHILS PERCENT AUTO 14 % (0-6); Hematocrit 37.9 % (37.0-53.0); Hemoglobin 12.2 g/dL (13.5-17.5); IMMATURE GRAN ABSOLUTE AUTO 0.03 K/mm3 (0.00-0.10); IMMATURE GRAN PERCENT AUTO 0 % (0-1); LYMPHOCYTES ABSOLUTE AUTO 2.02 K/mm3 (0.84-5.20); LYMPHOCYTES PERCENT AUTO 29 % (21-46); MONOCYTES ABSOLUTE AUTO 0.79 K/mm3 (0.16-1.47); MONOCYTES PERCENT AUTO 12 % (4-13); Mean Corpuscular HGB Conc 32.2 g/dL (31.5-36.5); Mean Corpuscular Volume 93 fL (80-100); Mean Platelet Volume 11.3 fL (9.1-12.4); NEUTROPHILS ABSOLUTE AUTO 2.99 K/mm3 (1.96-9.15); NEUTROPHILS PERCENT AUTO 44 % (41-73); Platelet Count 244 K/mm3 (150-400); RDW Coefficient Variation 13.2 % (11.7-14.2); RDW Standard Deviation 45.4 fL (35.1-46.3); Red Blood Cell Count 4.07 M/mm3 (4.30-5.90); White Blood Cell Count 6.87 K/mm3 (4.00-11.30)
[2019-04-27 05:34] LABS: Albumin, Blood 1.2 g/dL (3.4-5.0); Anion Gap 6 mmol/L (6-16); Blood Urea Nitrogen 42 mg/dL (8-24); Bun/Creatinine Ratio 17.1 (12.0-20.0); CO2, Blood 25 mmol/L (21-32); Calcium, Blood 8.6 mg/dL (8.5-10.1); Chloride, Blood 109 mmol/L (98-108); Creatinine, Blood 2.46 mg/dL (0.60-1.20); Glomerular Filtration Rate 28 (60-); Glucose, Blood 89 mg/dL (70-99); Phosphorus, Blood 4.6 mg/dL (2.5-4.9); Potassium, Blood 4.2 mmol/L (3.5-5.5); Sodium, Blood 140 mmol/L (136-145)
[2019-04-27 14:07] LABS: Vancomycin, Random 10.2 ug/mL
--- NOTE | 2019-04-27 17:24 | NUR ---
SUMMARY- PT ALERT AND ORIENTED. DRESSING TO LCW INTACT WITH NO FURTHER GROWTH OF REDNESS OUTSIDE OF BOUNDRY DRAWN. GFR REMAINS STABLE SINCE HOSP ADMIT. TOLERATING FLUIDS, ACTUALLY WANTING FAR MORE FLUIDS THAT STAFF WILLING TO GIVE. PT THINKS HE NEEDS TO "FLUSH HIS KIDNEYS". RN EXPLAINED HIS KIDNEYS HAVING A HARD TIME KEEPING UP SO TO CONSUME MODERATE AMOUNTS OF FLUIDS. PT ON MIDODRINE, AND MAINTAINING BP. PT AMBULANTE IN THE LYON MULT TIMES TODAY WITH CANE WITH STAFF AND AT TIMES INDEPENDANT. STEADY ON FEET. HAD MIRILAX THIS AM, FEELING HE NEEDS TO HAVE A BM. WILL F/T AND PASS INFO TO ONCOMING RN.
--- NOTE | 2019-04-27 19:58 | NUR ---
PT RESTING COMFORTABLY IN BED; LEFT UPPER CHEST DRESSING LOOSE AND PEELING OFF--THIS NURSE REMOVED DRESSING WITH OLD CATHETER INSERTION SITE SCABBED OVER, SURROUNDING LEFT CHEST CATHETER SITE WARM AND RED TO TOUCH AROUND BREAST TO LEFT SIDE OF NECK; ABLE TO TURN HEAD LEFT AND RIGHT, UP AND DOWN.
--- NOTE | 2019-04-28 04:15 | NUR ---
SHIFT SUMMARY: 64 Y/O MALE RESTED COMFORTABLY ALL SHIFT; C/O GENERALIZED PAIN RATED 7/10 WITH NORCO 5/325MG PO X 1 GIVEN WITH RELIEF FELT; LEFT UPPER CHEST REDDENED AND WARM TO TOUCH AT OLD DIALYSIS PORT SITE; ALERT AND ORIENTED X 4; UP VIA CANE TO BATHROOM; BED LOW POSITION WITH CALL LIGHT AT SIDE.
[2019-04-28 05:26] LABS: BASOPHILS ABSOLUTE AUTO 0.14 K/mm3 (0.00-0.23); BASOPHILS PERCENT AUTO 2 % (0-2); EOSINOPHILS ABSOLUTE AUTO 1.06 K/mm3 (0.00-0.68); EOSINOPHILS PERCENT AUTO 11 % (0-6); Hematocrit 39.7 % (37.0-53.0); Hemoglobin 12.6 g/dL (13.5-17.5); IMMATURE GRAN ABSOLUTE AUTO 0.07 K/mm3 (0.00-0.10); IMMATURE GRAN PERCENT AUTO 1 % (0-1); LYMPHOCYTES ABSOLUTE AUTO 2.11 K/mm3 (0.84-5.20); LYMPHOCYTES PERCENT AUTO 23 % (21-46); MONOCYTES PERCENT AUTO 10 % (4-13); Mean Corpuscular HGB 29.9 pg (26.0-34.0); Mean Corpuscular HGB Conc 31.7 g/dL (31.5-36.5); Mean Corpuscular Volume 94 fL (80-100); Mean Platelet Volume 11.1 fL (9.1-12.4); NEUTROPHILS ABSOLUTE AUTO 5.05 K/mm3 (1.96-9.15); NEUTROPHILS PERCENT AUTO 54 % (41-73); Platelet Count 251 K/mm3 (150-400); RDW Coefficient Variation 13.3 % (11.7-14.2); RDW Standard Deviation 45.6 fL (35.1-46.3); Red Blood Cell Count 4.22 M/mm3 (4.30-5.90); White Blood Cell Count 9.33 K/mm3 (4.00-11.30)
[2019-04-28 05:51] LABS: Albumin, Blood 1.2 g/dL (3.4-5.0); Anion Gap 5 mmol/L (6-16); Blood Urea Nitrogen 39 mg/dL (8-24); Bun/Creatinine Ratio 15.4 (12.0-20.0); CO2, Blood 25 mmol/L (21-32); Calcium, Blood 8.6 mg/dL (8.5-10.1); Chloride, Blood 110 mmol/L (98-108); Creatinine, Blood 2.53 mg/dL (0.60-1.20); Glomerular Filtration Rate 27 (60-); Glucose, Blood 90 mg/dL (70-99); Phosphorus, Blood 4.8 mg/dL (2.5-4.9); Potassium, Blood 4.5 mmol/L (3.5-5.5); Sodium, Blood 140 mmol/L (136-145)
[2019-04-28] MEDS ORDERED: Bumetanide2 MG PO (10:32)
[2019-04-28] MEDS ORDERED: PREG150 PO (10:33)
[2019-04-28] MEDS ORDERED: Florastor250 MG PO (10:33)
[2019-04-28] MEDS ORDERED: CEPH500 PO (10:34)
--- NOTE | 2019-04-28 14:25 | NUR ---
Discharge Summary A/Ox4, pt d/c to home. Reviewed discharge paperwork and educational material with patient, pt had no questions at this time. Meds faxed to [facility]. Escorted by NATURAL SCIENCES PROFESSOR via w/c with all belongings sent home. IV removed. [facility] to call patient for f/u appointment, pt to see Analytic Manager as soon as discharged.
== END 2019-04-28 14:00 | disposition home or self-care (01) | DRG 314 ==
LOC: ER 13:49 → MEDS 17:38 → ENPENDDIS 04-28 11:33 → MEDS 04-28 14:00
PROVIDERS: Nurse Practitioner Acute Care; Pharmacist; Physician Assistant; ADMIT Family Medicine
DX: T82.7XXA Infection and inflammatory reaction due to other cardiac and vascular devices, implants and grafts, initial encounter (principal); N18.6 End stage renal disease; I12.0 Hypertensive chronic kidney disease with stage 5 chronic kidney disease or end stage renal disease; N25.81 Secondary hyperparathyroidism of renal origin; N17.9 Acute kidney failure, unspecified; L03.313 Cellulitis of chest wall; D63.1 Anemia in chronic kidney disease; E87.6 Hypokalemia; I95.1 Orthostatic hypotension; G62.9 Polyneuropathy, unspecified; F32.9 Major depressive disorder, single episode, unspecified; E88.09 Other disorders of plasma-protein metabolism, not elsewhere classified; R80.9 Proteinuria, unspecified; Z88.8 Allergy status to other drugs, medicaments and biological substances; Z91.040 Latex allergy status; Z99.2 Dependence on renal dialysis
CPT/HCPCS: 36415; 71045; 76604; 80053; 80069; 80202; 82947; 83605; 83735; 84100; 85025; 85730; 87040; 87070; 90686; 93005; 93010; 99284-25; J1956; J2543; J3370; J7050

== ENCOUNTER 2019-05-03 07:56 | Inpatient (IN) | payer OTHER ==
[~2019-05-03] VITALS: Ht 188 cm; Wt 100.8 kg
[~2019-05-03 07:56] MED LIST changes: +AMIT10 PO; +CEPH500 PO; +Florastor250 MG PO; +OXYC5 PO; +PREG75 PO; +Prozac20 MG PO
[2019-05-03 08:49] LABS: Source, Urine Clean Catch
[2019-05-03 08:54] LABS: BASOPHILS ABSOLUTE AUTO 0.12 K/mm3 (0.00-0.23); BASOPHILS PERCENT AUTO 2 % (0-2); EOSINOPHILS ABSOLUTE AUTO 0.27 K/mm3 (0.00-0.68); EOSINOPHILS PERCENT AUTO 4 % (0-6); Hematocrit 35.3 % (37.0-53.0); Hemoglobin 11.4 g/dL (13.5-17.5); IMMATURE GRAN ABSOLUTE AUTO 0.05 K/mm3 (0.00-0.10); IMMATURE GRAN PERCENT AUTO 1 % (0-1); LYMPHOCYTES ABSOLUTE AUTO 0.88 K/mm3 (0.84-5.20); LYMPHOCYTES PERCENT AUTO 14 % (21-46); MONOCYTES ABSOLUTE AUTO 0.82 K/mm3 (0.16-1.47); MONOCYTES PERCENT AUTO 13 % (4-13); Mean Corpuscular HGB Conc 32.3 g/dL (31.5-36.5); Mean Corpuscular Volume 93 fL (80-100); Mean Platelet Volume 10.9 fL (9.1-12.4); NEUTROPHILS ABSOLUTE AUTO 4.33 K/mm3 (1.96-9.15); NEUTROPHILS PERCENT AUTO 67 % (41-73); Platelet Count 192 K/mm3 (150-400); RDW Coefficient Variation 13.7 % (11.7-14.2); RDW Standard Deviation 46.6 fL (35.1-46.3); White Blood Cell Count 6.47 K/mm3 (4.00-11.30)
[2019-05-03 08:54] LABS: Bilirubin, Urine Neg (Neg); Blood, Urine 2+ (Neg); Glucose Qualitative, Urine Neg (Neg); Ketones, Urine Neg (Neg); Leukocyte Esterase, Urine Neg (Neg); Nitrite, Urine Neg (Neg); Protein, Urine 4+ (Neg); Urobilinogen, Urine NORM (Normal)
[2019-05-03 09:08] LABS: Appearance, Urine Clear (Clear); Color, Urine Yellow (P-Yellow)
[2019-05-03 09:09] LABS: Bacteria Not Seen /hpf; Red Blood Cells, Urine 0-2 /hpf (0-2); Squamous Epithelial Cells Not Seen /hpf (Few); White Blood Cells, Urine 0-2 /hpf (0-5)
[2019-05-03 09:11] LABS: Hyaline Casts 0-2 /lpf (0-2)
[2019-05-03 09:14] LABS: Alanine Aminotransfer (ALT/SGP 13 U/L (12-78); Albumin, Blood 1.2 g/dL (3.4-5.0); Albumin/Globulin Ratio 0.3 (0.8-1.8); Alk Phos 65 U/L (50-136); Anion Gap 8 mmol/L (6-16); Aspartate Aminotrans (AST/SGOT 19 U/L (12-37); Bilirubin, Total 0.2 mg/dL (0.1-1.0); Blood Urea Nitrogen 39 mg/dL (8-24); Bun/Creatinine Ratio 17.6 (12.0-20.0); CO2, Blood 20 mmol/L (21-32); Calcium, Blood 7.9 mg/dL (8.5-10.1); Chloride, Blood 111 mmol/L (98-108); Creatinine, Blood 2.21 mg/dL (0.60-1.20); Globulin, Blood 3.8 g/dL (2.2-4.0); Glomerular Filtration Rate 32 (60-); Glucose, Blood 97 mg/dL (70-99); Potassium, Blood 3.9 mmol/L (3.5-5.5); Sodium, Blood 139 mmol/L (136-145); Troponin I <0.015 ng/mL (0.000-0.040)
[2019-05-03] MEDS ORDERED: LACT PO (09:29)
[2019-05-03] MEDS ORDERED: TRAM50 PO (09:30)
[2019-05-03 11:48] LABS: CPK Creatine Kinase 127 U/L (39-308)
[2019-05-03 11:51] LABS: Creatine Kinase MB <1.0 ng/mL (0.0-3.6); Creatine Kinase MB Index Unable to Calculate (0.0-4.0)
[2019-05-03] MEDS ORDERED: FURO80 PO (11:54)
[2019-05-03] MEDS ORDERED: AMIT10 PO (11:57)
--- NOTE | 2019-05-03 12:30 | NUR ---
ASSUMED CARE OF PATIENT PT ADMITTED FROM ER TO ROOM 311 @ 1225. PT ARRIVED VIA STRETCHER, A/OX3, ABLE TO FOLLOW COMMANDS. USES URINAL APPROPRIATELY AND INDEPENDENTLY AT BEDSIDE. PT ORIENTED TO ROOM, CALL SYSTEM, AND STAFF. WARM BLANKETS PROVIDED. BED IN LOWEST POSITION. PT SETTLED TO ROOM.
--- NOTE | 2019-05-03 13:26 | NUR ---
US ON JUGULARS PER REPORT FROM US SUPERVISOR FIBERGLASS BOAT ASSEMBLY, PT HAS THROMBUS ON R JUGULAR, HIGH FLOW VELOCITY ON L JUGULAR. ISTRATE INFORMED AND ORDERS FOR PATIENT TO REMAIN BEDREST AND LYING FLAT UNTIL REPORT IS INTERPRETED.
[2019-05-03 15:26] LABS: International Normalized Ratio 1.02; Prothrombin Time Results 10.9 Sec (9.7-11.5)
--- NOTE | 2019-05-03 17:24 | NUR ---
Per Dr. Armenta, Bumex daily and Albumin daily. electric motor control assembler Sally received orders and placed them in EMAR.
--- NOTE | 2019-05-03 19:18 | NUR ---
Shift Summary A/OX4, patient has been cooperative, uses urinal independently at bedside. Medicated for nerve pain 11/23 x 1, according to patient, it did not do anything for the pain. Patient denies SOB, dizziness. Pt has been tired and "just want to rest," refused to work with therapy d/t this. No other acute concerns at this time.
--- NOTE | 2019-05-04 04:38 | NUR ---
SHIFT SUMMARY PT HAS RESTED ON AND OFF THIS SHIFT. HE COMPLAINS OF CHRONIC NERVE PAIN POST SHINGLES INFECTION IN HIS CHEST/BACK. HE ALSO COMPLAINS OF NASAL CONGESTION AND BURNING IN BOTH NOSTRILS. PT GIVEN NASAL SPARY FOR RELIEF AND MEDICATED FOR PAIN WITH OXYCODONE. PT REPORTS NOT FEELING WELL. PT WITH LOW GRADE TEMP, BUT REFUSES ANTIPYRETICS. HE HAS BEEN INDEPENDENT AT THE BEDSIDE. PT STATES HE DOES NOT WANT TO TAKE COUMADIN IN FEAR THAT IT WILL CAUSE A BRAIN BLEED AND DOES NOT LIKE THE BRUISES IT HAS GIVEN HIM. PT EDUCATED ON THE REASON WHY HE WAS STARTED ON COUMADIN. I NOTIFIED HIM THAT I WOULD RELAY THIS INFORMATION TO THE DAYSHIFT NURSE SO THAT IT COULD BE DISCUSSED WITH ATTENDING. PT APPEARS GENERALLY ANXIOUS AT BASELINE, AND HAS A TREMOR IN BOTH HANDS. AFFECT IS FLAT AND WITHDRAWN. THERE HAVE BEEN NO ACUTE CHANGES FROM BASELINE ASSESSMENT. BED IN LOWEST POSITION, CALL LIGHT LOLISHTIN REACH. WILL CONTINUE TO MONITOR AND REPORT TO ONCOMING RN.
[2019-05-04 08:58] LABS: Hematocrit 34.4 % (37.0-53.0); Hemoglobin 11.1 g/dL (13.5-17.5); Mean Corpuscular HGB 30.2 pg (26.0-34.0); Mean Corpuscular HGB Conc 32.3 g/dL (31.5-36.5); Mean Corpuscular Volume 94 fL (80-100); Mean Platelet Volume 10.9 fL (9.1-12.4); Platelet Count 149 K/mm3 (150-400); RDW Coefficient Variation 13.4 % (11.7-14.2); RDW Standard Deviation 45.9 fL (35.1-46.3); Red Blood Cell Count 3.67 M/mm3 (4.30-5.90); White Blood Cell Count 5.24 K/mm3 (4.00-11.30)
[2019-05-04 09:20] LABS: Albumin, Blood 1.3 g/dL (3.4-5.0); Anion Gap 8 mmol/L (6-16); Blood Urea Nitrogen 32 mg/dL (8-24); Bun/Creatinine Ratio 14.2 (12.0-20.0); CO2, Blood 21 mmol/L (21-32); Calcium, Blood 7.8 mg/dL (8.5-10.1); Chloride, Blood 108 mmol/L (98-108); Creatinine, Blood 2.26 mg/dL (0.60-1.20); Glomerular Filtration Rate 31 (60-); Glucose, Blood 143 mg/dL (70-99); Magnesium, Blood 1.6 mg/dL (1.6-2.4); Phosphorus, Blood 3.8 mg/dL (2.5-4.9); Potassium, Blood 3.3 mmol/L (3.5-5.5); Sodium, Blood 137 mmol/L (136-145); Troponin I <0.015 ng/mL (0.000-0.040)
[2019-05-04 09:33] LABS: International Normalized Ratio 1.12; Prothrombin Time Results 11.9 Sec (9.7-11.5)
[2019-05-04 15:28] LABS: Protein, Urine Quantitative 938.4 mg/dL (0.0-11.9)
--- NOTE | 2019-05-04 17:06 | NUR ---
ECHOCARDIOGRAM COMPLETED
--- NOTE | 2019-05-04 18:50 | NUR ---
Shift Summary A/Ox4, pt was up with walker x 1 today but mostly stayed in bed. PT attempted to work with patient. Medicated for 12/24 pain x 1 r/t "shingles," reassessment reveals 10/23. Pt has called consistently t/o day for pain meds. Pt mentions that he feels he is becoming addicted to the pain meds so he does not want anymore narcotics, just Tylenol. No acute changes with patient status at this time. Will continue to monitor.
[2019-05-05 04:35] LABS: BASOPHILS PERCENT AUTO 2 % (0-2); EOSINOPHILS ABSOLUTE AUTO 0.46 K/mm3 (0.00-0.68); EOSINOPHILS PERCENT AUTO 8 % (0-6); Hematocrit 35.8 % (37.0-53.0); Hemoglobin 11.5 g/dL (13.5-17.5); IMMATURE GRAN ABSOLUTE AUTO 0.04 K/mm3 (0.00-0.10); IMMATURE GRAN PERCENT AUTO 1 % (0-1); LYMPHOCYTES ABSOLUTE AUTO 1.34 K/mm3 (0.84-5.20); LYMPHOCYTES PERCENT AUTO 23 % (21-46); MONOCYTES ABSOLUTE AUTO 0.78 K/mm3 (0.16-1.47); MONOCYTES PERCENT AUTO 13 % (4-13); Mean Corpuscular HGB 29.6 pg (26.0-34.0); Mean Corpuscular HGB Conc 32.1 g/dL (31.5-36.5); Mean Corpuscular Volume 92 fL (80-100); Mean Platelet Volume 10.8 fL (9.1-12.4); NEUTROPHILS ABSOLUTE AUTO 3.14 K/mm3 (1.96-9.15); NEUTROPHILS PERCENT AUTO 54 % (41-73); Platelet Count 180 K/mm3 (150-400); RDW Coefficient Variation 13.5 % (11.7-14.2); RDW Standard Deviation 45.4 fL (35.1-46.3); Red Blood Cell Count 3.89 M/mm3 (4.30-5.90); White Blood Cell Count 5.86 K/mm3 (4.00-11.30)
[2019-05-05 04:49] LABS: International Normalized Ratio 1.39; Prothrombin Time Results 14.6 Sec (9.7-11.5)
[2019-05-05 04:53] LABS: Magnesium, Blood 1.9 mg/dL (1.6-2.4)
[2019-05-05 04:54] LABS: Albumin, Blood 1.2 g/dL (3.4-5.0); Anion Gap 8 mmol/L (6-16); Blood Urea Nitrogen 34 mg/dL (8-24); CO2, Blood 24 mmol/L (21-32); Calcium, Blood 8.3 mg/dL (8.5-10.1); Chloride, Blood 107 mmol/L (98-108); Creatinine, Blood 2.26 mg/dL (0.60-1.20); Glomerular Filtration Rate 31 (60-); Glucose, Blood 78 mg/dL (70-99); Phosphorus, Blood 4.8 mg/dL (2.5-4.9); Potassium, Blood 3.5 mmol/L (3.5-5.5); Sodium, Blood 139 mmol/L (136-145)
--- NOTE | 2019-05-05 04:54 | NUR ---
SHIFT SUMMARY NO ACUTE CHANGES THIS SHIFT. PT REMAINED IN BED THROUGHOUT THE NIGHT. PT REPORTS THAT HE FEELS GENERALLY "SICK". PT DOES HAVE NOSE CONGESTION. MEDICATED X 1 WITH ORDERED NASAL SPRAY. PT APPEARED TO SLEEP WELL FOLLOWING. PT STATED THAT HE DOES NOT WANT TO TAKE ANY MORE NARCOTICS AND BELIEVES THAT HE IS BECOMING "ADDICTED" TO THEM. TYLENOL GIVEN FOR PAIN. PT USED URINAL INDEPENDENTLY AT THE BEDSIDE. VITAL SIGNS STABLE. PT HAD UNEVENTFUL NIGHT. WILL CONTINUE TO MONITOR AND REPORT TO DAY RN.
[2019-05-05] MEDS ORDERED: ACET325 PO (18:30)
[2019-05-05] MEDS ORDERED: XARELTO15 MG PO (18:30)
[2019-05-05] MEDS ORDERED: Florastor250 MG PO (18:31)
[2019-05-05] MEDS ORDERED: BISA10S PR (18:31)
[2019-05-05] MEDS ORDERED: POTA10T PO (18:32)
--- NOTE | 2019-05-05 19:25 | NUR ---
SHIFT SUMMARY. 1729 PT REQUESTED TO BE D/C'D HAS HE HAS APPOINTMENT TOMORROW. DR. KIRBY NOTIFIED. 1914 PT DISHCARGED HOME VIA PERSONAL VEHICLE. PT ESCORTED TO VEHICLE BY THIS RN VIA W/C. IV REMOVED. D/C PAPERWORK REVIEWED WITH PT AND COPY PROVIDED. NEW RX FAXED TO [facility]. PT GIVEN COUMADIN 5MG PO PRIOR TO D/C. PT INSTRUCTED TO START ANTICOAGULATION TOMORROW, IMPORTANCE EMPHASIZED.
== END 2019-05-05 19:15 | disposition home or self-care (01) | DRG 300 ==
LOC: ER 07:56 → MEDS 11:13
PROVIDERS: Emergency Medicine; Internal Medicine Nephrology; Physician Assistant; ADMIT Family Medicine
PROC: 5A1D70Z Performance of Urinary Filtration, Intermittent, Less than 6 Hours Per Day (ICD-10-PCS; principal; 2019-05-05)
DX: I82.621 Acute embolism and thrombosis of deep veins of right upper extremity (principal); N04.9 Nephrotic syndrome with unspecified morphologic changes; N17.9 Acute kidney failure, unspecified; N18.4 Chronic kidney disease, stage 4 (severe); E88.09 Other disorders of plasma-protein metabolism, not elsewhere classified; E66.9 Obesity, unspecified; I12.9 Hypertensive chronic kidney disease with stage 1 through stage 4 chronic kidney disease, or unspecified chronic kidney disease; E87.6 Hypokalemia; D63.1 Anemia in chronic kidney disease
CPT/HCPCS: 36415; 70450; 71046; 80053; 80069; 81001; 81050; 82550; 82553; 83735; 83880; 84156; 84484; 85025; 85027; 85610; 90670; 93005; 93010; 93308; 93321; 93880; 96372; 96374; 97116; 97161; 99285-25; A9270; G0378; J1650; J7050; P9041; P9046

== ENCOUNTER 2020-09-14 03:22 | Observation (INO) | payer OTHER, MEDICARE ==
[~2020-09-14] VITALS: Ht 188 cm; Wt 126.0 kg
[~2020-09-14 03:22] MED LIST changes: +ACET325 PO; +BISA10S PR; +XARELTO15 MG PO
[2020-09-14 04:08] LABS: Hematocrit 40.9 % (37.0-53.0); Hemoglobin 13.5 g/dL (13.5-17.5); Mean Corpuscular Volume 91 fL (80-100); Mean Platelet Volume 9.7 fL (9.1-12.4); Platelet Count 230 K/mm3 (150-400); RDW Coefficient Variation 14.7 % (11.7-14.2); RDW Standard Deviation 49.2 fL (35.1-46.3); White Blood Cell Count 12.81 K/mm3 (4.00-11.30)
[2020-09-14 04:28] LABS: BAND PERCENT MAN 1 % (0-8); BASOPHILS PERCENT MAN 0 % (0-2); EOSINOPHILS ABSOLUTE MAN 0.25 K/mm3 (0.00-0.68); EOSINOPHILS PERCENT MAN 2 % (0-6); LYMPHOCYTES PERCENT MAN 18 % (21-46); METAMYELOCYTE ABSOLUTE MAN 0.12 K/mm3 (0.00-0.00); METAMYELOCYTE PERCENT MAN 1 % (0-0); MONOCYTES ABSOLUTE MAN 1.15 K/mm3 (0.16-1.47); MONOCYTES PERCENT MAN 9 % (4-13); MYELOCYTE ABSOLUTE MAN 0.51 K/mm3 (0.00-0.00); MYELOCYTE PERCENT MAN 4 % (0-0); NEUTROPHILS ABSOLUTE MAN 8.45 K/mm3 (1.96-9.15); SEG NEUTROPHILS PERCENT MAN 65 % (41-73); TOTAL CELLS COUNTED 100
[2020-09-14 04:31] LABS: Albumin, Blood 1.4 g/dL (3.4-5.0); Albumin/Globulin Ratio 0.5 (0.8-1.8); Bilirubin, Total 0.3 mg/dL (0.1-1.0); Bun/Creatinine Ratio 21.9 (12.0-20.0); Calcium, Blood 7.7 mg/dL (8.5-10.1); Creatinine, Blood 1.69 mg/dL (0.60-1.20); Globulin, Blood 3.1 g/dL (2.2-4.0); Potassium, Blood 3.3 mmol/L (3.5-5.5); Total Protein, Blood 4.5 g/dL (6.4-8.2); Troponin I 0.03 ng/mL (0.000-0.040)
[2020-09-14] MEDS ORDERED: FENO48 PO (09:57)
[2020-09-14] MEDS ORDERED: ATOR10 PO (09:57)
--- NOTE | 2020-09-14 10:00 | NUR ---
PT ARRIVED TO ROOM 313 FROM ED. ABLE TO TRANSFER SELF TO BED AND INITIAL MED LIST COMPLETED. ORIENTED TO ROOM AND CALL BUTTON.
--- NOTE | 2020-09-14 16:33 | NUR ---
SHIFT SUMMARY PT UP TO BATHROOM INDEPENDENTLY. REPORTS SOB WITH ACTIVITY DUE TO INCREASED FLUID RETENTION IN ABDOMEN. HAS GENERALIZED EDEMA. VOIDING APPROX 100-200ML AT A TIME. URINE APPEARS CLEAR. REPORTS BEING HUNGRY AND ASKING FOR SNACK FREQUENTLY.
[2020-09-15 04:35] LABS: BASOPHILS ABSOLUTE AUTO 0.04 K/mm3 (0.00-0.23); BASOPHILS PERCENT AUTO 1 % (0-2); EOSINOPHILS PERCENT AUTO 4 % (0-6); Hematocrit 36.7 % (37.0-53.0); Hemoglobin 12.3 g/dL (13.5-17.5); IMMATURE GRAN ABSOLUTE AUTO 0.36 K/mm3 (0.00-0.10); IMMATURE GRAN PERCENT AUTO 4 % (0-1); LYMPHOCYTES ABSOLUTE AUTO 1.54 K/mm3 (0.84-5.20); LYMPHOCYTES PERCENT AUTO 19 % (21-46); MONOCYTES PERCENT AUTO 10 % (4-13); Mean Corpuscular HGB 30.4 pg (26.0-34.0); Mean Corpuscular HGB Conc 33.5 g/dL (31.5-36.5); Mean Corpuscular Volume 91 fL (80-100); Mean Platelet Volume 9.6 fL (9.1-12.4); NEUTROPHILS ABSOLUTE AUTO 5.22 K/mm3 (1.96-9.15); NEUTROPHILS PERCENT AUTO 63 % (41-73); Platelet Count 179 K/mm3 (150-400); RDW Coefficient Variation 14.6 % (11.7-14.2); RDW Standard Deviation 48.3 fL (35.1-46.3); Red Blood Cell Count 4.05 M/mm3 (4.30-5.90); White Blood Cell Count 8.26 K/mm3 (4.00-11.30)
[2020-09-15 04:55] LABS: Albumin, Blood 1.4 g/dL (3.4-5.0); Albumin/Globulin Ratio 0.5 (0.8-1.8); Bilirubin, Total 0.3 mg/dL (0.1-1.0); Bun/Creatinine Ratio 23.2 (12.0-20.0); Calcium, Blood 7.5 mg/dL (8.5-10.1); Creatinine, Blood 1.42 mg/dL (0.60-1.20); Globulin, Blood 2.8 g/dL (2.2-4.0); Potassium, Blood 3.2 mmol/L (3.5-5.5); Total Protein, Blood 4.2 g/dL (6.4-8.2)
--- NOTE | 2020-09-15 05:25 | NUR ---
SHIFT SUMMARY PT HAS RESTED MOST OF THE NIGHT. PT HAS BEEN RECEIVING IV BUMEX FOR FLUID OVERLOAD. PT DOES NOT HAVE AN OFFICAL FLUID RESTRICTION ORDER BUT HAS BEEN TOLD TO LIMIT HIS FLUIDS. PT COMPLAINS OF BEING THIRSTY AND FEELING DEHYDRATED. PT FLUID BALANCE HAS BEEN NEUTRAL AT THIS TIME. I INSTRUCTED PT THAT HE COULD EASILY GO OVER FLUID BALANCE AND BECOME FLUID OVERLOADED IF NOT CAREFUL WITH HIS FLUID INTAKE. PT DID DRINK 1380 MLS OF FLUID THIS SHIFT, THIS NUMBER INCLUDES WHAT WAS ON DINNER TRAY AT 1800. DESPITE MY INSTRUCTION AND EDUCATION TO WATCH INTAKE, HE CONTINUED TO ASK FOR FLUIDS. PT HAS HAD 750 MLS OF URINE OUT. PT AWOKE THIS AM AROUND 0500 COMPLAINING OF A RODRIGUEZ AND SOB. HE DENIES CP. SKIN IS WARM AND DRY. PT RESP E/U ON RA W/O DISTRESS. SATS WNL IN THE UPPER 90'S. DR. DAVID CALLED AND NOTIFIED ABOUT PT NONCOMPLIENCE WITH FLUIDS AND COMPLAINTS OF SOB AND RODRIGUEZ. NO ADDTIONAL ORDERS GIVEN, AND HE DID NOT WANT TO ORDER A FLUID RESTRICTION. PT HAS BEEN INDEPENDENT IN THE ROOM A/OX4.
--- NOTE | 2020-09-15 11:23 | NUR ---
DISCHARGE INSTRUCTIONS REVIEWED WITH PT. IV DC'D INTACT. [facility]. F/U APPT SCHEDULED WITH DR PORRAS AND PT TO CALL [facility] FOR [facility]. PT DC'D HOME ESCORTED OUT VIA W/C AY 1121.
[2020-11-07] MEDS ORDERED: Acetaminophen650 M1 PO (17:14)
[2020-11-07] MEDS ORDERED: ASPI81CH PO (17:14)
[2020-11-07] MEDS ORDERED: Prednisone20 MG PO (17:15)
== END 2020-09-15 11:23 | disposition home or self-care (01) ==
LOC: ER 03:22 → MEDS 03:23
PROVIDERS: Emergency Medicine; ADMIT Internal Medicine
DX: I12.0 Hypertensive chronic kidney disease with stage 5 chronic kidney disease or end stage renal disease (principal); N18.6 End stage renal disease; N25.81 Secondary hyperparathyroidism of renal origin; E78.5 Hyperlipidemia, unspecified; E66.9 Obesity, unspecified; Z68.36 Body mass index [BMI] 36.0-36.9, adult; Z88.8 Allergy status to other drugs, medicaments and biological substances; Z91.040 Latex allergy status; Z91.013 Allergy to seafood
CPT/HCPCS: 36415; 71045; 80053; 83880; 84484; 85025; 93005; 93010; 93306; 96372; 96374; 96376; 99285-25; A9270; G0378; J1650; P9046

== ENCOUNTER 2020-09-22 16:44 | Emergency (ER) | payer OTHER, MEDICARE ==
[~2020-09-22] VITALS: Ht 188 cm; Wt 122.5 kg
[~2020-09-22 16:44] MED LIST changes: +FENO48 PO
[2020-09-22 17:31] LABS: BASOPHILS ABSOLUTE AUTO 0.09 K/mm3 (0.00-0.23); BASOPHILS PERCENT AUTO 1 % (0-2); EOSINOPHILS ABSOLUTE AUTO 0.24 K/mm3 (0.00-0.68); EOSINOPHILS PERCENT AUTO 2 % (0-6); Hematocrit 42.9 % (37.0-53.0); Hemoglobin 14.3 g/dL (13.5-17.5); IMMATURE GRAN ABSOLUTE AUTO 0.43 K/mm3 (0.00-0.10); IMMATURE GRAN PERCENT AUTO 3 % (0-1); LYMPHOCYTES ABSOLUTE AUTO 2.16 K/mm3 (0.84-5.20); LYMPHOCYTES PERCENT AUTO 15 % (21-46); MONOCYTES ABSOLUTE AUTO 1.28 K/mm3 (0.16-1.47); MONOCYTES PERCENT AUTO 9 % (4-13); Mean Corpuscular HGB 30.2 pg (26.0-34.0); Mean Corpuscular HGB Conc 33.3 g/dL (31.5-36.5); Mean Corpuscular Volume 91 fL (80-100); NEUTROPHILS ABSOLUTE AUTO 10.53 K/mm3 (1.96-9.15); NEUTROPHILS PERCENT AUTO 72 % (41-73); Platelet Count 267 K/mm3 (150-400); RDW Coefficient Variation 14.2 % (11.7-14.2); RDW Standard Deviation 47.6 fL (35.1-46.3); Red Blood Cell Count 4.74 M/mm3 (4.30-5.90); White Blood Cell Count 14.73 K/mm3 (4.00-11.30)
[2020-09-22 17:48] LABS: Magnesium, Blood 1.9 mg/dL (1.6-2.4); Phosphorus, Blood 3.2 mg/dL (2.5-4.9)
[2020-09-22 18:09] LABS: Albumin, Blood 1.5 g/dL (3.4-5.0); Albumin/Globulin Ratio 0.4 (0.8-1.8); Bilirubin, Total 0.2 mg/dL (0.1-1.0); Bun/Creatinine Ratio 16.2 (12.0-20.0); Calcium, Blood 8.3 mg/dL (8.5-10.1); Creatinine, Blood 2.16 mg/dL (0.60-1.20); Globulin, Blood 3.8 g/dL (2.2-4.0); Potassium, Blood 3.2 mmol/L (3.5-5.5); Total Protein, Blood 5.3 g/dL (6.4-8.2)
[2020-09-22 19:14] LABS: Source, Urine Clean Catch
[2020-09-22 19:18] LABS: Appearance, Urine Clear (Clear); Bilirubin, Urine Neg (Neg); Blood, Urine 2+ (Neg); Color, Urine Yellow (P-Yellow); Glucose Qualitative, Urine Neg (Neg); Ketones, Urine Neg (Neg); Leukocyte Esterase, Urine Neg (Neg); Nitrite, Urine Neg (Neg); Protein, Urine 4+ (Neg); Specific Gravity, Urine 1.015 (1.003-1.022); Urobilinogen, Urine NORM (Normal); pH, Urine 6.5 (5.0-8.0)
[2020-09-22 20:22] LABS: Bacteria Not Seen /hpf; Red Blood Cells, Urine 0-2 /hpf (0-2); Squamous Epithelial Cells Not Seen /hpf (Few); White Blood Cells, Urine Not Seen /hpf (0-5)
[2020-11-07] MEDS ORDERED: ASPI81CH PO (17:14)
[2020-11-07] MEDS ORDERED: Acetaminophen650 M1 PO (17:14)
[2020-11-07] MEDS ORDERED: Prednisone20 MG PO (17:15)
== END 2020-09-22 20:27 | disposition home or self-care (01) ==
LOC: ER 16:44
PROVIDERS: Physician Assistant
DX: E87.6 Hypokalemia (principal); J40 Bronchitis, not specified as acute or chronic; Z88.8 Allergy status to other drugs, medicaments and biological substances; Z79.01 Long term (current) use of anticoagulants; Z91.040 Latex allergy status; Z79.899 Other long term (current) drug therapy; W18.30XA Fall on same level, unspecified, initial encounter
CPT/HCPCS: 36415; 71046; 80053; 81001; 83690; 83735; 84100; 85025; 93005; 93010; 99283-25; A9270

== ENCOUNTER 2020-09-26 21:41 | Inpatient (IN) | payer OTHER, MEDICARE ==
[~2020-09-26] VITALS: Ht 188 cm; Wt 119.0 kg
[2020-09-26 22:10] LABS: BASOPHILS ABSOLUTE AUTO 0.11 K/mm3 (0.00-0.23); BASOPHILS PERCENT AUTO 1 % (0-2); EOSINOPHILS ABSOLUTE AUTO 0.27 K/mm3 (0.00-0.68); EOSINOPHILS PERCENT AUTO 3 % (0-6); Hematocrit 42.5 % (37.0-53.0); Hemoglobin 14.3 g/dL (13.5-17.5); IMMATURE GRAN ABSOLUTE AUTO 0.48 K/mm3 (0.00-0.10); IMMATURE GRAN PERCENT AUTO 4 % (0-1); LYMPHOCYTES ABSOLUTE AUTO 2.27 K/mm3 (0.84-5.20); LYMPHOCYTES PERCENT AUTO 21 % (21-46); MONOCYTES ABSOLUTE AUTO 1.13 K/mm3 (0.16-1.47); MONOCYTES PERCENT AUTO 10 % (4-13); Mean Corpuscular HGB 30.4 pg (26.0-34.0); Mean Corpuscular HGB Conc 33.6 g/dL (31.5-36.5); Mean Corpuscular Volume 90 fL (80-100); Mean Platelet Volume 10.4 fL (9.1-12.4); NEUTROPHILS PERCENT AUTO 61 % (41-73); Platelet Count 283 K/mm3 (150-400); RDW Coefficient Variation 14.4 % (11.7-14.2); RDW Standard Deviation 47.5 fL (35.1-46.3); White Blood Cell Count 10.86 K/mm3 (4.00-11.30)
[2020-09-26 22:33] LABS: Albumin, Blood 1.5 g/dL (3.4-5.0); Albumin/Globulin Ratio 0.4 (0.8-1.8); Bilirubin, Total 0.2 mg/dL (0.1-1.0); Bun/Creatinine Ratio 22.3 (12.0-20.0); Calcium, Blood 7.9 mg/dL (8.5-10.1); Creatinine, Blood 2.15 mg/dL (0.60-1.20); Globulin, Blood 3.9 g/dL (2.2-4.0); Potassium, Blood 3.4 mmol/L (3.5-5.5); Total Protein, Blood 5.4 g/dL (6.4-8.2); Troponin I 0.029 ng/mL (0.000-0.040)
[2020-09-26 23:45] LABS: Magnesium, Blood 1.9 mg/dL (1.6-2.4)
--- NOTE | 2020-09-27 00:46 | NUR ---
ARRIVAL TO PCU PT TRANSFERRED TO PCU 2 FROM ED [address], PT ABLE TO AMBULATE FROM [address] TO BED. PT SALINE LOCKED. COMPLAINING OF 4/10 CHEST PAIN, WHICH HAS GOTTEN BETTER SINCE ARRIVAL TO ED. PT ALERT AND ORIENTED, AMBULATED TO BATHROOM INDEPENDENTLY. VSS UPON ARRIVAL TO UNIT, SBP 140'S, HR 90 SR PER TELE, AFEBRILE, SPO2 98% ON RA. PT REQUESTED SANDWICH AND WATER, NO OTHER NEEDS AT THIS TIME.
--- NOTE | 2020-09-27 05:54 | NUR ---
SHIFT SUMMARY PT VERY ANXIOUS THIS AM UNABLE TO REST. REPORTING CHEST PAIN 09/23, MORPHINE GIVEN PER EMAR. PT STATES HE DOES NOT WANT TO HAVE STRESS TEST DONE THIS AM AND DOES NOT WANT IMPLANTED CARDIAC DEVICE. VITALS REMAINS STABLE, SPO2 >92% ON RA. STEADY ON FEET WHEN AMBULATING TO RESTROOM. DENIES NEEDS, WILL CONTINUE TO MONITOR UNTIL REPORT GIVEN TO ONCOMING RN.
[2020-09-27 09:31] LABS: International Normalized Ratio 0.95; Prothrombin Time Results 10.3 Sec (9.7-11.5)
--- NOTE | 2020-09-27 17:20 | NUR ---
SHIFT SUMMARY: PT CONTINUES A&OX4 T/OUT SHIFT, ANXIOUS AT TIMES, MAINTAINS SATS >92% ON RA, SR ON MONITOR, INDEPENDENT IN ROOM. PT HAS DENIED SOB AND CHEST PAIN/PRESSURE T/OUT SHIFT. HEPARIN GTT INITIATED AND INFUSING WITHOUT DIFFICULTY. IMPORTANCE OF STRESS TEST EXPLAINED TO PT BY MULTIPLE STAFF MEMBERS, PT AGREES TO HAVE TEST DONE AND COMPLETED 1st PORTION TODAY. PLAN IS FOR PT TO BE NPO AT MIDNIGHT FOR 2nd PORTION OF STRESS TEST TOMORROW AM. WILL CONTINUE TO MONITOR AND TREAT ACCORDINGLY UNTIL CHANGE OF SHIFT.
[2020-09-28 03:16] LABS: BASOPHILS ABSOLUTE AUTO 0.08 K/mm3 (0.00-0.23); BASOPHILS PERCENT AUTO 1 % (0-2); EOSINOPHILS ABSOLUTE AUTO 0.39 K/mm3 (0.00-0.68); EOSINOPHILS PERCENT AUTO 4 % (0-6); Hematocrit 38.2 % (37.0-53.0); Hemoglobin 12.7 g/dL (13.5-17.5); IMMATURE GRAN ABSOLUTE AUTO 0.54 K/mm3 (0.00-0.10); IMMATURE GRAN PERCENT AUTO 6 % (0-1); LYMPHOCYTES ABSOLUTE AUTO 1.78 K/mm3 (0.84-5.20); LYMPHOCYTES PERCENT AUTO 19 % (21-46); MONOCYTES ABSOLUTE AUTO 0.84 K/mm3 (0.16-1.47); MONOCYTES PERCENT AUTO 9 % (4-13); Mean Corpuscular HGB Conc 33.2 g/dL (31.5-36.5); Mean Corpuscular Volume 90 fL (80-100); Mean Platelet Volume 9.8 fL (9.1-12.4); NEUTROPHILS ABSOLUTE AUTO 5.55 K/mm3 (1.96-9.15); NEUTROPHILS PERCENT AUTO 60 % (41-73); Platelet Count 211 K/mm3 (150-400); RDW Coefficient Variation 14.3 % (11.7-14.2); RDW Standard Deviation 47.3 fL (35.1-46.3); Red Blood Cell Count 4.24 M/mm3 (4.30-5.90); White Blood Cell Count 9.18 K/mm3 (4.00-11.30)
[2020-09-28 03:34] LABS: Bun/Creatinine Ratio 26.4 (12.0-20.0); Calcium, Blood 7.6 mg/dL (8.5-10.1); Creatinine, Blood 1.44 mg/dL (0.60-1.20); Potassium, Blood 3.3 mmol/L (3.5-5.5)
[2020-09-28 03:43] LABS: BAND PERCENT MAN 2 % (0-8); BASOPHILS ABSOLUTE MAN 0.18 K/mm3 (0.00-0.23); BASOPHILS PERCENT MAN 2 % (0-2); EOSINOPHILS ABSOLUTE MAN 0.73 K/mm3 (0.00-0.68); EOSINOPHILS PERCENT MAN 8 % (0-6); LYMPHOCYTES ABSOLUTE MAN 1.28 K/mm3 (0.84-5.20); LYMPHOCYTES PERCENT MAN 14 % (21-46); METAMYELOCYTE ABSOLUTE MAN 0.27 K/mm3 (0.00-0.00); METAMYELOCYTE PERCENT MAN 3 % (0-0); MONOCYTES ABSOLUTE MAN 0.64 K/mm3 (0.16-1.47); MONOCYTES PERCENT MAN 7 % (4-13); MYELOCYTE ABSOLUTE MAN 0.18 K/mm3 (0.00-0.00); MYELOCYTE PERCENT MAN 2 % (0-0); NEUTROPHILS ABSOLUTE MAN 5.87 K/mm3 (1.96-9.15); SEG NEUTROPHILS PERCENT MAN 62 % (41-73); TOTAL CELLS COUNTED 100
--- NOTE | 2020-09-28 05:40 | NUR ---
GUNNERY/ORDNANCE OFFICER SUMMARY PT HAS REMAINED NSR IN THE 80'S THIS SHIFT. PT REPORTING MINIMAL CP AT START OF SHIFT BUT WAS FULLY RESOLVED W IV PAIN MEDICATION. O2 SATS >92% ON RM AIR. VSS WNL AND STABLE. TROPONINS CONTINUE TO TREND DOWN. PT HAS HAD GOOD URINE OUTPUT THIS SHIFT. PT NPO SINCE MIDNIGHT IN ANTICIPATION FOR STRESS TEST. WILL REPORT TO ONCOMING RN.
--- NOTE | 2020-09-28 13:00 | NUR ---
PATIENT HAS BEEN OUT IN THE [place] MULTIPLE TIMES INQUIRING WHETHER OR NOT HIS STRESS TEST RESULTS WERE BACK AND IF HE COULD GO HOME YET. PATIENT FINALLY RIPPED OFF HIS TELEMETRY LEADS AND SAID HE WANTED TO GO HOME AND DIDN'T WANT TO WAIT ANY LONGER FOR THE RESULTS OR DISCHARGE ORDERS. I CALLED DR. BRADSHAW TO LET HIM KNOW THE PATIENT DID NOT WANT TO WAIT ANY LONGER AND WAS GOING TO LEAVE AMA.
--- NOTE | 2020-09-28 14:00 | NUR ---
PT LEAVES AMA: PT COMPLETES 2nd PORTION OF STRESS TEST THIS AM. PT UPDATED OFTEN ON WAIT FOR TEST RESULTS AND PLAN OF CARE, BUT CONTINUES TO EXPRESS INTENT TO GO HOME. PT EDUCATED ABOUT RISKS OF LEAVING AMA, BUT IS INSISTENT UPON LEAVING. IV DISCONTINUED, PT DRESSES WITHOUT DIFFICULTY AND IS ESCORTED FROM UNIT VIA WC IN NAD.
[2020-11-07] MEDS ORDERED: ASPI81CH PO (17:14)
[2020-11-07] MEDS ORDERED: Acetaminophen650 M1 PO (17:14)
[2020-11-07] MEDS ORDERED: Prednisone20 MG PO (17:15)
== END 2020-09-28 13:19 | disposition left against medical advice (07) | DRG 281 ==
LOC: ER 21:41 → PCU 21:42
PROVIDERS: Internal Medicine; Internal Medicine Cardiovascular Disease; Physician Assistant; ADMIT Internal Medicine
DX: I47.1 Supraventricular tachycardia (principal); I21.A1 Myocardial infarction type 2; N25.81 Secondary hyperparathyroidism of renal origin; I13.0 Hypertensive heart and chronic kidney disease with heart failure and stage 1 through stage 4 chronic kidney disease, or unspecified chronic kidney disease; D63.1 Anemia in chronic kidney disease; E87.6 Hypokalemia; I45.6 Pre-excitation syndrome; F32.9 Major depressive disorder, single episode, unspecified; E66.9 Obesity, unspecified; E78.5 Hyperlipidemia, unspecified; N18.30 Chronic kidney disease, stage 3 unspecified; G25.81 Restless legs syndrome; Z53.29 Procedure and treatment not carried out because of patient's decision for other reasons; I25.10 Atherosclerotic heart disease of native coronary artery without angina pectoris; Z98.52 Vasectomy status; Z99.2 Dependence on renal dialysis; Z91.040 Latex allergy status; Z91.013 Allergy to seafood; Z88.8 Allergy status to other drugs, medicaments and biological substances; Z79.01 Long term (current) use of anticoagulants; Z79.899 Other long term (current) drug therapy; Z90.49 Acquired absence of other specified parts of digestive tract; Z98.890 Other specified postprocedural states; Z68.33 Body mass index [BMI] 33.0-33.9, adult
CPT/HCPCS: 36415; 71045; 78452; 80048; 80053; 83735; 83880; 84484; 85025; 85610; 85730; 93005; 93010; 93017; 96374; 99285-25; A9270; A9500; G0378; J0706; J1644; J1742; J2270; J2785

== ENCOUNTER 2020-10-03 11:45 | Emergency (ER) | payer OTHER, MEDICARE ==
[~2020-10-03] VITALS: Ht 188 cm; Wt 117.9 kg
[2020-10-03 12:30] LABS: Calcium, Ionized (POC) 1.05 mmol/L (1.10-1.46); Chloride (POC) 95 mmol/L (98-108); Creatinine (POC) 2.1 mg/dL (0.8-1.3); Glucose (ISTAT POC) 125 mg/dL (70-99); Hemoglobin (POC) 15.3 g/dL (13.5-17.5); Sodium (POC) 134 mmol/L (135-148); Total CO2 (POC) 27 mmol/L (21-32)
[2020-10-03 12:37] LABS: Hematocrit 45.1 % (37.0-53.0); Hemoglobin 15.2 g/dL (13.5-17.5); Mean Corpuscular HGB 30.3 pg (26.0-34.0); Mean Corpuscular HGB Conc 33.7 g/dL (31.5-36.5); Mean Corpuscular Volume 90 fL (80-100); Mean Platelet Volume 10.2 fL (9.1-12.4); Platelet Count 307 K/mm3 (150-400); RDW Coefficient Variation 14.4 % (11.7-14.2); RDW Standard Deviation 47.6 fL (35.1-46.3); Red Blood Cell Count 5.01 M/mm3 (4.30-5.90); White Blood Cell Count 14.54 K/mm3 (4.00-11.30)
[2020-10-03 12:55] LABS: Alanine Aminotransfer (ALT/SGP 34 U/L (12-78); Albumin, Blood 1.7 g/dL (3.4-5.0); Albumin/Globulin Ratio 0.4 (0.8-1.8); Alk Phos 61 U/L (50-136); Anion Gap 8 mmol/L (6-16); Aspartate Aminotrans (AST/SGOT 29 U/L (12-37); Bilirubin, Total 0.2 mg/dL (0.1-1.0); Blood Urea Nitrogen 41 mg/dL (8-24); Bun/Creatinine Ratio 21.5 (12.0-20.0); CO2, Blood 27 mmol/L (21-32); Calcium, Blood 8.6 mg/dL (8.5-10.1); Chloride, Blood 99 mmol/L (98-108); Creatinine, Blood 1.91 mg/dL (0.60-1.20); Globulin, Blood 3.9 g/dL (2.2-4.0); Glomerular Filtration Rate 38 (60-); Glucose, Blood 124 mg/dL (70-99); Potassium, Blood 3.1 mmol/L (3.5-5.5); Sodium, Blood 134 mmol/L (136-145); Total Protein, Blood 5.6 g/dL (6.4-8.2); Troponin I <0.015 ng/mL (0.000-0.040)
[2020-10-03] MEDS ORDERED: Amiodarone HCl200 MG PO (13:05)
[2020-10-03 13:06] LABS: BAND PERCENT MAN 2 % (0-8); BASOPHILS PERCENT MAN 0 % (0-2); EOSINOPHILS ABSOLUTE MAN 0.43 K/mm3 (0.00-0.68); EOSINOPHILS PERCENT MAN 3 % (0-6); LYMPHOCYTES ABSOLUTE MAN 2.47 K/mm3 (0.84-5.20); LYMPHOCYTES PERCENT MAN 17 % (21-46); METAMYELOCYTE ABSOLUTE MAN 0.14 K/mm3 (0.00-0.00); METAMYELOCYTE PERCENT MAN 1 % (0-0); MONOCYTES ABSOLUTE MAN 1.01 K/mm3 (0.16-1.47); MONOCYTES PERCENT MAN 7 % (4-13); MYELOCYTE ABSOLUTE MAN 0.58 K/mm3 (0.00-0.00); MYELOCYTE PERCENT MAN 4 % (0-0); NEUTROPHILS ABSOLUTE MAN 9.88 K/mm3 (1.96-9.15); SEG NEUTROPHILS PERCENT MAN 66 % (41-73); TOTAL CELLS COUNTED 100
[2020-11-07] MEDS ORDERED: Acetaminophen650 M1 PO (17:14)
[2020-11-07] MEDS ORDERED: ASPI81CH PO (17:14)
[2020-11-07] MEDS ORDERED: Prednisone20 MG PO (17:15)
== END 2020-10-03 14:10 | disposition home or self-care (01) ==
LOC: ER 11:45
PROVIDERS: Emergency Medicine; Physician Assistant
DX: I45.6 Pre-excitation syndrome (principal); Z79.899 Other long term (current) drug therapy; Z91.040 Latex allergy status; Z88.8 Allergy status to other drugs, medicaments and biological substances; Z79.01 Long term (current) use of anticoagulants; Z91.013 Allergy to seafood
CPT/HCPCS: 36415; 80047; 80053; 83880; 84484; 85014; 85025; 93005; 93010; 96361; 96374; 99285-25; A9270; J0282; J7030

== ENCOUNTER 2020-10-13 16:44 | Observation (INO) | payer OTHER, MEDICARE ==
[~2020-10-13] VITALS: Ht 188 cm; Wt 118.1 kg
[~2020-10-13 16:44] MED LIST changes: +Amiodarone HCl200 MG PO
[2020-10-13 17:56] LABS: BASOPHILS ABSOLUTE AUTO 0.02 K/mm3 (0.00-0.23); BASOPHILS PERCENT AUTO 0 % (0-2); EOSINOPHILS ABSOLUTE AUTO 0.03 K/mm3 (0.00-0.68); EOSINOPHILS PERCENT AUTO 0 % (0-6); Hematocrit 40.2 % (37.0-53.0); Hemoglobin 13.9 g/dL (13.5-17.5); IMMATURE GRAN ABSOLUTE AUTO 0.37 K/mm3 (0.00-0.10); IMMATURE GRAN PERCENT AUTO 2 % (0-1); LYMPHOCYTES ABSOLUTE AUTO 1.53 K/mm3 (0.84-5.20); LYMPHOCYTES PERCENT AUTO 9 % (21-46); MONOCYTES ABSOLUTE AUTO 1.03 K/mm3 (0.16-1.47); MONOCYTES PERCENT AUTO 6 % (4-13); Mean Corpuscular HGB 30.4 pg (26.0-34.0); Mean Corpuscular HGB Conc 34.6 g/dL (31.5-36.5); Mean Corpuscular Volume 88 fL (80-100); Mean Platelet Volume 10.4 fL (9.1-12.4); NEUTROPHILS ABSOLUTE AUTO 14.05 K/mm3 (1.96-9.15); NEUTROPHILS PERCENT AUTO 83 % (41-73); Platelet Count 236 K/mm3 (150-400); RDW Coefficient Variation 14.3 % (11.7-14.2); Red Blood Cell Count 4.57 M/mm3 (4.30-5.90); White Blood Cell Count 17.03 K/mm3 (4.00-11.30)
[2020-10-13 18:14] LABS: Alanine Aminotransfer (ALT/SGP 32 U/L (12-78); Albumin, Blood 1.6 g/dL (3.4-5.0); Albumin/Globulin Ratio 0.4 (0.8-1.8); Alk Phos 54 U/L (50-136); Anion Gap 9 mmol/L (6-16); Aspartate Aminotrans (AST/SGOT 27 U/L (12-37); Bilirubin, Total 0.3 mg/dL (0.1-1.0); Blood Urea Nitrogen 61 mg/dL (8-24); Bun/Creatinine Ratio 27.6 (12.0-20.0); CO2, Blood 28 mmol/L (21-32); Calcium, Blood 8.4 mg/dL (8.5-10.1); Chloride, Blood 97 mmol/L (98-108); Creatinine, Blood 2.21 mg/dL (0.60-1.20); Globulin, Blood 3.9 g/dL (2.2-4.0); Glomerular Filtration Rate 32 (60-); Glucose, Blood 142 mg/dL (70-99); Potassium, Blood 2.5 mmol/L (3.5-5.5); Sodium, Blood 134 mmol/L (136-145); Total Protein, Blood 5.5 g/dL (6.4-8.2); Troponin I <0.015 ng/mL (0.000-0.040)
--- NOTE | 2020-10-14 01:17 | NUR ---
PHYSICIAN COMMUNICATION CONTACTED CIVILIAN TECHNICIAN PHYSICIAN, DR REMDAN, TO CLARIFY DUPLICATE MEDICATION ORDER OF IVPB MAGNESIUM. THIS RN REPORTED THAT THERE WAS TWO SEPARATE ORDERS OF IV MAGNESIUM ORDERED AND THAT THE PATIENT'S MAGNESIUM LEVEL WAS 1.9 WHICH WAS WITHIN NORMAL LIMITS. DR REDMAN SAID TO CANCEL THE IV MAGNESIUM AND PLACE AN ORDER FOR HIS MAGNESIUM TO BE CHECKED WITH MORNING LABS.
[2020-10-14 02:31] LABS: BASOPHILS ABSOLUTE AUTO 0.04 K/mm3 (0.00-0.23); BASOPHILS PERCENT AUTO 0 % (0-2); EOSINOPHILS ABSOLUTE AUTO 0.12 K/mm3 (0.00-0.68); EOSINOPHILS PERCENT AUTO 1 % (0-6); Hematocrit 35.1 % (37.0-53.0); Hemoglobin 11.9 g/dL (13.5-17.5); IMMATURE GRAN ABSOLUTE AUTO 0.32 K/mm3 (0.00-0.10); IMMATURE GRAN PERCENT AUTO 3 % (0-1); LYMPHOCYTES ABSOLUTE AUTO 1.64 K/mm3 (0.84-5.20); LYMPHOCYTES PERCENT AUTO 15 % (21-46); MONOCYTES ABSOLUTE AUTO 0.97 K/mm3 (0.16-1.47); MONOCYTES PERCENT AUTO 9 % (4-13); Mean Corpuscular HGB 30.7 pg (26.0-34.0); Mean Corpuscular HGB Conc 33.9 g/dL (31.5-36.5); Mean Corpuscular Volume 91 fL (80-100); Mean Platelet Volume 10.3 fL (9.1-12.4); NEUTROPHILS ABSOLUTE AUTO 7.76 K/mm3 (1.96-9.15); NEUTROPHILS PERCENT AUTO 72 % (41-73); Platelet Count 187 K/mm3 (150-400); RDW Coefficient Variation 14.5 % (11.7-14.2); RDW Standard Deviation 47.4 fL (35.1-46.3); Red Blood Cell Count 3.88 M/mm3 (4.30-5.90); White Blood Cell Count 10.85 K/mm3 (4.00-11.30)
[2020-10-14 02:56] LABS: Alanine Aminotransfer (ALT/SGP 25 U/L (12-78); Albumin, Blood 1.8 g/dL (3.4-5.0); Albumin/Globulin Ratio 0.6 (0.8-1.8); Alk Phos 43 U/L (50-136); Anion Gap 6 mmol/L (6-16); Aspartate Aminotrans (AST/SGOT 12 U/L (12-37); Bilirubin, Total 0.1 mg/dL (0.1-1.0); Blood Urea Nitrogen 58 mg/dL (8-24); CO2, Blood 30 mmol/L (21-32); CPK Creatine Kinase 103 U/L (39-308); Calcium, Blood 7.5 mg/dL (8.5-10.1); Chloride, Blood 104 mmol/L (98-108); Globulin, Blood 2.9 g/dL (2.2-4.0); Glomerular Filtration Rate 36 (60-); Glucose, Blood 182 mg/dL (70-99); Magnesium, Blood 2.1 mg/dL (1.6-2.4); Potassium, Blood 3.2 mmol/L (3.5-5.5); Sodium, Blood 140 mmol/L (136-145); Total Protein, Blood 4.7 g/dL (6.4-8.2); Troponin I <0.015 ng/mL (0.000-0.040)
--- NOTE | 2020-10-14 06:32 | NUR ---
SHIFT SUMMARY PATIENT ARRIVED TO ROOM 360 AT 0010. HE IS ALERT AND ORIENTED X4. ABLE TO SELF AMBULATE SAFELY. NO COMPLAINTS OF CHEST PAIN OR SHORTNESS OF BREATH. SLEPT WELL OVERNIGHT. NO ACUTE ISSUES NOTED. IV PATENT AND INFUSING. BED IN LOWEST POSITION WITH WHEELS LOCKED. CALL LIGHT WITHIN REACH. REPORT GIVEN TO ONCOMING RN.
--- NOTE | 2020-10-14 09:00 | NUR ---
PATIENT LEFT AMA AT 0852. FORM SIGNED AND IN CHART. DR. CABAN CAME TO BEDSIDE JUST PRIOR.
[2020-11-07] MEDS ORDERED: ASPI81CH PO (17:14)
[2020-11-07] MEDS ORDERED: Acetaminophen650 M1 PO (17:14)
[2020-11-07] MEDS ORDERED: Prednisone20 MG PO (17:15)
== END 2020-10-14 08:50 | disposition left against medical advice (07) ==
LOC: ER 16:44 → MEDS 16:45
PROVIDERS: Physician Assistant; ADMIT Internal Medicine
DX: R07.89 Other chest pain (principal); E87.6 Hypokalemia; I12.9 Hypertensive chronic kidney disease with stage 1 through stage 4 chronic kidney disease, or unspecified chronic kidney disease; N18.30 Chronic kidney disease, stage 3 unspecified; J44.9 Chronic obstructive pulmonary disease, unspecified; R94.31 Abnormal electrocardiogram [ECG] [EKG]; E86.0 Dehydration; E66.9 Obesity, unspecified; E78.5 Hyperlipidemia, unspecified; I25.10 Atherosclerotic heart disease of native coronary artery without angina pectoris; Z53.29 Procedure and treatment not carried out because of patient's decision for other reasons; Z86.79 Personal history of other diseases of the circulatory system; Z79.01 Long term (current) use of anticoagulants; Z68.32 Body mass index [BMI] 32.0-32.9, adult; Z88.8 Allergy status to other drugs, medicaments and biological substances; Z91.040 Latex allergy status; Z91.013 Allergy to seafood
CPT/HCPCS: 36415; 71046; 80053; 82550; 83735; 84484; 85025; 93005; 93010; 96365; 99285-25; A9270; G0378; J3475; J3480; P9046

== ENCOUNTER 2020-10-24 22:10 | Emergency (ER) | payer OTHER, MEDICARE ==
[~2020-10-24] VITALS: Ht 188 cm; Wt 117.9 kg
[2020-10-24 22:55] LABS: BASOPHILS ABSOLUTE AUTO 0.04 K/mm3 (0.00-0.23); BASOPHILS PERCENT AUTO 0 % (0-2); EOSINOPHILS ABSOLUTE AUTO 0.01 K/mm3 (0.00-0.68); EOSINOPHILS PERCENT AUTO 0 % (0-6); Hematocrit 38.9 % (37.0-53.0); Hemoglobin 13.2 g/dL (13.5-17.5); IMMATURE GRAN ABSOLUTE AUTO 0.62 K/mm3 (0.00-0.10); IMMATURE GRAN PERCENT AUTO 4 % (0-1); LYMPHOCYTES ABSOLUTE AUTO 0.55 K/mm3 (0.84-5.20); LYMPHOCYTES PERCENT AUTO 4 % (21-46); MONOCYTES ABSOLUTE AUTO 0.77 K/mm3 (0.16-1.47); MONOCYTES PERCENT AUTO 5 % (4-13); Mean Corpuscular HGB 30.6 pg (26.0-34.0); Mean Corpuscular HGB Conc 33.9 g/dL (31.5-36.5); Mean Corpuscular Volume 90 fL (80-100); Mean Platelet Volume 9.9 fL (9.1-12.4); NEUTROPHILS ABSOLUTE AUTO 12.86 K/mm3 (1.96-9.15); NEUTROPHILS PERCENT AUTO 87 % (41-73); Platelet Count 268 K/mm3 (150-400); RDW Coefficient Variation 14.6 % (11.7-14.2); RDW Standard Deviation 49.1 fL (35.1-46.3); Red Blood Cell Count 4.31 M/mm3 (4.30-5.90); White Blood Cell Count 14.85 K/mm3 (4.00-11.30)
[2020-10-24 23:09] LABS: Alanine Aminotransfer (ALT/SGP 29 U/L (12-78); Albumin, Blood 1.7 g/dL (3.4-5.0); Albumin/Globulin Ratio 0.5 (0.8-1.8); Alk Phos 52 U/L (50-136); Anion Gap 7 mmol/L (6-16); Aspartate Aminotrans (AST/SGOT 18 U/L (12-37); Bilirubin, Total 0.2 mg/dL (0.1-1.0); Blood Urea Nitrogen 46 mg/dL (8-24); Bun/Creatinine Ratio 26.1 (12.0-20.0); CO2, Blood 27 mmol/L (21-32); Calcium, Blood 7.3 mg/dL (8.5-10.1); Chloride, Blood 105 mmol/L (98-108); Creatinine, Blood 1.76 mg/dL (0.60-1.20); Globulin, Blood 3.3 g/dL (2.2-4.0); Glomerular Filtration Rate 39 (60-); Glucose, Blood 256 mg/dL (70-99); Magnesium, Blood 1.9 mg/dL (1.6-2.4); Potassium, Blood 3.3 mmol/L (3.5-5.5); Sodium, Blood 139 mmol/L (136-145); Troponin I <0.015 ng/mL (0.000-0.040)
== END 2020-10-25 01:00 | disposition home or self-care (01) ==
LOC: ER 22:10
PROVIDERS: Student in an Organized Health Care Education/Training Program
DX: R07.9 Chest pain, unspecified (principal); Z79.01 Long term (current) use of anticoagulants; Z79.899 Other long term (current) drug therapy
CPT/HCPCS: 36415; 71045; 80053; 83735; 84484; 85025; 93005; 93010; 99285-25; A9270

== ENCOUNTER 2020-10-27 20:40 | Emergency (ER) | payer OTHER, MEDICARE ==
[~2020-10-27] VITALS: Ht 188 cm; Wt 122.5 kg
[2020-10-27 21:14] LABS: Hematocrit 41.8 % (37.0-53.0); Hemoglobin 13.8 g/dL (13.5-17.5); Mean Corpuscular HGB 30.3 pg (26.0-34.0); Mean Corpuscular Volume 92 fL (80-100); Mean Platelet Volume 9.7 fL (9.1-12.4); Platelet Count 214 K/mm3 (150-400); RDW Coefficient Variation 14.7 % (11.7-14.2); RDW Standard Deviation 49.7 fL (35.1-46.3); Red Blood Cell Count 4.55 M/mm3 (4.30-5.90); White Blood Cell Count 10.63 K/mm3 (4.00-11.30)
[2020-10-27 21:35] LABS: BAND PERCENT MAN 4 % (0-8); BASOPHILS PERCENT MAN 0 % (0-2); EOSINOPHILS ABSOLUTE MAN 0.21 K/mm3 (0.00-0.68); EOSINOPHILS PERCENT MAN 2 % (0-6); LYMPHOCYTES ABSOLUTE MAN 0.42 K/mm3 (0.84-5.20); LYMPHOCYTES PERCENT MAN 4 % (21-46); METAMYELOCYTE ABSOLUTE MAN 0.31 K/mm3 (0.00-0.00); METAMYELOCYTE PERCENT MAN 3 % (0-0); MONOCYTES ABSOLUTE MAN 0.21 K/mm3 (0.16-1.47); MONOCYTES PERCENT MAN 2 % (4-13); MYELOCYTE ABSOLUTE MAN 0.31 K/mm3 (0.00-0.00); MYELOCYTE PERCENT MAN 3 % (0-0); NEUTROPHILS ABSOLUTE MAN 9.14 K/mm3 (1.96-9.15); SEG NEUTROPHILS PERCENT MAN 82 % (41-73); TOTAL CELLS COUNTED 100
[2020-10-27 21:38] LABS: Albumin, Blood 1.7 g/dL (3.4-5.0); Albumin/Globulin Ratio 0.5 (0.8-1.8); Bilirubin, Total 0.2 mg/dL (0.1-1.0); Bun/Creatinine Ratio 18.9 (12.0-20.0); Calcium, Blood 8.2 mg/dL (8.5-10.1); Creatinine, Blood 1.59 mg/dL (0.60-1.20); Globulin, Blood 3.7 g/dL (2.2-4.0); Potassium, Blood 3.4 mmol/L (3.5-5.5); Total Protein, Blood 5.4 g/dL (6.4-8.2); Troponin I 0.032 ng/mL (0.000-0.040)
== END 2020-10-28 00:17 | disposition home or self-care (01) ==
LOC: ER 20:40
PROVIDERS: Physician Assistant
DX: R60.0 Localized edema (principal); Z79.01 Long term (current) use of anticoagulants; Z79.899 Other long term (current) drug therapy; Z91.013 Allergy to seafood; Z88.8 Allergy status to other drugs, medicaments and biological substances
CPT/HCPCS: 36415; 71046; 80053; 83880; 84484; 85025; 93005; 93010; 96374; 99284-25; J1940

== ENCOUNTER 2020-11-06 10:01 | Observation (INO) | payer OTHER, MEDICARE | END 2020-11-07 17:40 | disposition home or self-care (01) | LOC: ER 10:01 → MEDS 10:02 | PROVIDERS: ADMIT Family Medicine | DX: E87.6 Hypokalemia (principal); R07.9 Chest pain, unspecified; R79.89 Other specified abnormal findings of blood chemistry; E87.1 Hypo-osmolality and hyponatremia; I45.6 Pre-excitation syndrome; I13.0 Hypertensive heart and chronic kidney disease with heart failure and stage 1 through stage 4 chronic kidney disease, or unspecified chronic kidney disease; I50.32 Chronic diastolic (congestive) heart failure; N18.30 Chronic kidney disease, stage 3 unspecified; N17.9 Acute kidney failure, unspecified; J81.1 Chronic pulmonary edema; E78.5 Hyperlipidemia, unspecified; G25.81 Restless legs syndrome; N25.81 Secondary hyperparathyroidism of renal origin; D72.829 Elevated white blood cell count, unspecified; E66.9 Obesity, unspecified; Z88.8 Allergy status to other drugs, medicaments and biological substances; Z91.040 Latex allergy status; Z91.013 Allergy to seafood; Z79.01 Long term (current) use of anticoagulants; Z68.33 Body mass index [BMI] 33.0-33.9, adult ==

== ENCOUNTER 2020-11-10 21:00 | Emergency (ER) | payer OTHER, MEDICARE ==
[~2020-11-10] VITALS: Ht 188 cm; Wt 120.2 kg
[~2020-11-10 21:00] MED LIST changes: +ASPI81CH PO; +Acetaminophen650 M1 PO; +Prednisone20 MG PO
[2020-11-10 21:36] LABS: BASOPHILS ABSOLUTE AUTO 0.03 K/mm3 (0.00-0.23); BASOPHILS PERCENT AUTO 0 % (0-2); EOSINOPHILS ABSOLUTE AUTO 0.24 K/mm3 (0.00-0.68); EOSINOPHILS PERCENT AUTO 2 % (0-6); Hematocrit 44.1 % (37.0-53.0); Hemoglobin 15.1 g/dL (13.5-17.5); IMMATURE GRAN ABSOLUTE AUTO 1.08 K/mm3 (0.00-0.10); IMMATURE GRAN PERCENT AUTO 9 % (0-1); LYMPHOCYTES ABSOLUTE AUTO 1.92 K/mm3 (0.84-5.20); LYMPHOCYTES PERCENT AUTO 16 % (21-46); MONOCYTES ABSOLUTE AUTO 1.16 K/mm3 (0.16-1.47); MONOCYTES PERCENT AUTO 10 % (4-13); Mean Corpuscular HGB 30.3 pg (26.0-34.0); Mean Corpuscular HGB Conc 34.2 g/dL (31.5-36.5); Mean Corpuscular Volume 88 fL (80-100); Mean Platelet Volume 10.1 fL (9.1-12.4); NEUTROPHILS ABSOLUTE AUTO 7.69 K/mm3 (1.96-9.15); NEUTROPHILS PERCENT AUTO 64 % (41-73); Platelet Count 283 K/mm3 (150-400); RDW Coefficient Variation 14.3 % (11.7-14.2); RDW Standard Deviation 45.7 fL (35.1-46.3); Red Blood Cell Count 4.99 M/mm3 (4.30-5.90); White Blood Cell Count 12.12 K/mm3 (4.00-11.30)
[2020-11-10 21:53] LABS: BAND PERCENT MAN 3 % (0-8); BASOPHILS PERCENT MAN 0 % (0-2); EOSINOPHILS ABSOLUTE MAN 0.24 K/mm3 (0.00-0.68); EOSINOPHILS PERCENT MAN 2 % (0-6); LYMPHOCYTES PERCENT MAN 19 % (21-46); METAMYELOCYTE ABSOLUTE MAN 0.36 K/mm3 (0.00-0.00); METAMYELOCYTE PERCENT MAN 3 % (0-0); MONOCYTES ABSOLUTE MAN 0.48 K/mm3 (0.16-1.47); MONOCYTES PERCENT MAN 4 % (4-13); MYELOCYTE ABSOLUTE MAN 0.24 K/mm3 (0.00-0.00); MYELOCYTE PERCENT MAN 2 % (0-0); NEUTROPHILS ABSOLUTE MAN 8.48 K/mm3 (1.96-9.15); SEG NEUTROPHILS PERCENT MAN 67 % (41-73); TOTAL CELLS COUNTED 100
[2020-11-10 21:55] LABS: Alanine Aminotransfer (ALT/SGP 40 U/L (12-78); Albumin/Globulin Ratio 0.6 (0.8-1.8); Alk Phos 52 U/L (50-136); Anion Gap 8 mmol/L (6-16); Aspartate Aminotrans (AST/SGOT 26 U/L (12-37); Bilirubin, Total 0.3 mg/dL (0.1-1.0); Blood Urea Nitrogen 59 mg/dL (8-24); Bun/Creatinine Ratio 29.6 (12.0-20.0); CO2, Blood 28 mmol/L (21-32); Calcium, Blood 8.4 mg/dL (8.5-10.1); Chloride, Blood 101 mmol/L (98-108); Creatinine, Blood 1.99 mg/dL (0.60-1.20); Globulin, Blood 3.6 g/dL (2.2-4.0); Glomerular Filtration Rate 34 (60-); Glucose, Blood 156 mg/dL (70-99); Potassium, Blood 3.3 mmol/L (3.5-5.5); Sodium, Blood 137 mmol/L (136-145); Total Protein, Blood 5.6 g/dL (6.4-8.2); Troponin I <0.015 ng/mL (0.000-0.040)
[2020-11-10] MEDS ORDERED: BUME2 PO (22:43)
== END 2020-11-11 01:00 | disposition home or self-care (01) ==
LOC: ER 21:00
PROVIDERS: Physician Assistant
DX: R07.9 Chest pain, unspecified (principal); Z79.01 Long term (current) use of anticoagulants; Z79.899 Other long term (current) drug therapy; Z79.52 Long term (current) use of systemic steroids; Z91.040 Latex allergy status; Z88.8 Allergy status to other drugs, medicaments and biological substances
CPT/HCPCS: 71046; 80053; 84484; 85025; 93005; 93010; 96361; 96374; 99285-25; J3010; J7030

== ENCOUNTER 2020-11-21 14:42 | Emergency (ER) | payer OTHER ==
[~2020-11-21] VITALS: Ht 188 cm; Wt 117.9 kg
[~2020-11-21 14:42] MED LIST changes: +BUME2 PO
[2020-11-21 15:51] LABS: Hematocrit 41.6 % (37.0-53.0); Hemoglobin 14.4 g/dL (13.5-17.5); Mean Corpuscular HGB 30.8 pg (26.0-34.0); Mean Corpuscular HGB Conc 34.6 g/dL (31.5-36.5); Mean Corpuscular Volume 89 fL (80-100); Mean Platelet Volume 9.8 fL (9.1-12.4); Platelet Count 219 K/mm3 (150-400); RDW Coefficient Variation 14.2 % (11.7-14.2); RDW Standard Deviation 46.1 fL (35.1-46.3); Red Blood Cell Count 4.67 M/mm3 (4.30-5.90)
[2020-11-21 16:10] LABS: Albumin, Blood 2.1 g/dL (3.4-5.0); Albumin/Globulin Ratio 0.6 (0.8-1.8); Bilirubin, Total 0.2 mg/dL (0.1-1.0); Bun/Creatinine Ratio 24.9 (12.0-20.0); Calcium, Blood 8.8 mg/dL (8.5-10.1); Creatinine, Blood 1.89 mg/dL (0.60-1.20); Globulin, Blood 3.7 g/dL (2.2-4.0); Magnesium, Blood 1.5 mg/dL (1.6-2.4); Phosphorus, Blood 3.3 mg/dL (2.5-4.9); Potassium, Blood 2.7 mmol/L (3.5-5.5); Total Protein, Blood 5.8 g/dL (6.4-8.2)
[2020-11-21 16:13] LABS: BAND PERCENT MAN 2 % (0-8); BASOPHILS PERCENT MAN 0 % (0-2); EOSINOPHILS ABSOLUTE MAN 0.36 K/mm3 (0.00-0.68); EOSINOPHILS PERCENT MAN 3 % (0-6); LYMPHOCYTES ABSOLUTE MAN 1.32 K/mm3 (0.84-5.20); LYMPHOCYTES PERCENT MAN 11 % (21-46); METAMYELOCYTE ABSOLUTE MAN 0.24 K/mm3 (0.00-0.00); METAMYELOCYTE PERCENT MAN 2 % (0-0); MONOCYTES ABSOLUTE MAN 0.48 K/mm3 (0.16-1.47); MONOCYTES PERCENT MAN 4 % (4-13); SEG NEUTROPHILS PERCENT MAN 78 % (41-73); TOTAL CELLS COUNTED 100
== END 2020-11-21 23:20 | disposition home or self-care (01) ==
LOC: ER 14:42
PROVIDERS: Physician Assistant
DX: E87.6 Hypokalemia (principal); E83.42 Hypomagnesemia; I95.1 Orthostatic hypotension; I13.0 Hypertensive heart and chronic kidney disease with heart failure and stage 1 through stage 4 chronic kidney disease, or unspecified chronic kidney disease; I50.9 Heart failure, unspecified; N18.30 Chronic kidney disease, stage 3 unspecified; E78.5 Hyperlipidemia, unspecified; Z79.899 Other long term (current) drug therapy; Z91.013 Allergy to seafood; Z91.040 Latex allergy status; Z88.8 Allergy status to other drugs, medicaments and biological substances; Z79.82 Long term (current) use of aspirin; Z79.890 Hormone replacement therapy
CPT/HCPCS: 36415; 71046; 80053; 83735; 84100; 84484; 85025; 93005; 93010; 96365; 96366; 96368; 99285-25; A9270; J3475; J3480; J7030

== ENCOUNTER 2020-12-06 19:26 | Emergency (ER) | payer OTHER ==
[~2020-12-06] VITALS: Ht 188 cm; Wt 117.9 kg
[2020-12-06 20:35] LABS: EOSINOPHILS ABSOLUTE AUTO 0.02 K/mm3 (0.00-0.68); EOSINOPHILS PERCENT AUTO 0 % (0-6); IMMATURE GRAN ABSOLUTE AUTO 0.86 K/mm3 (0.00-0.10); IMMATURE GRAN PERCENT AUTO 8 % (0-1); LYMPHOCYTES ABSOLUTE AUTO 0.73 K/mm3 (0.84-5.20); LYMPHOCYTES PERCENT AUTO 7 % (21-46); MONOCYTES ABSOLUTE AUTO 0.43 K/mm3 (0.16-1.47); MONOCYTES PERCENT AUTO 4 % (4-13); Mean Corpuscular HGB 30.8 pg (26.0-34.0); Mean Corpuscular HGB Conc 33.3 g/dL (31.5-36.5); Mean Corpuscular Volume 93 fL (80-100); Mean Platelet Volume 9.6 fL (9.1-12.4); NEUTROPHILS ABSOLUTE AUTO 8.31 K/mm3 (1.96-9.15); NEUTROPHILS PERCENT AUTO 80 % (41-73); Platelet Count 258 K/mm3 (150-400); RDW Coefficient Variation 14.6 % (11.7-14.2); Red Blood Cell Count 4.54 M/mm3 (4.30-5.90); White Blood Cell Count 10.37 K/mm3 (4.00-11.30)
[2020-12-06 20:36] LABS: BASOPHILS ABSOLUTE AUTO 0.02 K/mm3 (0.00-0.23); BASOPHILS PERCENT AUTO 0 % (0-2)
[2020-12-06 20:50] LABS: Alanine Aminotransfer (ALT/SGP 39 U/L (12-78); Albumin, Blood 2.4 g/dL (3.4-5.0); Albumin/Globulin Ratio 0.6 (0.8-1.8); Alk Phos 52 U/L (50-136); Anion Gap 8 mmol/L (6-16); Aspartate Aminotrans (AST/SGOT 19 U/L (12-37); Bilirubin, Total 0.3 mg/dL (0.1-1.0); Blood Urea Nitrogen 64 mg/dL (8-24); Bun/Creatinine Ratio 25.4 (12.0-20.0); CO2, Blood 24 mmol/L (21-32); Calcium, Blood 8.9 mg/dL (8.5-10.1); Chloride, Blood 106 mmol/L (98-108); Creatinine, Blood 2.52 mg/dL (0.60-1.20); Globulin, Blood 3.9 g/dL (2.2-4.0); Glomerular Filtration Rate 26 (60-); Glucose, Blood 134 mg/dL (70-99); Sodium, Blood 138 mmol/L (136-145); Total Protein, Blood 6.3 g/dL (6.4-8.2); Troponin I <0.015 ng/mL (0.000-0.040)
[2020-12-06 20:58] LABS: BAND PERCENT MAN 4 % (0-8); BASOPHILS PERCENT MAN 1 % (0-2); EOSINOPHILS PERCENT MAN 0 % (0-6); LYMPHOCYTES % ATYPICAL MANUAL 1 % (0-0); LYMPHOCYTES ABSOLUTE MAN 0.31 K/mm3 (0.84-5.20); LYMPHOCYTES PERCENT MAN 2 % (21-46); METAMYELOCYTE ABSOLUTE MAN 0.51 K/mm3 (0.00-0.00); METAMYELOCYTE PERCENT MAN 5 % (0-0); MONOCYTES ABSOLUTE MAN 0.31 K/mm3 (0.16-1.47); MONOCYTES PERCENT MAN 3 % (4-13); MYELOCYTE PERCENT MAN 1 % (0-0); NEUTROPHILS ABSOLUTE MAN 9.02 K/mm3 (1.96-9.15); SEG NEUTROPHILS PERCENT MAN 83 % (41-73); TOTAL CELLS COUNTED 100
== END 2020-12-06 23:50 | disposition home or self-care (01) ==
LOC: ER 19:26
PROVIDERS: Physician Assistant
DX: R55 Syncope and collapse (principal); N17.9 Acute kidney failure, unspecified; I13.0 Hypertensive heart and chronic kidney disease with heart failure and stage 1 through stage 4 chronic kidney disease, or unspecified chronic kidney disease; I50.9 Heart failure, unspecified; N18.30 Chronic kidney disease, stage 3 unspecified; N25.81 Secondary hyperparathyroidism of renal origin; G25.81 Restless legs syndrome; I25.10 Atherosclerotic heart disease of native coronary artery without angina pectoris; Z79.899 Other long term (current) drug therapy; Z79.01 Long term (current) use of anticoagulants; Z79.82 Long term (current) use of aspirin
CPT/HCPCS: 36415; 71046; 80053; 84484; 85025; 93005; 93010; 96360; 99284-25; J7030

== ENCOUNTER 2021-04-05 21:27 | Emergency (ER) | payer OTHER ==
[~2021-04-05] VITALS: Ht 188 cm; Wt 127.0 kg
[2021-04-05 22:05] LABS: BASOPHILS ABSOLUTE AUTO 0.07 K/mm3 (0.00-0.23); BASOPHILS PERCENT AUTO 1 % (0-2); EOSINOPHILS ABSOLUTE AUTO 0.15 K/mm3 (0.00-0.68); EOSINOPHILS PERCENT AUTO 1 % (0-6); Hematocrit 41.6 % (37.0-53.0); Hemoglobin 13.8 g/dL (13.5-17.5); IMMATURE GRAN ABSOLUTE AUTO 0.52 K/mm3 (0.00-0.10); IMMATURE GRAN PERCENT AUTO 5 % (0-1); LYMPHOCYTES ABSOLUTE AUTO 1.49 K/mm3 (0.84-5.20); LYMPHOCYTES PERCENT AUTO 13 % (21-46); MONOCYTES ABSOLUTE AUTO 1.12 K/mm3 (0.16-1.47); MONOCYTES PERCENT AUTO 10 % (4-13); Mean Corpuscular HGB 30.3 pg (26.0-34.0); Mean Corpuscular HGB Conc 33.2 g/dL (31.5-36.5); Mean Corpuscular Volume 91 fL (80-100); Mean Platelet Volume 9.9 fL (9.1-12.4); NEUTROPHILS ABSOLUTE AUTO 8.08 K/mm3 (1.96-9.15); NEUTROPHILS PERCENT AUTO 71 % (41-73); Platelet Count 219 K/mm3 (150-400); RDW Coefficient Variation 13.8 % (11.7-14.2); RDW Standard Deviation 46.3 fL (35.1-46.3); Red Blood Cell Count 4.56 M/mm3 (4.30-5.90); White Blood Cell Count 11.43 K/mm3 (4.00-11.30)
[2021-04-05 23:10] LABS: Alanine Aminotransfer (ALT/SGP 34 U/L (12-78); Albumin, Blood 2.2 g/dL (3.4-5.0); Albumin/Globulin Ratio 0.7 (0.8-1.8); Alk Phos 53 U/L (50-136); Anion Gap 7 mmol/L (6-16); Aspartate Aminotrans (AST/SGOT 16 U/L (12-37); Bilirubin, Total 0.3 mg/dL (0.1-1.0); Blood Urea Nitrogen 37 mg/dL (8-24); Bun/Creatinine Ratio 23.1 (12.0-20.0); CO2, Blood 21 mmol/L (21-32); Calcium, Blood 7.9 mg/dL (8.5-10.1); Chloride, Blood 114 mmol/L (98-108); Glomerular Filtration Rate 43 (60-); Glucose, Blood 121 mg/dL (70-99); Potassium, Blood 4.3 mmol/L (3.5-5.5); Sodium, Blood 142 mmol/L (136-145); Total Protein, Blood 5.2 g/dL (6.4-8.2); Troponin I <0.015 ng/mL (0.000-0.040)
== END 2021-04-06 00:09 | disposition home or self-care (01) ==
LOC: ER 21:27
PROVIDERS: Emergency Medicine
DX: R07.9 Chest pain, unspecified (principal); I13.0 Hypertensive heart and chronic kidney disease with heart failure and stage 1 through stage 4 chronic kidney disease, or unspecified chronic kidney disease; I50.9 Heart failure, unspecified; N18.30 Chronic kidney disease, stage 3 unspecified; D63.1 Anemia in chronic kidney disease; E78.5 Hyperlipidemia, unspecified
CPT/HCPCS: 36415; 71046; 80053; 83690; 84484; 85025; 93005; 93010

== ENCOUNTER 2021-04-26 04:22 | Emergency (ER) | payer OTHER ==
[~2021-04-26] VITALS: Ht 188 cm; Wt 122.5 kg
[2021-04-26 04:48] LABS: Hematocrit 47.8 % (37.0-53.0); Hemoglobin 15.9 g/dL (13.5-17.5); Mean Corpuscular HGB 30.3 pg (26.0-34.0); Mean Corpuscular HGB Conc 33.3 g/dL (31.5-36.5); Mean Corpuscular Volume 91 fL (80-100); Mean Platelet Volume 10.1 fL (9.1-12.4); Platelet Count 171 K/mm3 (150-400); RDW Coefficient Variation 14.4 % (11.7-14.2); RDW Standard Deviation 48.4 fL (35.1-46.3); Red Blood Cell Count 5.25 M/mm3 (4.30-5.90); White Blood Cell Count 11.94 K/mm3 (4.00-11.30)
[2021-04-26 05:29] LABS: BAND PERCENT MAN 4 % (0-8); BASOPHILS ABSOLUTE MAN 0.23 K/mm3 (0.00-0.23); BASOPHILS PERCENT MAN 2 % (0-2); EOSINOPHILS ABSOLUTE MAN 0.47 K/mm3 (0.00-0.68); EOSINOPHILS PERCENT MAN 4 % (0-6); LYMPHOCYTES ABSOLUTE MAN 1.79 K/mm3 (0.84-5.20); LYMPHOCYTES PERCENT MAN 15 % (21-46); METAMYELOCYTE ABSOLUTE MAN 0.23 K/mm3 (0.00-0.00); METAMYELOCYTE PERCENT MAN 2 % (0-0); MONOCYTES ABSOLUTE MAN 0.83 K/mm3 (0.16-1.47); MONOCYTES PERCENT MAN 7 % (4-13); MYELOCYTE ABSOLUTE MAN 0.35 K/mm3 (0.00-0.00); MYELOCYTE PERCENT MAN 3 % (0-0); NEUTROPHILS ABSOLUTE MAN 7.99 K/mm3 (1.96-9.15); SEG NEUTROPHILS PERCENT MAN 63 % (41-73); TOTAL CELLS COUNTED 100
[2021-04-26 05:40] LABS: Albumin, Blood 2.5 g/dL (3.4-5.0); Albumin/Globulin Ratio 0.6 (0.8-1.8); Bilirubin, Total 0.6 mg/dL (0.1-1.0); Bun/Creatinine Ratio 20.9 (12.0-20.0); Calcium, Blood 8.7 mg/dL (8.5-10.1); Creatinine, Blood 1.77 mg/dL (0.60-1.20); Potassium, Blood 4.4 mmol/L (3.5-5.5); Total Protein, Blood 6.5 g/dL (6.4-8.2); Troponin I 0.04 ng/mL (0.000-0.040)
== END 2021-04-26 09:01 | disposition home or self-care (01) ==
LOC: ER 04:22
PROVIDERS: Student in an Organized Health Care Education/Training Program
DX: R07.9 Chest pain, unspecified (principal); I13.0 Hypertensive heart and chronic kidney disease with heart failure and stage 1 through stage 4 chronic kidney disease, or unspecified chronic kidney disease; N18.30 Chronic kidney disease, stage 3 unspecified; I50.9 Heart failure, unspecified; E78.5 Hyperlipidemia, unspecified; Z79.899 Other long term (current) drug therapy; Z91.040 Latex allergy status
CPT/HCPCS: 36415; 71046; 80053; 83735; 84484; 85025; 93005; 93010; 99285-25

== ENCOUNTER 2021-05-02 01:29 | Emergency (ER) | payer OTHER ==
[~2021-05-02] VITALS: Ht 188 cm; Wt 122.5 kg
[2021-05-02 03:07] LABS: Hemoglobin 14.1 g/dL (13.5-17.5); Mean Corpuscular HGB 30.1 pg (26.0-34.0); Mean Corpuscular HGB Conc 32.8 g/dL (31.5-36.5); Mean Corpuscular Volume 92 fL (80-100); Mean Platelet Volume 9.4 fL (9.1-12.4); Platelet Count 192 K/mm3 (150-400); RDW Coefficient Variation 14.5 % (11.7-14.2); RDW Standard Deviation 48.7 fL (35.1-46.3); Red Blood Cell Count 4.69 M/mm3 (4.30-5.90); White Blood Cell Count 11.53 K/mm3 (4.00-11.30)
[2021-05-02 03:26] LABS: Anion Gap 7 mmol/L (6-16); Blood Urea Nitrogen 31 mg/dL (8-24); Bun/Creatinine Ratio 23.8 (12.0-20.0); CO2, Blood 21 mmol/L (21-32); Calcium, Blood 8.3 mg/dL (8.5-10.1); Chloride, Blood 112 mmol/L (98-108); Glomerular Filtration Rate 55 (60-); Glucose, Blood 99 mg/dL (70-99); Potassium, Blood 4.3 mmol/L (3.5-5.5); Sodium, Blood 140 mmol/L (136-145); Troponin I <0.015 ng/mL (0.000-0.040)
[2021-05-02 04:35] LABS: BAND PERCENT MAN 6 % (0-8); BASOPHILS PERCENT MAN 0 % (0-2); EOSINOPHILS ABSOLUTE MAN 0.23 K/mm3 (0.00-0.68); EOSINOPHILS PERCENT MAN 2 % (0-6); LYMPHOCYTES ABSOLUTE MAN 1.61 K/mm3 (0.84-5.20); LYMPHOCYTES PERCENT MAN 14 % (21-46); METAMYELOCYTE ABSOLUTE MAN 0.46 K/mm3 (0.00-0.00); METAMYELOCYTE PERCENT MAN 4 % (0-0); MONOCYTES ABSOLUTE MAN 1.15 K/mm3 (0.16-1.47); MONOCYTES PERCENT MAN 10 % (4-13); MYELOCYTE ABSOLUTE MAN 0.34 K/mm3 (0.00-0.00); MYELOCYTE PERCENT MAN 3 % (0-0); NEUTROPHILS ABSOLUTE MAN 7.72 K/mm3 (1.96-9.15); SEG NEUTROPHILS PERCENT MAN 61 % (41-73); TOTAL CELLS COUNTED 100
== END 2021-05-02 04:33 | disposition home or self-care (01) ==
LOC: ER 01:29
PROVIDERS: Student in an Organized Health Care Education/Training Program
DX: R07.81 Pleurodynia (principal); E78.5 Hyperlipidemia, unspecified; D63.8 Anemia in other chronic diseases classified elsewhere; I13.0 Hypertensive heart and chronic kidney disease with heart failure and stage 1 through stage 4 chronic kidney disease, or unspecified chronic kidney disease; N18.30 Chronic kidney disease, stage 3 unspecified; I50.9 Heart failure, unspecified; N25.81 Secondary hyperparathyroidism of renal origin; Z86.2 Personal history of diseases of the blood and blood-forming organs and certain disorders involving the immune mechanism; E87.6 Hypokalemia; F17.200 Nicotine dependence, unspecified, uncomplicated; Z88.5 Allergy status to narcotic agent; Z88.8 Allergy status to other drugs, medicaments and biological substances; Z91.040 Latex allergy status; Z91.013 Allergy to seafood; Z86.79 Personal history of other diseases of the circulatory system; Z87.441 Personal history of nephrotic syndrome
CPT/HCPCS: 36415; 71101; 80048; 84484; 85025; 93005; 93010; 99284-25

== ENCOUNTER 2021-05-16 17:05 | Emergency (ER) | payer OTHER ==
[~2021-05-16] VITALS: Ht 188 cm; Wt 127.9 kg
[2021-05-16 17:51] LABS: Hematocrit 50.1 % (37.0-53.0); Hemoglobin 16.9 g/dL (13.5-17.5); Mean Corpuscular HGB 30.1 pg (26.0-34.0); Mean Corpuscular HGB Conc 33.7 g/dL (31.5-36.5); Mean Corpuscular Volume 89 fL (80-100); Mean Platelet Volume 9.9 fL (9.1-12.4); Platelet Count 256 K/mm3 (150-400); RDW Coefficient Variation 14.4 % (11.7-14.2); RDW Standard Deviation 46.9 fL (35.1-46.3); Red Blood Cell Count 5.62 M/mm3 (4.30-5.90); White Blood Cell Count 12.34 K/mm3 (4.00-11.30)
[2021-05-16 18:18] LABS: Albumin/Globulin Ratio 0.9 (0.8-1.8); Bilirubin, Total 0.6 mg/dL (0.1-1.0); Bun/Creatinine Ratio 25.4 (12.0-20.0); Calcium, Blood 8.7 mg/dL (8.5-10.1); Creatinine, Blood 1.81 mg/dL (0.60-1.20); Globulin, Blood 3.2 g/dL (2.2-4.0); Potassium, Blood 3.8 mmol/L (3.5-5.5); Total Protein, Blood 6.2 g/dL (6.4-8.2)
[2021-05-16 18:38] LABS: BAND PERCENT MAN 1 % (0-8); BASOPHILS PERCENT MAN 0 % (0-2); EOSINOPHILS ABSOLUTE MAN 0.24 K/mm3 (0.00-0.68); EOSINOPHILS PERCENT MAN 2 % (0-6); LYMPHOCYTES ABSOLUTE MAN 1.97 K/mm3 (0.84-5.20); LYMPHOCYTES PERCENT MAN 16 % (21-46); METAMYELOCYTE ABSOLUTE MAN 0.12 K/mm3 (0.00-0.00); METAMYELOCYTE PERCENT MAN 1 % (0-0); MONOCYTES ABSOLUTE MAN 1.11 K/mm3 (0.16-1.47); MONOCYTES PERCENT MAN 9 % (4-13); MYELOCYTE ABSOLUTE MAN 0.49 K/mm3 (0.00-0.00); MYELOCYTE PERCENT MAN 4 % (0-0); NEUTROPHILS ABSOLUTE MAN 8.39 K/mm3 (1.96-9.15); SEG NEUTROPHILS PERCENT MAN 67 % (41-73); TOTAL CELLS COUNTED 100
[2021-05-16 19:14] LABS: Source, Urine Clean Catch
[2021-05-16 19:32] LABS: Bilirubin, Urine Neg (Neg); Blood, Urine 1+ (Neg); Glucose Qualitative, Urine Neg (Neg); Ketones, Urine Neg (Neg); Leukocyte Esterase, Urine Neg (Neg); Nitrite, Urine Neg (Neg); Protein, Urine 4+ (Neg); Urobilinogen, Urine NORM (Normal)
[2021-05-16 19:34] LABS: Appearance, Urine Clear (Clear); Color, Urine Pale Yellow (P-Yellow)
[2021-05-16 19:35] LABS: Bacteria Rare /hpf; Squamous Epithelial Cells Rare /hpf (Few); White Blood Cells, Urine 0-2 /hpf (0-5)
== END 2021-05-16 20:03 | disposition home or self-care (01) ==
LOC: ER 17:05
PROVIDERS: Emergency Medicine; Physician Assistant
DX: R53.1 Weakness (principal); I13.0 Hypertensive heart and chronic kidney disease with heart failure and stage 1 through stage 4 chronic kidney disease, or unspecified chronic kidney disease; N18.30 Chronic kidney disease, stage 3 unspecified; D63.8 Anemia in other chronic diseases classified elsewhere; I95.9 Hypotension, unspecified; E78.5 Hyperlipidemia, unspecified; E87.6 Hypokalemia; I50.9 Heart failure, unspecified; Z86.79 Personal history of other diseases of the circulatory system; Z88.5 Allergy status to narcotic agent; Z91.013 Allergy to seafood; Z91.040 Latex allergy status; Z88.8 Allergy status to other drugs, medicaments and biological substances
CPT/HCPCS: 36415; 71046; 80053; 81001; 83690; 83880; 84484; 85025; 93005; 93010; 99285-25

== ENCOUNTER 2021-08-18 17:04 | Emergency (ER) | payer OTHER ==
[~2021-08-18] VITALS: Ht 188 cm; Wt 124.7 kg
[2021-08-18 18:07] LABS: BASOPHILS ABSOLUTE AUTO 0.03 K/mm3 (0.00-0.23); BASOPHILS PERCENT AUTO 0 % (0-2); EOSINOPHILS ABSOLUTE AUTO 0.09 K/mm3 (0.00-0.68); EOSINOPHILS PERCENT AUTO 1 % (0-6); Hematocrit 41.2 % (37.0-53.0); Hemoglobin 14.4 g/dL (13.5-17.5); IMMATURE GRAN PERCENT AUTO 4 % (0-1); LYMPHOCYTES ABSOLUTE AUTO 1.07 K/mm3 (0.84-5.20); LYMPHOCYTES PERCENT AUTO 9 % (21-46); MONOCYTES ABSOLUTE AUTO 0.94 K/mm3 (0.16-1.47); MONOCYTES PERCENT AUTO 8 % (4-13); Mean Corpuscular HGB 31.2 pg (26.0-34.0); Mean Corpuscular Volume 89 fL (80-100); Mean Platelet Volume 10.1 fL (9.1-12.4); NEUTROPHILS ABSOLUTE AUTO 8.85 K/mm3 (1.96-9.15); NEUTROPHILS PERCENT AUTO 77 % (41-73); Platelet Count 179 K/mm3 (150-400); RDW Coefficient Variation 13.2 % (11.7-14.2); RDW Standard Deviation 43.4 fL (35.1-46.3); Red Blood Cell Count 4.61 M/mm3 (4.30-5.90); White Blood Cell Count 11.48 K/mm3 (4.00-11.30)
[2021-08-18 18:32] LABS: Source, Urine Voided
[2021-08-18 18:33] LABS: Free Thyroxine 0.98 ng/dL (0.70-1.60); Magnesium, Blood 2.2 mg/dL (1.6-2.4)
[2021-08-18 18:38] LABS: Albumin, Blood 2.7 g/dL (3.4-5.0); Albumin/Globulin Ratio 0.9 (0.8-1.8); Bilirubin, Total 0.6 mg/dL (0.1-1.0); Bun/Creatinine Ratio 23.8 (12.0-20.0); Calcium, Blood 8.1 mg/dL (8.5-10.1); Creatinine, Blood 1.81 mg/dL (0.60-1.20); Globulin, Blood 3.1 g/dL (2.2-4.0); Potassium, Blood 3.7 mmol/L (3.5-5.5); Thyroid Stimulating Hormone 0.51 uIU/mL (0.360-4.800); Total Protein, Blood 5.8 g/dL (6.4-8.2)
[2021-08-18 18:40] LABS: Appearance, Urine Clear (Clear); Bilirubin, Urine Neg (Neg); Blood, Urine 1+ (Neg); Color, Urine Yellow (P-Yellow); Glucose Qualitative, Urine 4+ (Neg); Ketones, Urine Neg (Neg); Leukocyte Esterase, Urine Neg (Neg); Nitrite, Urine Neg (Neg); Protein, Urine 3+ (Neg); Specific Gravity, Urine 1.015 (1.003-1.022); Urobilinogen, Urine NORM (Normal)
[2021-08-18 19:24] LABS: Bacteria Few /hpf; Red Blood Cells, Urine 0-2 /hpf (0-2); Squamous Epithelial Cells Rare /hpf (Few); White Blood Cells, Urine 0-2 /hpf (0-5)
== END 2021-08-18 19:35 | disposition home or self-care (01) ==
LOC: ER 17:04
PROVIDERS: Emergency Medicine
DX: R53.1 Weakness (principal); R73.9 Hyperglycemia, unspecified; I13.0 Hypertensive heart and chronic kidney disease with heart failure and stage 1 through stage 4 chronic kidney disease, or unspecified chronic kidney disease; N18.30 Chronic kidney disease, stage 3 unspecified; I50.9 Heart failure, unspecified; D63.8 Anemia in other chronic diseases classified elsewhere; E78.5 Hyperlipidemia, unspecified; F32.A Depression, unspecified; I25.10 Atherosclerotic heart disease of native coronary artery without angina pectoris
CPT/HCPCS: 71045; 80053; 81001; 83735; 84439; 84443; 85025; 99285-25

== ENCOUNTER 2021-08-24 02:16 | Inpatient (IN) | payer OTHER ==
[~2021-08-24] VITALS: Ht 188 cm; Wt 122.8 kg
[2021-08-24 02:37] LABS: BASOPHILS ABSOLUTE AUTO 0.05 K/mm3 (0.00-0.23); BASOPHILS PERCENT AUTO 0 % (0-2); EOSINOPHILS ABSOLUTE AUTO 0.01 K/mm3 (0.00-0.68); EOSINOPHILS PERCENT AUTO 0 % (0-6); Hematocrit 43.1 % (37.0-53.0); Hemoglobin 14.7 g/dL (13.5-17.5); IMMATURE GRAN ABSOLUTE AUTO 0.44 K/mm3 (0.00-0.10); IMMATURE GRAN PERCENT AUTO 3 % (0-1); LYMPHOCYTES ABSOLUTE AUTO 0.52 K/mm3 (0.84-5.20); LYMPHOCYTES PERCENT AUTO 4 % (21-46); MONOCYTES ABSOLUTE AUTO 0.55 K/mm3 (0.16-1.47); MONOCYTES PERCENT AUTO 4 % (4-13); Mean Corpuscular HGB Conc 34.1 g/dL (31.5-36.5); Mean Corpuscular Volume 91 fL (80-100); Mean Platelet Volume 10.5 fL (9.1-12.4); NEUTROPHILS ABSOLUTE AUTO 13.12 K/mm3 (1.96-9.15); NEUTROPHILS PERCENT AUTO 89 % (41-73); Platelet Count 156 K/mm3 (150-400); RDW Coefficient Variation 12.7 % (11.7-14.2); RDW Standard Deviation 42.5 fL (35.1-46.3); Red Blood Cell Count 4.74 M/mm3 (4.30-5.90); White Blood Cell Count 14.69 K/mm3 (4.00-11.30)
[2021-08-24 03:05] LABS: Albumin, Blood 2.8 g/dL (3.4-5.0); Albumin/Globulin Ratio 0.9 (0.8-1.8); Bilirubin, Total 0.9 mg/dL (0.1-1.0); Bun/Creatinine Ratio 24.7 (12.0-20.0); Calcium, Blood 8.6 mg/dL (8.5-10.1); Creatinine, Blood 1.54 mg/dL (0.60-1.20); Globulin, Blood 3.1 g/dL (2.2-4.0); Potassium, Blood 4.3 mmol/L (3.5-5.5); Total Protein, Blood 5.9 g/dL (6.4-8.2)
[2021-08-24] MEDS ORDERED: [UNRECOGNIZED DRUG - OTHER] INJ ×2 (03:34)
[2021-08-24 03:45] LABS: Influenza A, PCR NEGATIVE (NEGATIVE); Influenza B, PCR NEGATIVE (NEGATIVE); Resp Syncytial Virus, PCR NEGATIVE (NEGATIVE); SARS-Cov-2 (COVID-19) PCR, MMC NEGATIVE (NEGATIVE)
[2021-08-24] MEDS ORDERED: CALC.25 PO ×2 (04:34)
[2021-08-24] MEDS ORDERED: FENO48 PO ×2 (04:35)
[2021-08-24] MEDS ORDERED: ATOR20 PO ×2 (04:36)
[2021-08-24] MEDS ORDERED: Percocet 5-3251 EACH PO ×2 (04:37)
[2021-08-24] MEDS ORDERED: SPIR25 PO ×2 (04:38)
[2021-08-24] MEDS ORDERED: BUME2 PO ×2 (04:38)
[2021-08-24 05:52] LABS: Anti-Xa UFH, PHA Monitoring <0.10 IU/mL; International Normalized Ratio 1.04; Prothrombin Time Results 10.9 Sec (9.7-11.5)
[2021-08-24 06:46] LABS: Glucose, Blood 531 mg/dL (70-99)
[2021-08-24] MEDS ORDERED: POTCHL20ER PO ×2 (08:46)
--- NOTE | 2021-08-24 09:31 | NUR ---
ADMIT PT ARRIVED TO ICU 14 VIA ER BED AT 0830. PT IS AWAKE, ALERT, AND ORIENTED. PT STOOD UP TO TRANSFER TO ICU BED WITH MINIMAL ASSISTANCE. PT COMPLAINS OF SOME DISCOMFORT TO CHEST AND BACK. PT COMPLAINS OF SOB WITH ANY EXERTION. PT DENIES SOB AT REST. PT ON 2L O2 NC. VITAL SIGNS STABLE. INSULIN GTT INFUSING AT 3 UNITS/HR, HEPARIN 18 UNITS/KG/HR, AND NS 100 ML/HR. WILL CONTINUE TO MONITOR.
[2021-08-24 09:40] LABS: Bun/Creatinine Ratio 24.6 (12.0-20.0); Calcium, Blood 8.8 mg/dL (8.5-10.1); Creatinine, Blood 1.34 mg/dL (0.60-1.20); Potassium, Blood 3.9 mmol/L (3.5-5.5)
[2021-08-24 12:58] LABS: Bun/Creatinine Ratio 24.6 (12.0-20.0); Calcium, Blood 8.7 mg/dL (8.5-10.1); Creatinine, Blood 1.26 mg/dL (0.60-1.20)
--- NOTE | 2021-08-24 13:18 | NUR ---
Echocardiogram completed.
[2021-08-24 15:33] LABS: Bun/Creatinine Ratio 24.3 (12.0-20.0); Calcium, Blood 8.6 mg/dL (8.5-10.1); Creatinine, Blood 1.44 mg/dL (0.60-1.20); Potassium, Blood 4.2 mmol/L (3.5-5.5)
--- NOTE | 2021-08-24 17:19 | NUR ---
SHIFT SUMMARY NO ACUTE CHANGES THIS SHIFT. PT HAS REMAINED AWAKE, ALERT, AND ORIENTED. PT FOLLOWS DIRECTIONS WELL. PT IS TALKATIVE AND PLEASANT. PT COMPLAINS OF SOME PAIN TO LOWER BACK. PT COMPLAINS OF SOB AT TIMES. VITAL SIGNS REMAIN STABLE ON 2L O2 NC. SPO2 >92%. PT WITH HEPARIN INFUSING AT 15 UNITS/KG/HR AND NS TKO. PT USING URINAL TO VOID CLEAR YELLOW URINE. PT REPOSITIONS SELF IN BED INDEPENDENTLY. PT TAKING IN PO INTAKE WELL. WILL CONTINUE TO MONITOR AND REPORT OFF TO ONCOMING RN.
--- NOTE | 2021-08-24 19:00 | NUR ---
ASSUMED CARE PATIENT LYING IN BED AWAKE AND WATCHING TELEVISION. CELL PHONE, CELL PHONE MANAGING PRINCIPAL, GLASSES, AND WATER ON BEDSIDE TABLE IN REACH. PATIENT REPOSITIONS SELF IN BED TO HIGH SIDES FREQUENTLY. 2LPM VIA NC IN PLACE AND URINAL HANGING ON BEDSIDE. CALL LIGHT IN BED WITH PATIENT. HEPARIN INF TO LT FA PERIPHERAL IV @ 15 UNITS/KG/HR FOR WEIGHT OF 100KG. PATIENT IS CALM, PLEASANT, AND COOPERATIVE. ASKS QUESTIONS ABOUT CARE AND HOLDS APPROPRIATE CONVERSATIONS WITH STAFF. REPORT COMPLETED WITH MEEK MATA.
--- NOTE | 2021-08-24 20:32 | NUR ---
INCREASED O2 VIA NC PATIENT SPO2 89-90% WHILE SLEEPING. INCREASED O2 VIA NC FROM 2LP[M TO 4LPM WHILE SLEEPING TO KEEP SPO2 AT OR ABOVE 90%.
[2021-08-25 04:44] LABS: Hematocrit 39.1 % (37.0-53.0); Hemoglobin 13.4 g/dL (13.5-17.5); Mean Corpuscular HGB 31.2 pg (26.0-34.0); Mean Corpuscular HGB Conc 34.3 g/dL (31.5-36.5); Mean Corpuscular Volume 91 fL (80-100); Mean Platelet Volume 10.7 fL (9.1-12.4); Platelet Count 144 K/mm3 (150-400); RDW Coefficient Variation 13.2 % (11.7-14.2); RDW Standard Deviation 43.6 fL (35.1-46.3); Red Blood Cell Count 4.29 M/mm3 (4.30-5.90); White Blood Cell Count 11.98 K/mm3 (4.00-11.30)
[2021-08-25 05:02] LABS: Albumin, Blood 2.3 g/dL (3.4-5.0); Anion Gap 7 mmol/L (6-16); Blood Urea Nitrogen 35 mg/dL (8-24); Bun/Creatinine Ratio 23.3 (12.0-20.0); CO2, Blood 23 mmol/L (21-32); Calcium, Blood 8.4 mg/dL (8.5-10.1); Chloride, Blood 107 mmol/L (98-108); Glomerular Filtration Rate 51 (60-); Glucose, Blood 208 mg/dL (70-99); Phosphorus, Blood 2.2 mg/dL (2.5-4.9); Potassium, Blood 4.2 mmol/L (3.5-5.5); Sodium, Blood 137 mmol/L (136-145)
--- NOTE | 2021-08-25 09:30 | NUR ---
ASSUMED CARE REPORT FROM JOSELUIS EDEN AT 0700. PT RESTING IN BED. A&OX 4. FOLLOWS COMMANDS, ANSWERS QUESTIONS APPROPRIATELY. LUNGS CLEAR, 2L VIA NC, O2 SATS 97%. ST ON MONITOR, RATE 100'S. BP STABLE. HEPARIN GTT D/C'D, XARELTO STARTED. PT ABLE TO USE CALL LIGHT APPROPRIATELY, MAKES NEEDS KNOWN, REPOSITIONS SELF IN BED. WILL CONTINUE TO MONITOR.
--- NOTE | 2021-08-25 12:32 | NUR ---
AMBULATION PT AMBULATED TO BATHROOM IN ICU. ON RA, O2 SATS >95%. PT DID GET TACHYPNEIC AND FATIGUED. STATES THIS NORMAL FOR HIM. PT HAS SHOWER CHAIR AT HOME HE IS UNABLE TO STAND FOR PROLONG PERIODS OF TIME.
--- NOTE | 2021-08-25 16:39 | NUR ---
TRANSFER TO MEDICAL/REPORT TO TENILE NO ACUTE CHANGES THIS SHIFT. O2 REMAINED >95% WHEN AWAKE, OCCASIONALLY 88% WHEN SLEEPING. TRANSFERRED TO MEDICAL FLOOR. ALL BELONGINGS SENT c PT.
--- NOTE | 2021-08-25 17:09 | NUR ---
PATIENT ARRIVED ON THE MEDICAL FLOOR AT 1440. BED IN LOWEST POSITION CALL LIGHT WITHIN REACH
--- NOTE | 2021-08-25 18:43 | NUR ---
PATIENT'S BLOOD GLUCOSE WAS 84 FOR AT DINNER. PATIENT DID NOT RECEIVE SLIDING SCALE INSULIN. GIVEN 5 UNITS TID INSULIN ORDER WITH MEAL PER DR. VEGA.
[2021-08-26 05:11] LABS: Hematocrit 40.9 % (37.0-53.0); Hemoglobin 14.1 g/dL (13.5-17.5); Mean Corpuscular HGB 31.4 pg (26.0-34.0); Mean Corpuscular HGB Conc 34.5 g/dL (31.5-36.5); Mean Corpuscular Volume 91 fL (80-100); Mean Platelet Volume 10.2 fL (9.1-12.4); Platelet Count 149 K/mm3 (150-400); RDW Coefficient Variation 13.2 % (11.7-14.2); RDW Standard Deviation 44.9 fL (35.1-46.3); Red Blood Cell Count 4.49 M/mm3 (4.30-5.90); White Blood Cell Count 12.66 K/mm3 (4.00-11.30)
[2021-08-26 06:03] LABS: Albumin, Blood 2.5 g/dL (3.4-5.0); Anion Gap 8 mmol/L (6-16); Blood Urea Nitrogen 29 mg/dL (8-24); Bun/Creatinine Ratio 20.1 (12.0-20.0); CO2, Blood 22 mmol/L (21-32); Calcium, Blood 8.9 mg/dL (8.5-10.1); Chloride, Blood 107 mmol/L (98-108); Creatinine, Blood 1.44 mg/dL (0.60-1.20); Glomerular Filtration Rate 53 (60-); Glucose, Blood 119 mg/dL (70-99); Phosphorus, Blood 2.7 mg/dL (2.5-4.9); Potassium, Blood 4.2 mmol/L (3.5-5.5); Sodium, Blood 137 mmol/L (136-145)
--- NOTE | 2021-08-26 06:19 | NUR ---
SHIFT SUMMARY - NO ACUTE CHANGES THROUGHOUT THIS SHIFT. PT SLEPT FOR APPX 4-5 HOURS TONIGHT. PT IS CURRENTLY IN BED, IN LOW SEMI FOWLERS POSITION WATCHING TV. TELE IN PLACE - SEE RHYTHM STRIP ON CHART. PT REPORTED SOB WITH EXERTION, OTHERWISE DENIED ANY SOB WHILE IN BED. LS ARE CLEAR THROUGHOUT, PT CONTINUES ON RA. REVIEWED WITH PT PERCOCET SIDE EFFECT OF CONSTIPATION - PT REPORTS HE TAKES TOMATO JUICE FOR THIS - HE REPORTS THIS "IS WHAT HELPS HIM". I ALSO REVIEWED MIRALAX WITH PATIENT, ANOTHER OPTION, IF TOMATO JUICE DOESN'T WORK TODAY. PT IS ANTICIPATING BEING DISCHARGED HOME TODAY. WILL REPORT OFF TO ONCOMING SHIFT, THAT PT WOULD BENEFIT FOR DIABETIC EDUCATION PRIOR TO DISCHARGE TODAY. FLUIDS AT BEDSIDE. CALL LIGHT WITHIN REACH. BED IN LOW POSITION. PT IS COOPERATIVE WITH CARE.
[2021-08-26] MEDS ORDERED: GLIP2.5ER PO ×2 (11:01)
[2021-08-26] MEDS ORDERED: XARELTO20 MG PO ×2 (11:01)
--- NOTE | 2021-08-26 14:42 | NUR ---
1405 DISCHARGE REVIEWED WITH PT. VERBALIZED UNDERSTANDING MEDS AND INST. IV PULLED INTACT BY RONNIE EDEN. TELE REMOVED. PT WHEELED TO DOOR BY [facility]. LEFT 140
--- NOTE | 2021-08-26 14:47 | NUR ---
AGREE WITH STUDENT DOCUMEMNTATION
== END 2021-08-26 14:11 | disposition home or self-care (01) | DRG 299 ==
LOC: ER 02:16 → ICUW 05:29 → ERHOLD 05:29 → ICUW 08:56 → MEDS 08-25 16:38 → ENPENDDIS 08-26 10:37 → MEDS 08-26 14:11
PROVIDERS: Emergency Medicine; Internal Medicine; ADMIT Family Medicine
DX: I82.433 Acute embolism and thrombosis of popliteal vein, bilateral (principal); I26.99 Other pulmonary embolism without acute cor pulmonale; I13.0 Hypertensive heart and chronic kidney disease with heart failure and stage 1 through stage 4 chronic kidney disease, or unspecified chronic kidney disease; I50.32 Chronic diastolic (congestive) heart failure; N25.81 Secondary hyperparathyroidism of renal origin; E87.1 Hypo-osmolality and hyponatremia; Z20.822 Contact with and (suspected) exposure to COVID-19; E83.39 Other disorders of phosphorus metabolism; F32.A Depression, unspecified; N18.30 Chronic kidney disease, stage 3 unspecified; D72.829 Elevated white blood cell count, unspecified; E11.22 Type 2 diabetes mellitus with diabetic chronic kidney disease; E78.5 Hyperlipidemia, unspecified; E11.65 Type 2 diabetes mellitus with hyperglycemia; I25.10 Atherosclerotic heart disease of native coronary artery without angina pectoris; Z68.36 Body mass index [BMI] 36.0-36.9, adult; E66.9 Obesity, unspecified; D63.1 Anemia in chronic kidney disease; G25.81 Restless legs syndrome; Z88.8 Allergy status to other drugs, medicaments and biological substances; Z91.013 Allergy to seafood; Z91.040 Latex allergy status; Z90.49 Acquired absence of other specified parts of digestive tract; Z98.890 Other specified postprocedural states; Z79.899 Other long term (current) drug therapy
CPT/HCPCS: 0241U; 36415; 71045; 71275; 80048; 80053; 80069; 82947; 83036; 83880; 84484; 85025; 85027; 85520; 85610; 93005; 93010; 93306; 93970; 94760; 96365-59; 96366-59; 96375-59; 99285-25; A9270; J1644; J1815; J3010; J7030; J7060; Q9967

== ENCOUNTER 2021-08-29 16:02 | Emergency (ER) | payer OTHER ==
[~2021-08-29] VITALS: Ht 188 cm; Wt 124.7 kg
[~2021-08-29 16:02] MED LIST changes: +ATOR20 PO; +GLIP2.5ER PO; +POTCHL20ER PO; +Percocet 5-3251 EACH PO; +XARELTO20 MG PO; +[UNRECOGNIZED DRUG - OTHER] INJ
[2021-08-29 16:53] LABS: Source, Urine Clean Catch
[2021-08-29 17:01] LABS: BASOPHILS ABSOLUTE AUTO 0.08 K/mm3 (0.00-0.23); BASOPHILS PERCENT AUTO 1 % (0-2); EOSINOPHILS ABSOLUTE AUTO 0.15 K/mm3 (0.00-0.68); EOSINOPHILS PERCENT AUTO 1 % (0-6); Hematocrit 40.4 % (37.0-53.0); Hemoglobin 13.6 g/dL (13.5-17.5); IMMATURE GRAN ABSOLUTE AUTO 0.39 K/mm3 (0.00-0.10); IMMATURE GRAN PERCENT AUTO 4 % (0-1); LYMPHOCYTES ABSOLUTE AUTO 0.92 K/mm3 (0.84-5.20); LYMPHOCYTES PERCENT AUTO 8 % (21-46); MONOCYTES ABSOLUTE AUTO 1.06 K/mm3 (0.16-1.47); MONOCYTES PERCENT AUTO 10 % (4-13); Mean Corpuscular HGB Conc 33.7 g/dL (31.5-36.5); Mean Corpuscular Volume 92 fL (80-100); Mean Platelet Volume 9.8 fL (9.1-12.4); NEUTROPHILS ABSOLUTE AUTO 8.43 K/mm3 (1.96-9.15); NEUTROPHILS PERCENT AUTO 77 % (41-73); Platelet Count 200 K/mm3 (150-400); RDW Coefficient Variation 13.5 % (11.7-14.2); RDW Standard Deviation 46.1 fL (35.1-46.3); Red Blood Cell Count 4.39 M/mm3 (4.30-5.90); White Blood Cell Count 11.03 K/mm3 (4.00-11.30)
[2021-08-29 17:03] LABS: Appearance, Urine Clear (Clear); Bilirubin, Urine Neg (Neg); Blood, Urine 1+ (Neg); Glucose Qualitative, Urine Neg (Neg); Ketones, Urine Neg (Neg); Leukocyte Esterase, Urine Neg (Neg); Nitrite, Urine Neg (Neg); Protein, Urine 2+ (Neg); Urobilinogen, Urine NORM (Normal)
[2021-08-29 17:15] LABS: Color, Urine Pale Yellow (P-Yellow)
[2021-08-29 17:17] LABS: Bacteria Rare /hpf; Squamous Epithelial Cells Rare /hpf (Few); White Blood Cells, Urine 0-2 /hpf (0-5)
[2021-08-29 17:19] LABS: Albumin, Blood 2.8 g/dL (3.4-5.0); Albumin/Globulin Ratio 0.8 (0.8-1.8); Bilirubin, Total 0.4 mg/dL (0.1-1.0); Bun/Creatinine Ratio 23.7 (12.0-20.0); Calcium, Blood 9.3 mg/dL (8.5-10.1); Creatinine, Blood 1.69 mg/dL (0.60-1.20); Globulin, Blood 3.3 g/dL (2.2-4.0); Potassium, Blood 3.6 mmol/L (3.5-5.5); Total Protein, Blood 6.1 g/dL (6.4-8.2)
[2021-08-29 17:51] LABS: Thyroid Stimulating Hormone 0.596 uIU/mL (0.360-4.800)
== END 2021-08-29 20:00 | disposition home or self-care (01) ==
LOC: ER 16:02
PROVIDERS: Emergency Medicine
DX: R53.1 Weakness (principal); I13.0 Hypertensive heart and chronic kidney disease with heart failure and stage 1 through stage 4 chronic kidney disease, or unspecified chronic kidney disease; N18.30 Chronic kidney disease, stage 3 unspecified; I50.9 Heart failure, unspecified; Z91.013 Allergy to seafood; Z91.040 Latex allergy status; Z88.8 Allergy status to other drugs, medicaments and biological substances; Z79.899 Other long term (current) drug therapy
CPT/HCPCS: 71045; 80053; 81001; 83735; 84443; 85025

== ENCOUNTER 2021-09-03 15:12 | Emergency (ER) | payer OTHER ==
[~2021-09-03] VITALS: Ht 188 cm; Wt 117.9 kg
[2021-09-03 15:46] LABS: Hematocrit 44.5 % (37.0-53.0); Mean Corpuscular HGB 30.7 pg (26.0-34.0); Mean Corpuscular HGB Conc 33.7 g/dL (31.5-36.5); Mean Corpuscular Volume 91 fL (80-100); Mean Platelet Volume 9.7 fL (9.1-12.4); Platelet Count 268 K/mm3 (150-400); RDW Coefficient Variation 13.2 % (11.7-14.2); RDW Standard Deviation 44.6 fL (35.1-46.3); Red Blood Cell Count 4.89 M/mm3 (4.30-5.90); White Blood Cell Count 11.01 K/mm3 (4.00-11.30)
[2021-09-03 16:06] LABS: Albumin, Blood 2.8 g/dL (3.4-5.0); Albumin/Globulin Ratio 0.9 (0.8-1.8); Bilirubin, Total 0.3 mg/dL (0.1-1.0); Calcium, Blood 8.3 mg/dL (8.5-10.1); Creatinine, Blood 1.81 mg/dL (0.60-1.20); Globulin, Blood 3.2 g/dL (2.2-4.0); Potassium, Blood 3.4 mmol/L (3.5-5.5)
[2021-09-03 16:11] LABS: BASOPHILS PERCENT MAN 0 % (0-2); EOSINOPHILS ABSOLUTE MAN 0.44 K/mm3 (0.00-0.68); EOSINOPHILS PERCENT MAN 4 % (0-6); LYMPHOCYTES ABSOLUTE MAN 1.98 K/mm3 (0.84-5.20); LYMPHOCYTES PERCENT MAN 18 % (21-46); METAMYELOCYTE ABSOLUTE MAN 0.33 K/mm3 (0.00-0.00); METAMYELOCYTE PERCENT MAN 3 % (0-0); MONOCYTES ABSOLUTE MAN 0.66 K/mm3 (0.16-1.47); MONOCYTES PERCENT MAN 6 % (4-13); MYELOCYTE ABSOLUTE MAN 0.55 K/mm3 (0.00-0.00); MYELOCYTE PERCENT MAN 5 % (0-0); NEUTROPHILS ABSOLUTE MAN 7.04 K/mm3 (1.96-9.15); SEG NEUTROPHILS PERCENT MAN 64 % (41-73); TOTAL CELLS COUNTED 100
[2021-09-03] MEDS ORDERED: GLIP5 PO (19:09)
== END 2021-09-03 19:37 | disposition home or self-care (01) ==
LOC: ER 15:12
PROVIDERS: Emergency Medicine
DX: R55 Syncope and collapse (principal); I13.0 Hypertensive heart and chronic kidney disease with heart failure and stage 1 through stage 4 chronic kidney disease, or unspecified chronic kidney disease; N18.30 Chronic kidney disease, stage 3 unspecified; I50.9 Heart failure, unspecified; E78.5 Hyperlipidemia, unspecified; G25.81 Restless legs syndrome; I25.10 Atherosclerotic heart disease of native coronary artery without angina pectoris; Z79.899 Other long term (current) drug therapy; Z88.8 Allergy status to other drugs, medicaments and biological substances; Z91.040 Latex allergy status; Z91.013 Allergy to seafood
CPT/HCPCS: 36415; 71045; 80053; 83880; 84484; 85025; 93005; 93010

== ENCOUNTER 2021-09-06 09:38 | Emergency (ER) | payer OTHER ==
[~2021-09-06] VITALS: Ht 188 cm; Wt 113.4 kg
[~2021-09-06 09:38] MED LIST changes: +GLIP5 PO
[2021-09-06 10:45] LABS: Bun/Creatinine Ratio 23.8 (12.0-20.0); Calcium, Blood 8.5 mg/dL (8.5-10.1); Creatinine, Blood 1.64 mg/dL (0.60-1.20)
[2021-09-06] MEDS ORDERED: XARELTO20 MG PO (11:46)
[2021-09-06] MEDS ORDERED: GLIP5 PO (11:46)
[2021-09-06] MEDS ORDERED: BUME2 PO (11:55)
[2021-09-06] MEDS ORDERED: OYSTER SHELL 51 EAC2 PO (12:21)
== END 2021-09-06 13:02 | disposition home or self-care (01) ==
LOC: ER 09:38
PROVIDERS: Student in an Organized Health Care Education/Training Program
DX: R55 Syncope and collapse (principal); S06.9X9A Unspecified intracranial injury with loss of consciousness of unspecified duration, initial encounter; Z76.0 Encounter for issue of repeat prescription; E87.6 Hypokalemia; T50.2X5A Adverse effect of carbonic-anhydrase inhibitors, benzothiadiazides and other diuretics, initial encounter; I13.0 Hypertensive heart and chronic kidney disease with heart failure and stage 1 through stage 4 chronic kidney disease, or unspecified chronic kidney disease; N18.30 Chronic kidney disease, stage 3 unspecified; I50.30 Unspecified diastolic (congestive) heart failure; D63.8 Anemia in other chronic diseases classified elsewhere; E78.5 Hyperlipidemia, unspecified; I25.10 Atherosclerotic heart disease of native coronary artery without angina pectoris; F32.A Depression, unspecified; Z79.01 Long term (current) use of anticoagulants; Z79.899 Other long term (current) drug therapy; Z88.8 Allergy status to other drugs, medicaments and biological substances; Z91.040 Latex allergy status; Z91.013 Allergy to seafood; Z79.84 Long term (current) use of oral hypoglycemic drugs; W18.30XA Fall on same level, unspecified, initial encounter; Y92.003 Bedroom of unspecified non-institutional (private) residence as the place of occurrence of the external cause
CPT/HCPCS: 80048; 93005; 93010; A9270; J7030

== ENCOUNTER 2021-09-10 17:14 | Emergency (ER) | payer OTHER ==
[~2021-09-10] VITALS: Ht 188 cm; Wt 111.1 kg
[~2021-09-10 17:14] MED LIST changes: +OYSTER SHELL 51 EAC2 PO
[2021-09-10 17:49] LABS: Hematocrit 43.6 % (37.0-53.0); Hemoglobin 14.9 g/dL (13.5-17.5); Mean Corpuscular HGB 31.2 pg (26.0-34.0); Mean Corpuscular HGB Conc 34.2 g/dL (31.5-36.5); Mean Corpuscular Volume 91 fL (80-100); Platelet Count 263 K/mm3 (150-400); RDW Coefficient Variation 13.6 % (11.7-14.2); RDW Standard Deviation 45.7 fL (35.1-46.3); Red Blood Cell Count 4.77 M/mm3 (4.30-5.90); White Blood Cell Count 11.17 K/mm3 (4.00-11.30)
[2021-09-10 18:00] LABS: Albumin/Globulin Ratio 0.9 (0.8-1.8); Bilirubin, Total 0.4 mg/dL (0.1-1.0); Bun/Creatinine Ratio 21.5 (12.0-20.0); Calcium, Blood 9.3 mg/dL (8.5-10.1); Creatinine, Blood 1.95 mg/dL (0.60-1.20); Globulin, Blood 3.3 g/dL (2.2-4.0); Potassium, Blood 4.1 mmol/L (3.5-5.5); Total Protein, Blood 6.3 g/dL (6.4-8.2)
[2021-09-10 18:31] LABS: BAND PERCENT MAN 2 % (0-8); BASOPHILS ABSOLUTE MAN 0.11 K/mm3 (0.00-0.23); BASOPHILS PERCENT MAN 1 % (0-2); EOSINOPHILS ABSOLUTE MAN 0.11 K/mm3 (0.00-0.68); EOSINOPHILS PERCENT MAN 1 % (0-6); LYMPHOCYTES ABSOLUTE MAN 1.22 K/mm3 (0.84-5.20); LYMPHOCYTES PERCENT MAN 11 % (21-46); METAMYELOCYTE ABSOLUTE MAN 0.33 K/mm3 (0.00-0.00); METAMYELOCYTE PERCENT MAN 3 % (0-0); MONOCYTES ABSOLUTE MAN 0.89 K/mm3 (0.16-1.47); MONOCYTES PERCENT MAN 8 % (4-13); NEUTROPHILS ABSOLUTE MAN 8.48 K/mm3 (1.96-9.15); SEG NEUTROPHILS PERCENT MAN 74 % (41-73); TOTAL CELLS COUNTED 100
== END 2021-09-10 21:29 | disposition home or self-care (01) ==
LOC: ER 17:14
PROVIDERS: Physician Assistant
DX: R55 Syncope and collapse (principal); I13.0 Hypertensive heart and chronic kidney disease with heart failure and stage 1 through stage 4 chronic kidney disease, or unspecified chronic kidney disease; N18.30 Chronic kidney disease, stage 3 unspecified; I50.9 Heart failure, unspecified; E78.5 Hyperlipidemia, unspecified; I25.10 Atherosclerotic heart disease of native coronary artery without angina pectoris; Z79.84 Long term (current) use of oral hypoglycemic drugs; Z79.899 Other long term (current) drug therapy; Z79.01 Long term (current) use of anticoagulants; Z88.8 Allergy status to other drugs, medicaments and biological substances; Z91.040 Latex allergy status; Z91.013 Allergy to seafood
CPT/HCPCS: 71045; 80053; 83880; 84484; 85025; 93005; 93010; J7030

== ENCOUNTER 2021-09-15 08:38 | Emergency (ER) | payer OTHER ==
[~2021-09-15] VITALS: Ht 188 cm; Wt 111.1 kg
[2021-09-15 09:24] LABS: BASOPHILS ABSOLUTE AUTO 0.05 K/mm3 (0.00-0.23); BASOPHILS PERCENT AUTO 0 % (0-2); EOSINOPHILS ABSOLUTE AUTO 0.11 K/mm3 (0.00-0.68); EOSINOPHILS PERCENT AUTO 1 % (0-6); Hematocrit 39.4 % (37.0-53.0); Hemoglobin 13.3 g/dL (13.5-17.5); IMMATURE GRAN ABSOLUTE AUTO 0.63 K/mm3 (0.00-0.10); IMMATURE GRAN PERCENT AUTO 5 % (0-1); LYMPHOCYTES PERCENT AUTO 12 % (21-46); MONOCYTES ABSOLUTE AUTO 1.39 K/mm3 (0.16-1.47); MONOCYTES PERCENT AUTO 11 % (4-13); Mean Corpuscular HGB 30.8 pg (26.0-34.0); Mean Corpuscular HGB Conc 33.8 g/dL (31.5-36.5); Mean Corpuscular Volume 91 fL (80-100); Mean Platelet Volume 9.8 fL (9.1-12.4); NEUTROPHILS ABSOLUTE AUTO 9.28 K/mm3 (1.96-9.15); NEUTROPHILS PERCENT AUTO 72 % (41-73); Platelet Count 214 K/mm3 (150-400); RDW Coefficient Variation 13.4 % (11.7-14.2); RDW Standard Deviation 44.7 fL (35.1-46.3); Red Blood Cell Count 4.32 M/mm3 (4.30-5.90); White Blood Cell Count 12.96 K/mm3 (4.00-11.30)
[2021-09-15 09:32] LABS: Bilirubin, Total 0.6 mg/dL (0.1-1.0); Bun/Creatinine Ratio 26.4 (12.0-20.0); Calcium, Blood 8.6 mg/dL (8.5-10.1); Creatinine, Blood 1.59 mg/dL (0.60-1.20); Globulin, Blood 3.1 g/dL (2.2-4.0); Potassium, Blood 2.8 mmol/L (3.5-5.5); Total Protein, Blood 6.1 g/dL (6.4-8.2)
[2021-09-15 09:55] LABS: D-Dimer, Quantitative 1.52 mg/L FEU (0.00-0.52); International Normalized Ratio 1.41; Prothrombin Time Results 14.5 Sec (9.7-11.5)
== END 2021-09-15 10:00 | disposition home or self-care (01) ==
LOC: ER 08:38
PROVIDERS: Physician Assistant
DX: R07.89 Other chest pain (principal); I25.2 Old myocardial infarction; I13.0 Hypertensive heart and chronic kidney disease with heart failure and stage 1 through stage 4 chronic kidney disease, or unspecified chronic kidney disease; N18.30 Chronic kidney disease, stage 3 unspecified; I50.9 Heart failure, unspecified; I25.10 Atherosclerotic heart disease of native coronary artery without angina pectoris; E78.5 Hyperlipidemia, unspecified; Z88.8 Allergy status to other drugs, medicaments and biological substances; Z91.040 Latex allergy status; Z91.013 Allergy to seafood; Z79.01 Long term (current) use of anticoagulants; Z79.899 Other long term (current) drug therapy; Z53.29 Procedure and treatment not carried out because of patient's decision for other reasons
CPT/HCPCS: 36415; 71045; 80053; 83690; 84484; 85025; 85379; 85610; 85730; 93005; 93010; 99285-25; A9270; J3480; J7050

== ENCOUNTER 2021-11-13 20:03 | Observation (INO) | payer OTHER ==
[~2021-11-13] VITALS: Ht 188 cm; Wt 113.4 kg
[~2021-11-13 20:03] MED LIST changes: +K-Dur20 MEQ PO; +[UNRECOGNIZED DRUG - OTHER] SC
[2021-11-13 20:28] LABS: BASOPHILS ABSOLUTE AUTO 0.11 K/mm3 (0.00-0.23); BASOPHILS PERCENT AUTO 1 % (0-2); EOSINOPHILS ABSOLUTE AUTO 0.18 K/mm3 (0.00-0.68); EOSINOPHILS PERCENT AUTO 2 % (0-6); Hematocrit 41.9 % (37.0-53.0); Hemoglobin 14.3 g/dL (13.5-17.5); IMMATURE GRAN ABSOLUTE AUTO 0.53 K/mm3 (0.00-0.10); IMMATURE GRAN PERCENT AUTO 5 % (0-1); LYMPHOCYTES ABSOLUTE AUTO 1.56 K/mm3 (0.84-5.20); LYMPHOCYTES PERCENT AUTO 14 % (21-46); MONOCYTES ABSOLUTE AUTO 1.24 K/mm3 (0.16-1.47); MONOCYTES PERCENT AUTO 12 % (4-13); Mean Corpuscular HGB Conc 34.1 g/dL (31.5-36.5); Mean Corpuscular Volume 91 fL (80-100); Mean Platelet Volume 9.4 fL (9.1-12.4); NEUTROPHILS PERCENT AUTO 67 % (41-73); Platelet Count 256 K/mm3 (150-400); RDW Coefficient Variation 13.8 % (11.7-14.2); RDW Standard Deviation 46.5 fL (35.1-46.3); Red Blood Cell Count 4.61 M/mm3 (4.30-5.90); White Blood Cell Count 10.82 K/mm3 (4.00-11.30)
[2021-11-13 21:10] LABS: Albumin, Blood 3.2 g/dL (3.4-5.0); Albumin/Globulin Ratio 0.9 (0.8-1.8); Bilirubin, Total 0.4 mg/dL (0.1-1.0); Bun/Creatinine Ratio 26.9 (12.0-20.0); Calcium, Blood 8.9 mg/dL (8.5-10.1); Creatinine, Blood 1.86 mg/dL (0.60-1.20); Globulin, Blood 3.4 g/dL (2.2-4.0); Potassium, Blood 3.7 mmol/L (3.5-5.5); Total Protein, Blood 6.6 g/dL (6.4-8.2)
[2021-11-13 23:12] LABS: Influenza A, PCR NEGATIVE (NEGATIVE); Influenza B, PCR NEGATIVE (NEGATIVE); Resp Syncytial Virus, PCR NEGATIVE (NEGATIVE); SARS-Cov-2 (COVID-19) PCR, MMC NEGATIVE (NEGATIVE)
--- NOTE | 2021-11-14 00:58 | NUR ---
transfer report from Simone on 66 year old [employer] Disabled with multiple health problems. Had syncopal episode reported to last 10 seconds. 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 Will be tele obs PT . IV fluids ordered.
--- NOTE | 2021-11-14 01:28 | NUR ---
DR Judd called to clarify if troponin was Q 3 hours 1st troponin neg. PT to floor 0045 & had 2330 & 0230 ordered. PT on xaralto for PES DVT Ddimer neg. Order to dc VQ scan from DR. Nath to collect 0230 AM troponin. PT disabled [place] recent hospitalization, PT says no assistance available at home. PT says cardiac abliation within 6 months. Orthostatic VS completed. PT has intention tremors. Requests food on arrival . Tele monitor shows sinus tach 105, denies chest pain currently some pressure. Continue to assess.
[2021-11-14] MEDS ORDERED: FLUO10 PO (03:12)
[2021-11-14] MEDS ORDERED: METO5 PO (03:13)
[2021-11-14 05:58] LABS: Hematocrit 40.9 % (37.0-53.0); Hemoglobin 13.5 g/dL (13.5-17.5); Mean Corpuscular HGB 30.6 pg (26.0-34.0); Mean Corpuscular Volume 93 fL (80-100); Mean Platelet Volume 9.8 fL (9.1-12.4); Platelet Count 232 K/mm3 (150-400); RDW Coefficient Variation 13.8 % (11.7-14.2); RDW Standard Deviation 47.1 fL (35.1-46.3); Red Blood Cell Count 4.41 M/mm3 (4.30-5.90); White Blood Cell Count 9.05 K/mm3 (4.00-11.30)
[2021-11-14 06:13] LABS: Bun/Creatinine Ratio 26.8 (12.0-20.0); Calcium, Blood 8.7 mg/dL (8.5-10.1); Creatinine, Blood 1.68 mg/dL (0.60-1.20); Potassium, Blood 3.5 mmol/L (3.5-5.5)
[2021-11-14 06:34] LABS: BAND PERCENT MAN 4 % (0-8); BASOPHILS PERCENT MAN 0 % (0-2); EOSINOPHILS PERCENT MAN 0 % (0-6); LYMPHOCYTES ABSOLUTE MAN 1.53 K/mm3 (0.84-5.20); LYMPHOCYTES PERCENT MAN 17 % (21-46); METAMYELOCYTE ABSOLUTE MAN 0.18 K/mm3 (0.00-0.00); METAMYELOCYTE PERCENT MAN 2 % (0-0); MONOCYTES ABSOLUTE MAN 0.45 K/mm3 (0.16-1.47); MONOCYTES PERCENT MAN 5 % (4-13); MYELOCYTE ABSOLUTE MAN 0.81 K/mm3 (0.00-0.00); MYELOCYTE PERCENT MAN 9 % (0-0); NEUTROPHILS ABSOLUTE MAN 6.06 K/mm3 (1.96-9.15); SEG NEUTROPHILS PERCENT MAN 63 % (41-73); TOTAL CELLS COUNTED 100
--- NOTE | 2021-11-14 08:12 | NUR ---
pt laying in bed on his side, a/ox3, flat, forgetful, cooperative with care, follows commands well, denies pain, sob, dizziness in bed, states he feels ok, and can ambulate, lungs are clear dim in bases, on r/a, resp even and unlabored, no cough noted, hrr, tele in place running sr to st per monitor, see strip, +1 edema noted to b/l le, cap refill <3sec, vs stable, afebrile, iv to lac site is clear and patent, btx4, abd round soft nontender, voids via urinal, skin c/w/d, maew, christy, call light in reach.
--- NOTE | 2021-11-14 11:25 | NUR ---
pt has been discharged to home with zio patch, called cardiology office for appt for follow up they will call him for appt, iv removed intact, zio patch applied with instructions, went over discharge instructions, he verbalized understanding, no new medications, left via wheelchair with environmental monitoring technician in attendence with all his belongings.
== END 2021-11-14 11:25 | disposition home or self-care (01) ==
LOC: ER 20:03 → MEDS 23:13
PROVIDERS: Emergency Medicine; Student in an Organized Health Care Education/Training Program; ADMIT Family Medicine
DX: R55 Syncope and collapse (principal); E86.0 Dehydration; I13.0 Hypertensive heart and chronic kidney disease with heart failure and stage 1 through stage 4 chronic kidney disease, or unspecified chronic kidney disease; N18.30 Chronic kidney disease, stage 3 unspecified; I50.32 Chronic diastolic (congestive) heart failure; E11.22 Type 2 diabetes mellitus with diabetic chronic kidney disease; I25.10 Atherosclerotic heart disease of native coronary artery without angina pectoris; E78.5 Hyperlipidemia, unspecified; I45.6 Pre-excitation syndrome; Z88.8 Allergy status to other drugs, medicaments and biological substances; Z91.040 Latex allergy status; Z91.013 Allergy to seafood; Z79.899 Other long term (current) drug therapy; Z79.84 Long term (current) use of oral hypoglycemic drugs; Z79.01 Long term (current) use of anticoagulants; Z86.711 Personal history of pulmonary embolism; Z86.718 Personal history of other venous thrombosis and embolism; Z20.822 Contact with and (suspected) exposure to COVID-19
CPT/HCPCS: 0241U; 36415; 71045; 80048; 80053; 82533; 82947; 83880; 84484; 85025; 85379; 93005; 93010; 93246; 94760; J7030

== ENCOUNTER 2021-11-28 13:00 | Emergency (ER) | payer OTHER ==
[~2021-11-28] VITALS: Ht 188 cm; Wt 115.7 kg
[2021-11-28 13:24] LABS: BASOPHILS ABSOLUTE AUTO 0.07 K/mm3 (0.00-0.23); BASOPHILS PERCENT AUTO 1 % (0-2); EOSINOPHILS ABSOLUTE AUTO 0.19 K/mm3 (0.00-0.68); EOSINOPHILS PERCENT AUTO 2 % (0-6); Hematocrit 39.9 % (37.0-53.0); Hemoglobin 13.3 g/dL (13.5-17.5); IMMATURE GRAN PERCENT AUTO 2 % (0-1); LYMPHOCYTES ABSOLUTE AUTO 1.26 K/mm3 (0.84-5.20); LYMPHOCYTES PERCENT AUTO 10 % (21-46); MONOCYTES ABSOLUTE AUTO 1.04 K/mm3 (0.16-1.47); MONOCYTES PERCENT AUTO 8 % (4-13); Mean Corpuscular HGB 30.8 pg (26.0-34.0); Mean Corpuscular HGB Conc 33.3 g/dL (31.5-36.5); Mean Corpuscular Volume 92 fL (80-100); Mean Platelet Volume 9.8 fL (9.1-12.4); NEUTROPHILS ABSOLUTE AUTO 9.53 K/mm3 (1.96-9.15); NEUTROPHILS PERCENT AUTO 77 % (41-73); Platelet Count 227 K/mm3 (150-400); RDW Coefficient Variation 13.6 % (11.7-14.2); RDW Standard Deviation 46.4 fL (35.1-46.3); Red Blood Cell Count 4.32 M/mm3 (4.30-5.90); White Blood Cell Count 12.39 K/mm3 (4.00-11.30)
[2021-11-28 13:50] LABS: Albumin, Blood 2.9 g/dL (3.4-5.0); Bilirubin, Total 0.3 mg/dL (0.1-1.0); Bun/Creatinine Ratio 31.4 (12.0-20.0); Calcium, Blood 8.8 mg/dL (8.5-10.1); Creatinine, Blood 1.53 mg/dL (0.60-1.20); Potassium, Blood 3.8 mmol/L (3.5-5.5); Total Protein, Blood 5.9 g/dL (6.4-8.2)
== END 2021-11-28 17:00 | disposition home or self-care (01) ==
LOC: ER 13:00
PROVIDERS: Emergency Medicine
DX: R07.89 Other chest pain (principal); I13.0 Hypertensive heart and chronic kidney disease with heart failure and stage 1 through stage 4 chronic kidney disease, or unspecified chronic kidney disease; N18.30 Chronic kidney disease, stage 3 unspecified; I50.9 Heart failure, unspecified; E78.5 Hyperlipidemia, unspecified; I25.10 Atherosclerotic heart disease of native coronary artery without angina pectoris; Z79.899 Other long term (current) drug therapy; Z79.01 Long term (current) use of anticoagulants; Z88.8 Allergy status to other drugs, medicaments and biological substances; Z91.040 Latex allergy status; Z91.013 Allergy to seafood
CPT/HCPCS: 71045; 80053; 84484; 85025; 93005; 93010

== ENCOUNTER 2021-12-15 19:03 | Emergency (ER) | payer OTHER ==
[~2021-12-15] VITALS: Ht 188 cm; Wt 115.7 kg
[2021-12-15 20:02] LABS: BASOPHILS ABSOLUTE AUTO 0.15 K/mm3 (0.00-0.23); BASOPHILS PERCENT AUTO 1 % (0-2); EOSINOPHILS ABSOLUTE AUTO 0.28 K/mm3 (0.00-0.68); EOSINOPHILS PERCENT AUTO 3 % (0-6); Hematocrit 43.3 % (37.0-53.0); Hemoglobin 14.6 g/dL (13.5-17.5); IMMATURE GRAN ABSOLUTE AUTO 0.49 K/mm3 (0.00-0.10); IMMATURE GRAN PERCENT AUTO 5 % (0-1); LYMPHOCYTES ABSOLUTE AUTO 1.37 K/mm3 (0.84-5.20); LYMPHOCYTES PERCENT AUTO 13 % (21-46); MONOCYTES PERCENT AUTO 11 % (4-13); Mean Corpuscular HGB 30.2 pg (26.0-34.0); Mean Corpuscular HGB Conc 33.7 g/dL (31.5-36.5); Mean Corpuscular Volume 90 fL (80-100); Mean Platelet Volume 10.2 fL (9.1-12.4); NEUTROPHILS ABSOLUTE AUTO 7.02 K/mm3 (1.96-9.15); NEUTROPHILS PERCENT AUTO 67 % (41-73); Platelet Count 247 K/mm3 (150-400); RDW Coefficient Variation 13.4 % (11.7-14.2); Red Blood Cell Count 4.83 M/mm3 (4.30-5.90); White Blood Cell Count 10.51 K/mm3 (4.00-11.30)
[2021-12-15 20:14] LABS: Albumin/Globulin Ratio 0.9 (0.8-1.8); Bilirubin, Total 0.5 mg/dL (0.1-1.0); Bun/Creatinine Ratio 24.7 (12.0-20.0); Calcium, Blood 9.3 mg/dL (8.5-10.1); Creatinine, Blood 1.86 mg/dL (0.60-1.20); Globulin, Blood 3.3 g/dL (2.2-4.0); Total Protein, Blood 6.3 g/dL (6.4-8.2)
[2021-12-15] MEDS ORDERED: Pepcid40 MG PO (22:02)
== END 2021-12-15 22:13 | disposition home or self-care (01) ==
LOC: ER 19:03
PROVIDERS: Emergency Medicine
DX: R07.2 Precordial pain (principal); I13.0 Hypertensive heart and chronic kidney disease with heart failure and stage 1 through stage 4 chronic kidney disease, or unspecified chronic kidney disease; N18.30 Chronic kidney disease, stage 3 unspecified; I50.9 Heart failure, unspecified; E78.5 Hyperlipidemia, unspecified; I25.10 Atherosclerotic heart disease of native coronary artery without angina pectoris; Z79.899 Other long term (current) drug therapy; Z79.01 Long term (current) use of anticoagulants; Z88.8 Allergy status to other drugs, medicaments and biological substances; Z91.040 Latex allergy status; Z91.013 Allergy to seafood
CPT/HCPCS: 36415; 80053; 84484; 85025; 93005; 93010; 99285-25; A9270

== ENCOUNTER 2022-02-17 11:55 | Emergency (ER) | payer OTHER ==
[~2022-02-17] VITALS: Ht 188 cm; Wt 117.9 kg
[~2022-02-17 11:55] MED LIST changes: +Pepcid40 MG PO
[2022-02-17 12:32] LABS: BASOPHILS ABSOLUTE AUTO 0.09 K/mm3 (0.00-0.23); BASOPHILS PERCENT AUTO 1 % (0-2); EOSINOPHILS ABSOLUTE AUTO 0.24 K/mm3 (0.00-0.68); EOSINOPHILS PERCENT AUTO 3 % (0-6); Hematocrit 46.2 % (37.0-53.0); IMMATURE GRAN ABSOLUTE AUTO 0.18 K/mm3 (0.00-0.10); IMMATURE GRAN PERCENT AUTO 2 % (0-1); LYMPHOCYTES ABSOLUTE AUTO 1.43 K/mm3 (0.84-5.20); LYMPHOCYTES PERCENT AUTO 16 % (21-46); MONOCYTES ABSOLUTE AUTO 1.15 K/mm3 (0.16-1.47); MONOCYTES PERCENT AUTO 13 % (4-13); Mean Corpuscular HGB 28.8 pg (26.0-34.0); Mean Corpuscular HGB Conc 32.5 g/dL (31.5-36.5); Mean Corpuscular Volume 89 fL (80-100); Mean Platelet Volume 9.9 fL (9.1-12.4); NEUTROPHILS ABSOLUTE AUTO 5.81 K/mm3 (1.96-9.15); NEUTROPHILS PERCENT AUTO 65 % (41-73); Platelet Count 253 K/mm3 (150-400); RDW Coefficient Variation 13.5 % (11.7-14.2); RDW Standard Deviation 43.8 fL (35.1-46.3); Red Blood Cell Count 5.21 M/mm3 (4.30-5.90)
[2022-02-17] MEDS ORDERED: CALC.25 PO (12:36)
[2022-02-17] MEDS ORDERED: CALCIUM 500 MG1 EAC2 PO (12:37)
[2022-02-17] MEDS ORDERED: BUME2 PO (12:39)
[2022-02-17] MEDS ORDERED: GLIP5 PO (12:39)
[2022-02-17 12:58] LABS: Albumin, Blood 3.1 g/dL (3.4-5.0); Albumin/Globulin Ratio 0.9 (0.8-1.8); Bilirubin, Total 0.5 mg/dL (0.1-1.0); Bun/Creatinine Ratio 20.5 (12.0-20.0); Calcium, Blood 9.5 mg/dL (8.5-10.1); Creatinine, Blood 1.56 mg/dL (0.60-1.20); Globulin, Blood 3.6 g/dL (2.2-4.0); Total Protein, Blood 6.7 g/dL (6.4-8.2)
[2022-02-17 13:15] LABS: Source, Urine Clean Catch
[2022-02-17 13:18] LABS: Appearance, Urine Clear (Clear); Bilirubin, Urine Neg (Neg); Blood, Urine Neg (Neg); Glucose Qualitative, Urine Neg (Neg); Ketones, Urine Neg (Neg); Leukocyte Esterase, Urine Neg (Neg); Nitrite, Urine Neg (Neg); Protein, Urine 2+ (Neg); Urobilinogen, Urine NORM (Normal)
[2022-02-17 13:38] LABS: Color, Urine Pale Yellow (P-Yellow)
[2022-02-17 13:39] LABS: Bacteria Rare /hpf; Red Blood Cells, Urine 0-2 /hpf (0-2); Squamous Epithelial Cells Not Seen /hpf (Few); White Blood Cells, Urine 0-2 /hpf (0-5)
== END 2022-02-17 15:32 | disposition home or self-care (01) ==
LOC: ER 11:55
PROVIDERS: Student in an Organized Health Care Education/Training Program
DX: R55 Syncope and collapse (principal); I13.0 Hypertensive heart and chronic kidney disease with heart failure and stage 1 through stage 4 chronic kidney disease, or unspecified chronic kidney disease; N18.30 Chronic kidney disease, stage 3 unspecified; I50.9 Heart failure, unspecified; D63.1 Anemia in chronic kidney disease; I25.10 Atherosclerotic heart disease of native coronary artery without angina pectoris; E78.5 Hyperlipidemia, unspecified; Z91.013 Allergy to seafood; Z91.040 Latex allergy status; Z88.8 Allergy status to other drugs, medicaments and biological substances; Z79.899 Other long term (current) drug therapy; Z79.01 Long term (current) use of anticoagulants
CPT/HCPCS: 71046; 80053; 81001; 83735; 83880; 84484; 85025; 85379; 93005; 93010

== ENCOUNTER 2022-03-04 13:42 | Emergency (ER) | payer OTHER ==
[~2022-03-04] VITALS: Ht 188 cm; Wt 117.9 kg
[~2022-03-04 13:42] MED LIST changes: +CALCIUM 500 MG1 EAC2 PO
[2022-03-04 14:41] LABS: BASOPHILS ABSOLUTE AUTO 0.09 K/mm3 (0.00-0.23); BASOPHILS PERCENT AUTO 1 % (0-2); EOSINOPHILS ABSOLUTE AUTO 0.26 K/mm3 (0.00-0.68); EOSINOPHILS PERCENT AUTO 3 % (0-6); Hemoglobin 16.3 g/dL (13.5-17.5); IMMATURE GRAN ABSOLUTE AUTO 0.15 K/mm3 (0.00-0.10); IMMATURE GRAN PERCENT AUTO 2 % (0-1); LYMPHOCYTES ABSOLUTE AUTO 1.52 K/mm3 (0.84-5.20); LYMPHOCYTES PERCENT AUTO 17 % (21-46); MONOCYTES PERCENT AUTO 14 % (4-13); Mean Corpuscular HGB 29.5 pg (26.0-34.0); Mean Corpuscular Volume 87 fL (80-100); NEUTROPHILS ABSOLUTE AUTO 5.69 K/mm3 (1.96-9.15); NEUTROPHILS PERCENT AUTO 63 % (41-73); Platelet Count 286 K/mm3 (150-400); RDW Coefficient Variation 13.2 % (11.7-14.2); RDW Standard Deviation 42.3 fL (35.1-46.3); Red Blood Cell Count 5.53 M/mm3 (4.30-5.90); White Blood Cell Count 9.01 K/mm3 (4.00-11.30)
[2022-03-04 14:59] LABS: Albumin, Blood 3.2 g/dL (3.4-5.0); Albumin/Globulin Ratio 0.9 (0.8-1.8); Bilirubin, Total 0.3 mg/dL (0.1-1.0); Bun/Creatinine Ratio 26.7 (12.0-20.0); Calcium, Blood 9.1 mg/dL (8.5-10.1); Creatinine, Blood 1.87 mg/dL (0.60-1.20); Globulin, Blood 3.7 g/dL (2.2-4.0); Potassium, Blood 3.8 mmol/L (3.5-5.5); Total Protein, Blood 6.9 g/dL (6.4-8.2)
== END 2022-03-04 16:26 | disposition home or self-care (01) ==
LOC: ER 13:42
PROVIDERS: Student in an Organized Health Care Education/Training Program
DX: R55 Syncope and collapse (principal); W18.30XA Fall on same level, unspecified, initial encounter; Z91.040 Latex allergy status; Z88.8 Allergy status to other drugs, medicaments and biological substances; Z79.899 Other long term (current) drug therapy; N18.30 Chronic kidney disease, stage 3 unspecified; I13.0 Hypertensive heart and chronic kidney disease with heart failure and stage 1 through stage 4 chronic kidney disease, or unspecified chronic kidney disease; I50.9 Heart failure, unspecified; D63.1 Anemia in chronic kidney disease; E78.5 Hyperlipidemia, unspecified; I25.10 Atherosclerotic heart disease of native coronary artery without angina pectoris
CPT/HCPCS: 36415; 80053; 84484; 85025; 93005; 93010; 99284-25

== ENCOUNTER 2022-03-13 14:43 | Emergency (ER) | payer OTHER | END 2022-03-13 17:33 | disposition home or self-care (01) | DX: H11.31 Conjunctival hemorrhage, right eye (principal); E11.22 Type 2 diabetes mellitus with diabetic chronic kidney disease; N18.30 Chronic kidney disease, stage 3 unspecified; I25.2 Old myocardial infarction; W19.XXXA Unspecified fall, initial encounter; Z79.899 Other long term (current) drug therapy; Z79.82 Long term (current) use of aspirin ==

== ENCOUNTER 2022-03-26 18:34 | Emergency (ER) | payer OTHER ==
[~2022-03-26] VITALS: Ht 188 cm; Wt 117.9 kg
[2022-03-26 19:51] LABS: BASOPHILS PERCENT AUTO 1 % (0-2); EOSINOPHILS ABSOLUTE AUTO 0.21 K/mm3 (0.00-0.68); EOSINOPHILS PERCENT AUTO 2 % (0-6); Hematocrit 44.8 % (37.0-53.0); Hemoglobin 15.2 g/dL (13.5-17.5); IMMATURE GRAN ABSOLUTE AUTO 0.08 K/mm3 (0.00-0.10); IMMATURE GRAN PERCENT AUTO 1 % (0-1); LYMPHOCYTES ABSOLUTE AUTO 1.33 K/mm3 (0.84-5.20); LYMPHOCYTES PERCENT AUTO 15 % (21-46); MONOCYTES ABSOLUTE AUTO 0.98 K/mm3 (0.16-1.47); MONOCYTES PERCENT AUTO 11 % (4-13); Mean Corpuscular HGB 29.3 pg (26.0-34.0); Mean Corpuscular HGB Conc 33.9 g/dL (31.5-36.5); Mean Corpuscular Volume 87 fL (80-100); Mean Platelet Volume 10.1 fL (9.1-12.4); NEUTROPHILS ABSOLUTE AUTO 6.39 K/mm3 (1.96-9.15); NEUTROPHILS PERCENT AUTO 70 % (41-73); Platelet Count 256 K/mm3 (150-400); RDW Coefficient Variation 13.2 % (11.7-14.2); RDW Standard Deviation 41.7 fL (35.1-46.3); Red Blood Cell Count 5.18 M/mm3 (4.30-5.90); White Blood Cell Count 9.09 K/mm3 (4.00-11.30)
[2022-03-26 20:08] LABS: Albumin, Blood 3.1 g/dL (3.4-5.0); Albumin/Globulin Ratio 0.9 (0.8-1.8); Bilirubin, Total 0.5 mg/dL (0.1-1.0); Bun/Creatinine Ratio 24.2 (12.0-20.0); Calcium, Blood 8.9 mg/dL (8.5-10.1); Creatinine, Blood 2.11 mg/dL (0.60-1.20); Globulin, Blood 3.5 g/dL (2.2-4.0); Potassium, Blood 3.8 mmol/L (3.5-5.5); Total Protein, Blood 6.6 g/dL (6.4-8.2)
== END 2022-03-26 23:43 | disposition home or self-care (01) ==
LOC: ER 18:34
PROVIDERS: Physician Assistant
DX: R55 Syncope and collapse (principal); S09.90XA Unspecified injury of head, initial encounter; I13.0 Hypertensive heart and chronic kidney disease with heart failure and stage 1 through stage 4 chronic kidney disease, or unspecified chronic kidney disease; N18.30 Chronic kidney disease, stage 3 unspecified; I50.9 Heart failure, unspecified; E78.5 Hyperlipidemia, unspecified; I25.10 Atherosclerotic heart disease of native coronary artery without angina pectoris; W18.30XA Fall on same level, unspecified, initial encounter; Z88.8 Allergy status to other drugs, medicaments and biological substances; Z91.040 Latex allergy status; Z79.02 Long term (current) use of antithrombotics/antiplatelets; Z79.899 Other long term (current) drug therapy
CPT/HCPCS: 36415; 70450; 71046; 80053; 83880; 84484; 85025